=== PATIENT | male | born 1965 | race Caucasian/White ===

== ENCOUNTER 2020-03-02 14:16 | Outpatient (REF) | payer OTHER, SELFPAY ==
--- NOTE | 2020-03-02 14:19 | CT_ITS ---
EXAMINATION: CT CHEST WITHOUT CONTRAST CLINICAL INFORMATION: Necrotizing granulomatous inflammation of the lung. COMPARISON: None TECHNIQUE: Multidetector volumetric CT imaging of the chest was done. Axial MIP volume rendering provided. Sagittal and coronal reformatted images were obtained. This CT examination was performed using dose optimization techniques as appropriate, variously including the following: Automated exposure control Adjustment of mA and/or kV according to patient size (this includes techniques or standardized protocols for targeted exams where dose is matched to indication/reason for exam; i.e. extremities or head) Use of iterative reconstruction technique DLP: 167 mGy-cm FINDINGS: TABLE WORKER: Inflated lungs. LUNGS: There are post surgical changes in the left upper lobe with dense apical scar and/or postoperative changes similar to 06/21/2019. Small tubular/nodular opacities in the perihilar/medial left upper lobe extending to left apical pleural surface are stable. A dense apical lesion measuring 3.9 x 2.1 cm is stable. There is a left lower lobe basilar patchy opacity with surgical suture, stable since the previous study. Best visualized on axial image 341/7. No additional pulmonary nodule or mass is seen in either lungs. There is loss of left lung volume. There is bilateral emphysema. MEDIASTINUM: The thyroid lobes are symmetrical and normal. The central trachea and bronchi are widely patent. No abnormal sized mediastinal or hilar lymph nodes are seen. Heart size and the great vessels are of normal caliber. There is no pericardial effusion. PLEURA: There is no pleural effusion. No pleural mass or thickening. AXILLA: There are small shotty lymph nodes in bilateral axillae. UPPER ABDOMEN: Visualized liver, spleen, pancreas and bilateral adrenal glands are unremarkable. There are no radiopaque gallstones seen. OSSEOUS STRUCTURES: No lytic or sclerotic process seen. CT/CT chest wo con IMPRESSION: Post surgical changes left upper lung with a dense left apical mass-like opacity is unchanged. Small nodular opacities in the perihilar and medial left upper lobe extending to the left pleural space are similar to previous study. No change in mild emphysema.
== END 2020-03-02 14:17 | disposition home or self-care (01) ==
LOC: HO.CT 14:16
PROVIDERS: PCP Internal Medicine; Visit Provider Hospitalist
DX: M31.30 Wegener's granulomatosis without renal involvement (principal); R91.8 Other nonspecific abnormal finding of lung field; J84.89 Other specified interstitial pulmonary diseases
CPT/HCPCS: 71250

== ENCOUNTER → 2020-03-16 15:47 | Outpatient (BNVA) | payer OTHER, SELFPAY | PROVIDERS: PCP Internal Medicine; Visit Provider Hospitalist | DX: Z76.89 Persons encountering health services in other specified circumstances (principal) ==

== ENCOUNTER 2020-05-31 14:32 | Outpatient (REF) | payer OTHER, SELFPAY ==
[2020-05-31 17:41] LABS: TSH reflex Free T4 1.55 uIU/mL (0.32-4.0)
== END 2020-05-31 14:33 | disposition home or self-care (01) ==
LOC: HO.LAB 14:32
PROVIDERS: PCP Internal Medicine; Visit Provider Internal Medicine Cardiovascular Disease
DX: R06.00 Dyspnea, unspecified (principal); R06.02 Shortness of breath; R07.9 Chest pain, unspecified; I10 Essential (primary) hypertension; Z86.16 Personal history of COVID-19
CPT/HCPCS: 36415; 83880; 84443; 93005

== ENCOUNTER → 2020-06-08 14:12 | Outpatient (REF) | payer OTHER, SELFPAY ==
--- NOTE | 2020-06-08 14:15 | CA_ITS ---
Transthoracic Echocardiogram Patient (Last, First, Middle): Yazan Don A Gender: Male Date of : 1965 Age: 54 Procedure Date: 06/08/2020 Procedure Type: Transthoracic Echocardiogram Location: OP Height: 165.1 cm Weight: 97.52 kg BSA: 2.04 m2 Heart Rate: bpm BP: 148 / 90 mmHg Employee'S Representative: YANCY Ames MD: Jeremy Kinney MD Manager Regional Sales: Bassem Grey MD Symptoms: R06.00 - Dyspnea, unspecified Study Quality: Fair/Contrast ECG Rhythm: Sinus Conclusions: - Essentially normal study Findings Procedure Information Contrast agent, definity, is being given per protocol without apparent complications. Left Ventricle Normal left ventricular size, thickness, and systolic function. The visually estimated ejection fraction is between 60-65%. Diastolic function is normal for age. Right Ventricle Normal right ventricular cavity size and systolic function. Atria Both atria are normal in size. Aortic Valve The aortic valve structure and function is likely normal. There is no aortic valve stenosis. There is no aortic valve regurgitation. Mitral Valve Normal mitral valve structure and function. There is trace mitral valve regurgitation. There is no mitral valve stenosis. Pulmonic Valve The pulmonic valve is likely normal. Tricuspid Valve Likely normal tricuspid valve structure and function. Tricuspid regurgitation envelope is inadequate for calculation of right ventricular systolic pressure. Great Vessels All visible segments of the aorta are normal in size. The pulmonary artery was not well visualized. Venous The inferior vena cava is normal in size and collapses greater than 50% with inspiration. Pericardium/Pleural There is no evidence of pericardial effusion. Prior Study Comparison No prior study available for comparison. Measurements 2D Linear Measurements IVSd: 0.99 0.6-0.9/0.6-1.0 cm LVIDd: 4.27 3.9-5.3/4.2-5.9 cm LVIDd Index: 2.09 2.4-3.2/2.2-3.1 cm/m2 LVIDs: 3.09 2.0-3.6 cm LVPWd: 0.92 0.7-1.1 cm Ao Root: 3.30 2.1-3.5 cm LA Diam: 3.90 2.7-3.8/3.0-4.0 cm LAIDs Index: 1.91 1.5-2.3 cm/m2 LV Mass: 164.14 67-162/88-224 g LV Mass Index: 80.46 43-95/49-115 g/m2 LVOT Diam: 2.00 3.0+(-)1.3 cm 2D Systolic Function EF 4C: 59.10 >55% EF 2C: 66.00 >55% EF BiP: 63.00 >55% Mitral Valve MV Pk E: 0.77 MV PK A: 0.56 MV Decel Time: 292.00 E/A: 1.40 E'Lateral: 7.83 E'Medial: 6.64 E/E' Med: 11.60 E/E' Lat: 9.80 PHT: 86.00 MVA PHT: 2.56 Decel Mellette: 2.64 Aortic Valve AoV Pk Yfn: 1.39 AoV Mn Yfn: 0.95 AoV VTI: 0.29 AoV Pk Grad: 8.00 Aov Mn Grad: 4.00 TAZ Cont.VTI: 2.12 LVOT LVOT Pk Yfn: 0.91 LVOT Mn Yfn: 0.63 LVOT VTI: 0.20 LVOT Pk Grad: 3.00 LVOT Mn Grad: 2.00 LVOT Diam: 2.00 LVOT Area: 3.14 Diastolic Function MV Pk E: 0.77 MV Pk A: 0.56 E/A: 1.40 E'Medial: 6.64 E/E' Med: 11.60 E' Laterial: 7.83 E/E' Lat: 9.80 Great Vessels Aorta Ao Root-2D: 3.30 2.0-3.7 cm Ao Asc: 3.60 2.1-3.4 cm Ao Arch: 3.10 Updated in Other Vendor System with Status of Final Bassem Grey MD electronically signed on 06/08/2020 6:03:09 PM with status of Final
== END ==
LOC: HO.CARD 14:12
PROVIDERS: Visit Provider Internal Medicine Cardiovascular Disease
DX: R06.00 Dyspnea, unspecified (principal)
CPT/HCPCS: 93306; Q9957

== ENCOUNTER 2020-06-16 15:26 | Outpatient (REF) | payer OTHER, SELFPAY ==
--- NOTE | ~2020-06-16 | XR_ITS ---
EXAMINATION: XR CHEST CLINICAL INFORMATION: R07.89 - Other chest pain COMPARISON: CT chest noncontrast 03/02/2020, 06/21/2019 TECHNIQUE: 2 views of the chest were obtained. FINDINGS: There is patchy pleural parenchymal scarring left apex and density left base presumed to represent round atelectasis on CT exams. There is no new airspace consolidation or groundglass opacity or effusion. No pneumothorax or pneumomediastinum. The cardiac and hilar and mediastinal contours and bony structures are stable. XR/XR chest 2V IMPRESSION: Patchy densities left apex and left base similar to prior imaging. No acute abnormality.
[2020-06-16 17:12] LABS: MANUAL DIFF FLAG NO
[2020-06-16 17:23] LABS: Basophils Absolute Auto 0.1 X10*3/uL (0.0-0.2); Basophils Percent Auto 0.7 % (0-2); Eosinophils Absolute Auto 0.3 X10*3/uL (0.0-0.4); Eosinophils Percent Auto 2.3 % (0-4); Hematocrit 45.5 % (42-52); Hemoglobin 15.5 g/dl (14.0-18.0); Imm Gran Abs Auto 0.17 X10*3/uL (0.00-0.03); Imm Gran Pct Auto 1.3 % (0.0-0.4); Lymphocytes Absolute Auto 4.8 X10*3/uL (1.2-4.9); Lymphocytes Percent Auto 37.7 % (20-40); Mean Corpuscular HGB Conc 34.1 g/dl (31.0-36.0); Mean Corpuscular Hemoglobin 29.1 pg (27.0-33.0); Mean Corpuscular Volume 85.5 fL (80-98); Mean Platelet Volume 10.3 fL (9.4-12.4); Monocytes Absolute Auto 1.4 X10*3/uL (0.1-1.2); Monocytes Percent Auto 11.3 % (2-11); Neutrophils Absolute Auto 5.9 X10*3/uL (2.0-8.3); Neutrophils Percent Auto 46.7 % (45-73); Platelet Count 344 X10*3/uL (160-400); Red Blood Count 5.32 X10*6/uL (4.60-5.80); Red Cell Distribution Width 12.8 % (11.0-16.0); White Blood Count 12.7 X10*3/uL (4.8-10.8)
[2020-06-16 17:45] LABS: B Type Natriuretic Peptide 19 pg/mL (<100)
[2020-06-16 18:26] LABS: Erythrocyte Sedimentation Rate 5 MM/HR (0-15)
[2020-06-17 07:51] LABS: SARS COV2 IgG Positive (Negative)
== END 2020-06-16 15:27 | disposition home or self-care (01) ==
LOC: HO.LAB 15:26
PROVIDERS: PCP Internal Medicine; Visit Provider Hospitalist
DX: J64 Unspecified pneumoconiosis (principal); J45.40 Moderate persistent asthma, uncomplicated; R91.8 Other nonspecific abnormal finding of lung field; Z86.16 Personal history of COVID-19; Z01.84 Encounter for antibody response examination
CPT/HCPCS: 36415; 71046; 83880; 85025; 85652; 86769

== ENCOUNTER → 2020-06-29 14:35 | Outpatient (BNVA) | payer OTHER, SELFPAY | PROVIDERS: PCP Internal Medicine; Visit Provider Internal Medicine Cardiovascular Disease ==

== ENCOUNTER → 2020-07-27 07:51 | Outpatient (REF) | payer OTHER, SELFPAY ==
--- NOTE | 2020-07-27 07:58 | CA_ITS ---
Acquisition Time: 2020-07-27 08:02:00 Total Exercise Time: 00:06:33 Test Indications: Dyspnea Medications: FUROSEMIDE Protocol: YARIEL Max HR: 133 BPM 79% of Pred: 167 BPM Max BP: 210/090 mmHG Max Work Load: 7.7 METS Exercise stress test using Yariel protocol, total of 6 min 33 sec. METS 7.70 and TAPHR up to 79%. HR attenuated by betablocker. Hypertensive response to exercise. EKG without arrhythmia, no ischemic changes seen during exercise or in recovery. Test reviewed with Dr. Barrios Referred By: Jeremy Kinney Overread By: Blanca Correa NP
== END ==
LOC: HO.CARD 07:51
PROVIDERS: PCP Internal Medicine; Visit Provider Internal Medicine Cardiovascular Disease
DX: R06.00 Dyspnea, unspecified (principal)
CPT/HCPCS: 93016; 93017; 93018

== ENCOUNTER → 2020-08-03 14:23 | Outpatient (BNVA) | payer OTHER, SELFPAY | PROVIDERS: PCP Internal Medicine; Visit Provider Internal Medicine Cardiovascular Disease ==

== ENCOUNTER → 2020-08-04 14:55 | Outpatient (BNVA) | payer OTHER, SELFPAY | PROVIDERS: PCP Internal Medicine; Visit Provider Hospitalist ==

== ENCOUNTER → 2020-10-13 15:13 | Outpatient (BNVA) | payer OTHER, SELFPAY | PROVIDERS: PCP Internal Medicine; Visit Provider Hospitalist ==

== ENCOUNTER → 2021-01-03 15:07 | Outpatient (BNVA) | payer OTHER, SELFPAY | PROVIDERS: PCP Internal Medicine; Visit Provider Internal Medicine Cardiovascular Disease ==

== ENCOUNTER → 2021-02-22 14:26 | Outpatient (BNVA) | payer OTHER, SELFPAY | PROVIDERS: PCP Internal Medicine; Visit Provider Hospitalist ==

== ENCOUNTER → 2021-05-03 14:37 | Outpatient (BNVA) | payer OTHER, SELFPAY | PROVIDERS: PCP Internal Medicine; Visit Provider Hospitalist | DX: R91.8 Other nonspecific abnormal finding of lung field (principal); G89.12 Acute post-thoracotomy pain ==

== ENCOUNTER 2021-05-11 10:43 | Outpatient (REF) | payer OTHER, SELFPAY | END 2021-05-11 10:44 | disposition home or self-care (01) | LOC: HO.LNP 10:43 | PROVIDERS: Visit Provider Hospitalist | DX: Z13.89 Encounter for screening for other disorder (principal) ==

== ENCOUNTER → 2021-07-19 14:32 | Outpatient (BNVA) | payer OTHER, SELFPAY | PROVIDERS: PCP Internal Medicine; Referring Provider Internal Medicine; Visit Provider Internal Medicine Cardiovascular Disease | DX: R06.00 Dyspnea, unspecified (principal); I10 Essential (primary) hypertension | CPT/HCPCS: 93005 ==

== ENCOUNTER → 2021-07-27 12:55 | Outpatient (BNVA) | payer OTHER, SELFPAY | PROVIDERS: PCP Internal Medicine; Visit Provider Hospitalist | DX: R91.8 Other nonspecific abnormal finding of lung field (principal); G89.12 Acute post-thoracotomy pain ==

== ENCOUNTER 2021-09-17 15:32 | Outpatient (REF) | payer OTHER, SELFPAY ==
--- NOTE | ~2021-09-17 | CT_ITS ---
EXAMINATION: CT CHEST WITHOUT CONTRAST CLINICAL INFORMATION: Abnormal lung findings. COMPARISON: CT chest 03/03/2020 and 06/21/2019. TECHNIQUE: Multidetector volumetric CT imaging of the chest was done. Axial MIP volume rendering provided. Sagittal and coronal reformatted images were obtained. This CT examination was performed using dose optimization techniques as appropriate, variously including the following: *Automated exposure control *Adjustment of mA and/or kV according to patient size (this includes techniques or standardized protocols for targeted exams where dose is matched to indication/reason for exam; i.e. extremities or head) *Use of iterative reconstruction technique DLP: 187 mGy-cm FINDINGS: PATIENT DAY COORDINATOR: Well-expanded lungs. LUNGS: There are postsurgical changes seen in left upper lobe similar to previous study with dense apical scar and thickening similar to previous study. There is dense apical scar measuring 4 x 3 cm and almost similar to previous study. There is left apical posterior pleural thickening as well. Small tubular lucency surrounded by thin parenchyma along the medial left apex is stable. There is no worsening. Left basilar patchy opacity likely chronic scarring and atelectasis with surgical sutures are stable. No new pulmonary nodule, mass or consolidation seen. MEDIASTINUM: The thyroid lobes are symmetrical. The central trachea and the bronchi are widely patent. A few small shotty lymph nodes in the mediastinum none of which are significant. Heart size and the great vessels are normal caliber. No pericardial effusion seen. PLEURA: There is mild left apical and and posterior left upper lobe pleural thickening, stable. AXILLA: No lymphadenopathy. UPPER ABDOMEN: Visualized liver, spleen, pancreas and bilateral adrenal glands are unremarkable. The gallbladder has been surgically removed. OSSEOUS STRUCTURES: No aggressive lytic or sclerotic process seen. There is mild ventral spondylosis. CT/CT chest wo con IMPRESSION: Postsurgical changes left upper lobe and postsurgical changes left lower lobe are all stable. Dense left apical thickening and scar-like changes are stable. There are no new pulmonary nodules. No abnormal mediastinal or axillary lymph node seen. Fleischner guidelines were followed.
== END 2021-09-17 15:33 | disposition home or self-care (01) ==
LOC: HO.CT 15:32
PROVIDERS: Visit Provider Hospitalist
DX: R91.8 Other nonspecific abnormal finding of lung field (principal)
CPT/HCPCS: 71250

== ENCOUNTER 2021-12-14 14:40 | Outpatient (REF) | payer OTHER, SELFPAY ==
--- NOTE | 2021-12-14 17:29 | PFT_ITS ---
FLOWS: FEV1 75% of predicted at 2.36 L. FVC 72% of predicted at 2.94 L. FEV1 to FVC ratio of 0.80 No bronchodilator response. LUNG VOLUMES: Total lung capacity 71% of predicted at 4.28 L. Residual volume 64% of predicted at 1.20 L. Slow vital capacity 75% of predicted at 3.08 L. Expiratory reserve volume 62% of predicted at 0.71 L. Diffusion capacity is mildly decreased, diffusion capacity corrects to normal after adjustment for alveolar ventilation. IMPRESSION: Moderate restrictive ventilatory defect with no bronchodilator response. Decreased expiratory reserve volume suggests extrathoracic restriction likely secondary to abdominal obesity. Jim Issa MD AP/MODL / [id number]
== END 2021-12-14 14:41 | disposition home or self-care (01) ==
LOC: HO.RESP 14:40
PROVIDERS: PCP Internal Medicine; Visit Provider Hospitalist
DX: G47.33 Obstructive sleep apnea (adult) (pediatric) (principal)
CPT/HCPCS: 94060; 94727; 94729

== ENCOUNTER → 2022-01-04 19:30 | Outpatient (REF) | payer OTHER, SELFPAY | LOC: HO.SL 19:30 | PROVIDERS: PCP Internal Medicine; Visit Provider Hospitalist | DX: G47.33 Obstructive sleep apnea (adult) (pediatric) (principal) | CPT/HCPCS: 95811 ==

== ENCOUNTER → 2022-05-24 14:08 | Outpatient (BNVA) | payer OTHER, SELFPAY | PROVIDERS: PCP Internal Medicine; Visit Provider Hospitalist | DX: R91.8 Other nonspecific abnormal finding of lung field (principal); G89.12 Acute post-thoracotomy pain; J62.8 Pneumoconiosis due to other dust containing silica; J44.9 Chronic obstructive pulmonary disease, unspecified; G47.33 Obstructive sleep apnea (adult) (pediatric) ==

== ENCOUNTER 2022-08-15 14:22 | Outpatient (REF) | payer OTHER, SELFPAY ==
--- NOTE | ~2022-08-15 | CT_ITS ---
EXAMINATION: CT CHEST WITHOUT CONTRAST CLINICAL INFORMATION: Nonspecific abnormal finding of lung field COMPARISON: Previous chest CT most recent August 2021 TECHNIQUE: Multidetector volumetric CT imaging of the chest was done. Axial MIP volume rendering provided. Sagittal and coronal reformatted images were obtained. This CT examination was performed using dose optimization techniques as appropriate, variously including the following: *Automated exposure control *Adjustment of mA and/or kV according to patient size (this includes techniques or standardized protocols for targeted exams where dose is matched to indication/reason for exam; i.e. extremities or head) *Use of iterative reconstruction technique DLP: 167 mGy-cm FINDINGS: LUNGS: There is evidence of emphysema. There are stable postsurgical changes to the left lung. There is a abnormal parenchymal density at the left lung apex measuring approximately 2.7 x 3.7 cm axial image 75 series 7 that is stable. There is adjacent pleural thickening. There is mucus plugging and bronchiectasis seen in the left upper lobe. This is unchanged. There is a surgical staple line seen in the lingula. There are nodular opacities seen adjacent to the surgical staple line. There is a area of focal bronchiectasis seen in this region on prior exam and this may represent mucus plugging. This appears new or increased from prior exam and attention on follow-up recommended. Largest discrete nodule measures 6 mm axial image 266 series 7. There is a surgical staple line seen in the left lower lobe. There is adjacent pleural thickening and peripheral consolidation without whirled central appearance that is suggestive of round atelectasis, for example axial image 358 series 7. This is unchanged. The right lung is clear. No central endobronchial or endotracheal lesion. MEDIASTINUM: The mediastinum is normal. CORONARY ARTERY CALCIFICATION: None visualized on this study. PLEURA: There is no pleural effusion. Minimal pleural thickening adjacent to the left lower lobe that is stable. AXILLA: No lymphadenopathy. UPPER ABDOMEN: Absent spleen. Left renal cyst. Diverticulosis of the colon. Cholecystectomy. OSSEOUS STRUCTURES: Mild degenerative changes of the spine. CT/CT chest wo IV con IMPRESSION: New or increasing nodules in the lingula adjacent to a surgical staple line. This is seen in the area of focal bronchiectasis and may represent mucus plugging. Attention on follow-up recommended. Stable mucus plugging and bronchiectasis in the left upper lobe. Stable peripheral or subpleural parenchymal density at the left lung apex. Stable probable round atelectasis in the left lower lobe adjacent to surgical suture line. Fleischner guidelines were followed.
== END 2022-08-15 14:23 | disposition home or self-care (01) ==
LOC: HO.CT 14:22
PROVIDERS: PCP Internal Medicine; Visit Provider Hospitalist
DX: R91.8 Other nonspecific abnormal finding of lung field (principal)
CPT/HCPCS: 71250

== ENCOUNTER → 2022-10-04 14:43 | Outpatient (BNVA) | payer OTHER, SELFPAY | PROVIDERS: PCP Internal Medicine; Visit Provider Hospitalist | DX: J44.9 Chronic obstructive pulmonary disease, unspecified (principal); R91.8 Other nonspecific abnormal finding of lung field; J62.8 Pneumoconiosis due to other dust containing silica; J64 Unspecified pneumoconiosis; R06.00 Dyspnea, unspecified; R07.9 Chest pain, unspecified; G47.33 Obstructive sleep apnea (adult) (pediatric) | CPT/HCPCS: 99212 ==

== ENCOUNTER → 2022-11-07 11:07 | Outpatient (BNVA) | payer OTHER, SELFPAY | PROVIDERS: PCP Internal Medicine; Visit Provider Hospitalist | DX: R91.8 Other nonspecific abnormal finding of lung field (principal); G89.12 Acute post-thoracotomy pain; J62.8 Pneumoconiosis due to other dust containing silica; J44.9 Chronic obstructive pulmonary disease, unspecified; G47.33 Obstructive sleep apnea (adult) (pediatric) ==

== ENCOUNTER 2023-02-07 14:34 | Outpatient (AMB) | payer OTHER, SELFPAY ==
--- NOTE | 2023-02-07 14:43 | A.OFFVIS_ITS ---
Intake Vital Signs 02/07/23 14:45 Height 5 ft 5 in Weight 207 lb 3.752 oz BMI 34.5 Pulse 83 Pulse Source Pulse Oximeter Pulse Oximetry (%) 96 Oxygen Delivery Method Room Air Intake Visit Reasons: Asthma As400 Developer Required: No Allergies No Known Allergies Allergy (Verified 02/07/23 14:46) HPI HPI Comments History of Present Illness Details The patient is a 57-year-old gentleman with a known history of nodular densities. Apparently back in 2017 he had a shoulder injury and he went to get an x-ray. His x-ray was abnormal with the an abnormal finding on the lung field. Therefore he underwent a CT scan of the chest demonstrating a masslike density in the left upper lobe area. He also had other densities. He had a PET scan apparently was positive in had a biopsy at that time. CT guided biopsy demonstrated that he had some inflammation although nondiagnostic. Then everything was left alone until again 2018 when he was not feeling well. He was having some malaise symptoms along with not feeling well. Denied any respiratory symptoms the time. He underwent a repeat imaging study and subsequently repeat biopsy demonstrating now giant cell allergic reaction along with what appears to be a foreign body reaction. The patient all the really was referred to a thoracic surgery where he had a wedge resection. 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 Also to note that hypersensitivity panel was significantly elevated for a lot of mold. His microbiology from the wedge resections are still pending no growth today. No evidence of any acid-fast disease. He is tolerating the Breo inhaler and this appears to be helping. Denies any productive coughing or significant wheezing. He does have a dry cough at times and times he can not be barking nature. He does still get some discomfort to the left side does with the area that he had a surgery in addition to the fact that he does some heavy lifting at work. We did review his CT scan from November 2018 in addition to his CT scan from May 2019. The left upper lobe masslike densities pre similar in anything possibly little larger in size. The other nodular densities phone in the lingula and also in the left lower lobe have appear to be improved. Still acosta s a emphysematous changes the unilateral side. Plan to repeat the CT scan sometime in February and at that time depending on the findings with decide to potentially do a bronchoscopy. We did review all the cultures from [facility] in all were negative for any mycobacterial infections or fungal infections. 02/22/2021 the patient is here for a pulmonary follow-up visit. He still continues to have significant pleuritic discomfort around the left hemithorax. His where he has the left upper lobe mass in addition to undergoing surgery. This discomfort has kept him from being able function. He has been working on lifestyle changes. He has lost weight. He is tolerating the Daliresp but only every other day. I did ask him to see if he can try taking it daily. I am hoping that the anti-inflammatory effects will help him with his underlying respiratory symptoms. In addition to that he is tolerating the gabapentin. However he is not using it every night. I did request that he try to use it every night as this is going to stabilize some of the neuropathic discomfort that he has. In view of the persistent chest discomfort I will request a repeat CT scan to further address any progression of this masslike density that he has in his lung. at this point will focus on his pain management. The patient has legitimate chest discomfort. It is keeping him from being able to work regularly in play with his grandkids. He did have a full cardiac evaluation. Does not appear to have significant risk for CAD. 07/27/2021 the patient is here for a pulmonary follow-up visit. He continues to have the same significant pleuritic discomfort on the left hemithorax. 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 His last CT scan of the chest demonstrating no significant changes on the larger masslike densities. However, he did have a new 6 mm pulmonary nodule that will need follow-up. Some clear of this nodules related although is less likely to be so. We did request a 2nd opinion on the biopsy that was done. 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 The patient had been exposed to significant blast beating for many years while working for [employer]. The patient is no longer in that department. The patient has been on Trelegy with good response to his respiratory status. The tramadol has been helping his pain and the Lidoderm patch as well. He was also started on Daliresp call to try to help decrease the inflammatory changes and minimize the use of prednisone. Patient also using gabapentin at nighttime with good effect. At this point the patient will need a repeat CT scan to follow up with the new 6 mm pulmonary nodule. 11/22/2021 the patient is here for a pulmonary follow-up visit. She still complains of his ongoing chest discomfort which is pleuritic in nature. Moderate severity. And also now complaining of increasing dyspnea on exertion. Likely primarily due to the weather. there are times when he is at work that he has a hard time with breathing. He does state that although he is not working directly with last eating he does walk to that area that is significantly [place]. 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 The patient needs to minimize any exposure to inorganic dust specially with his ongoing airway and parenchymal lung disease. During the visit we did go for 6 minutes walk test. The patient does not require oxygen supplementation. He actually did well. It is ox of the shortness of breath is mainly when he goes outside and he is exposed to the elements. We did talk ab out humidity and also around all zone playing a role in her difficulty breathing. He does have his Trelegy inhaler. Will make sure that he always takes his rescue inhalers use as needed. In the meantime he does complaint of daytime drowsiness. He does snore significantly. He does wake up tired. His [place] score is elevated 14/24. He did have a home sleep study done which was nondiagnostic. This was more than a year ago. He could not sleep well with it. At this point I am recommending that he have an in-lab study since he already failed an outpatient home study. 02/22/2022 the patient is here for a pulmonary follow-up visit. Overall continues with similar complaints with significant chest discomfort episodes of shortness of breath. He also continues to have significant daytime drowsiness with an [place] score of 11/24. Did have a in-lab sleep study which did reviewed together. It appears that he does have severe sleep apnea. He was then titrated on CPAP after meeting the criteria and his symptoms were improved with CPAP of 10 cm. Will go ahead and place him on APAP at this time and request a urgent machine to treat his severe sleep apnea. I am hopeful that by treating the sleep apnea the some of the other constitutional symptoms improved. He continues to rely on some tramadol. he continues with respiratory therapy. While he was in [place] visiting family his asthma symptoms worsened significantly and had a hard time with his breathing. Now his symptoms are improved. 05/24/2022 the patient is here for a pulmonary follow-up visit. He did start us ing the CPAP. The CPAP therapy has been affecting beneficial. He has been tolerating the BiPAP. However, he was not tolerating the mask that he did get from the [facility]. He did better with the mask that he had from the sleep study. Therefore I did request that which was stated N20 large mask. he does need to get a chinstrap to minimize under dryness of the mouth. The pain continues to be initial. 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 He knows to minimize the medication if possible. He also uses Lidoderm patch that to help him really get some relief as well. He has been using his respiratory medications in addition to the Daliresp. he will continue to struggle with his chronic respiratory complaints including the chest discomfort in the shortness of breath that he is slowly working to try to improved although it it is a significant limitation in a quality of life issue for him and his family. 10/07/2022 the patient is here for pulmon gonsalo follow-up visit. He has been having hard time lately with increasing shortness of breath. Complains of chest tightness and fatigue. Sometimes hard for him to get to work. At work he does wear a mask when needed. Although he still feels like he is getting exposed to significant amount of in organic dust in his work environment and also in other areas. I do believe the patient has likely more inflammatory changes.. The CT scan of the chest demonstrating interval increase in his airspace disease which is concerning. Will go ahead and treated with some prednisone to see if this helps decrease inflammation and hopefully his symptoms as well. In the meantime, the a he has an appointment in [place] [facility] to further address his pneumoconiosis further. In view of the slight increase in size of his left upper lobe parenchymal process taking view important for additional evaluation. Will even consider re-biopsy of this area. Although, the initial biopsy was and still is painful. The patient also continues uses CPAP every night. CPAP therapy continues to be affecting beneficial. He does use it for more than 4 hours a night. He has been getting supplies readily. Pain control he has been using as needed tramadol and also will try the prednisone to decrease inflammation at this time. 11/07/2022 The patient is here for a pulm onary follow up. The patient feels like it is getting worse. Complains of worsening dyspnea worsening fatigue. Also having worsening left-sided chest discomfort. Based on his last CT scan there was some interval increase in the area of airspace disease. He did take the trial of prednisone but did not see any significant improvement. He does continue with his respiratory therapy and also he has been using the CPAP at nighttime. The CPAP therapy continues to be affecting beneficial. He is scheduled to go to [place] for 2nd opinion the end of November. At this point would be prudent in view of his worsening symptoms to have him stay out of work until that evaluation. 02/07/2023 the patient is here for pulmonary follow-up visit. Overall he is doing about the same. He is back to work. The patient needs to wear respirato r. He is concerned about the worsening density in his lung. He was referred to [place] will be reviewing the pathology in the radiology and getting back to us. Depending on the findings will likely place him on immunomodulator for period time and then reimage closer to a year from his last CT scan which be in July 2023. we did talk about potentially methotrexate or mycophenolate as p otential medications. Will have blood work today to assess his blood work prior to starting the medication. The patient continues uses CPAP every night CPAP therapy continues to be affecting beneficial when he does use it for more than 4 hours a night. Also continues with respiratory therapy. 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 Pulmonary nodules Surgical History History of knee surgery History of splenectomy History of vasectomy Hx of cholecystectomy Family History Mother Embolism Father HTN (hypertension) Partial sight in both eyes Hypercholesteremia Sister Sleep apnea Kidney disease HTN (hypertension) Asthma Arthritis Paternal Grandmother Cancer Social History Alcohol intake: never Patient Tobacco Use Status: Former Tobacco user Review of Systems Const Denies chills, Denies daytime sleepiness, Reports difficulty sleeping, Reports fatigue, Denies fever(s), Denies frequent falls, Reports headache(s), Denies night sweats, Denies poor appetite, Denies snoring, Denies stops breathing during sleep, Denies weakness and Reports weight loss Eyes Denies loss of vision ENT Denies dizziness, Reports headache(s) and Denies hearing loss Card Reports chest pain, Denies claudication, Denies leg edema, Denies lightheadedness, Reports palpitations, Reports dyspnea, Reports dyspnea on exertion and Denies orthopnea Resp Denies cough, Denies excessive phlegm production, Reports pain on inspiration, Reports pain with cough, Reports dyspnea, Reports dyspnea on exertion, Denies snoring and Denies wheezing GI Denies abdominal pain, Denies hematochezia, Denies change in bowel habits, Denies change in stool character, Denies heartburn, Denies nausea and Denies vomiting Denies dysuria and Denies urinary frequency Musc Denies arthralgias, Denies muscle weakness, Denies numbness and Denies other (Frequent falls) Skin/Breast Denies nail changes and Denies rash Neuro Denies dizziness, Denies frequent falls, Reports headache(s), Denies loss of vision, Denies memory loss, Denies numbness and Denies weakness Psych Denies depression and Denies memory loss Endo Reports fatigue and Reports palpitations Aller/Immun Denies wheezing Physical Exam Vital Signs: Last Vital Signs Pulse 83 02/07/23 14:45 Pulse Ox 96 02/07/23 14:45 Oxygen Delivery Method Room Air 02/07/23 14:45 BMI result Body Mass Index 34.5 Const General: alert Neck Neck: Yes normal visual inspection, Yes full ROM and Yes no lymphadenopathy Chest Chest palpation & inspection: tenderness rib Resp Auscultation: diminished lung sounds Cardio Rate: regular rate Rhythm: regular rhythm Heart sounds: S1 normal heart sound present and S2 normal heart sound present GI Palpation (GI): Soft to palpation and nontender Auscultation: normal bowel sounds Skin General skin exam: rashes and/or lesions noted Assessment & Plan Assessment & Plan (1) Asthma-COPD overlap syndrome: Code(s): J44.9 - Chronic obstructive pulmonary disease, unspecified (2) Pulmonary nodules: Code(s): R91.8 - Other nonspecific abnormal finding of lung field (3) Pneumoconiosis: Code(s): J64 - Unspecified pneumoconiosis (4) Lung mass: Code(s): R91.8 - Other nonspecific abnormal finding of lung field (5) Dyspnea: Code(s): R06.00 - Dyspnea, unspecified Qualifiers: Dyspnea type: dyspnea on exertion Qualified Code(s): R06.00 - Dyspnea, unspecified (6) Chest pain: Code(s): R07.9 - Chest pain, unspecified Qualifiers: Chest pain type: chest pain on breathing Qualified Code(s): R07.1 - Chest pain on breathing (7) CINTHIA (obstructive sleep apnea): Code(s): G47.33 - Obstructive sleep apnea (adult) (pediatric) Plan Needs to avoid all inorganic dust based on the fact that he already has evidence of interstitial lung disease. He continues to express concern about his work related exposure. Has worsening symptoms. Would benefit from removal of that exposure for until the evaluation from [place]. Awaiting review of pathology and radiology at the [facility] in [place]. continue APAP to treat his severe CINTHIA, new mask N20 large with Chin strap continue Daliresp, consider stopping Continue Trelegy Continue Gabapentin at night Pain management: toradol as needed, lidoderm patch, gabapentin CT chest serially 07/2022, with slight worsening. Will await input from [place] ?immunomodulator F/U 2-3 months Orders: Orders Complete Blood Count Auto Diff 02/07/23 R91.8 - Other nonspecific abnormal finding of lung field Basic Metabolic Panel 02/07/23 R91.8 - Other nonspecific abnormal finding of lung field Erythrocyte Sedimentation Rate 02/07/23 R91.8 - Other nonspecific abnormal finding of lung field Liver Panel 02/07/23 R91.8 - Other nonspecific abnormal finding of lung field Medications: Refilled [id number] 100-62.5-25 mcg (Trelegy Ellipta) 1 inh inhalation DAILY 30 days 60 ea 11RF J44.9 - Chronic obstructive pulmonary disease, unspecified roflumilast (Daliresp) 500 mcg PO DAILY 30 tabs 11RF tramadol 50 mg PO DAILY 30 days PRN 30 tabs 0RF pain R91.8 - Other nonspecific abnormal finding of lung field gabapentin 600 mg (2 x 300 mg) PO BEDTIME 60 caps 0RF Coding Level of Care Code Est Pt Level 5 (95405) Diagnoses Asthma-COPD overlap syndrome J44.9 Pulmonary nodules R91.8 Pneumoconiosis J64 Lung mass R91.8 Dyspnea on exertion R06.00 Dyspnea type: dyspnea on exertion Chest pain on breathing R07.1 Chest pain type: chest pain on breathing CINTHIA (obstructive sleep apnea) G47.33 Time Spent (min) 30
[2023-02-07 14:45] VITALS: PULSE 83; O2SAT 96; BMI 34.5
== END 2023-02-07 15:17 | disposition home or self-care (01) ==
PROVIDERS: PCP Internal Medicine; Visit Provider Hospitalist
DX: J44.9 Chronic obstructive pulmonary disease, unspecified (principal); R91.8 Other nonspecific abnormal finding of lung field; J64 Unspecified pneumoconiosis; R07.1 Chest pain on breathing; G47.33 Obstructive sleep apnea (adult) (pediatric)
CPT/HCPCS: 99214

== ENCOUNTER 2023-02-07 14:34 | Outpatient (REF) | payer OTHER, SELFPAY ==
[2023-02-07 15:25] LABS: MANUAL DIFF FLAG NO
[2023-02-07 15:42] LABS: Basophils Absolute Auto 0.1 X10*3/uL (0.0-0.2); Basophils Percent Auto 0.8 % (0-2); Eosinophils Absolute Auto 0.1 X10*3/uL (0.0-0.4); Eosinophils Percent Auto 0.9 % (0-4); Hematocrit 46.7 % (42.0-52.0); Hemoglobin 16.1 g/dl (14.0-18.0); Imm Gran Abs Auto 0.14 X10*3/uL (0.00-0.03); Imm Gran Pct Auto 1.3 % (0.0-0.4); Lymphocytes Absolute Auto 3.1 X10*3/uL (1.2-4.9); Lymphocytes Percent Auto 27.3 % (20-40); Mean Corpuscular HGB Conc 34.5 g/dl (31.0-36.0); Mean Corpuscular Hemoglobin 28.8 pg (27.0-33.0); Mean Corpuscular Volume 83.5 fL (80.0-98.0); Mean Platelet Volume 9.7 fL (9.4-12.4); Monocytes Percent Auto 9.3 % (2-11); Neutrophils Absolute Auto 6.8 x10*3/uL (2.0-8.3); Neutrophils Percent Auto 60.4 % (45-73); Platelet Count 377 X10*3/uL (160-400); Red Blood Count 5.59 X10*6/uL (4.60-5.80); Red Cell Distribution Width 12.8 % (11.0-16.0); White Blood Count 11.2 X10*3/uL (4.8-10.8)
[2023-02-07 16:27] LABS: Alanine Aminotransferase 29 U/L (0-40); Albumin Level 4.4 g/dL (3.5-5.0); Alkaline Phosphatase 91 U/L (39-117); Anion Gap 14 (12-20); Aspartate Amino Transferase 21 U/L (5-37); Bilirubin Direct 0.4 mg/dL (0.0-0.5); Bilirubin Total 1.3 mg/dL (0.0-1.0); Blood Urea Nitrogen 13 mg/dL (9-16); Calcium 9.6 mg/dL (8.4-10.2); Carbon Dioxide 25 mmol/L (22-29); Chloride 106 mmol/L (96-108); Estimated Glomerular Filt Rate > 60; Glucose Random 154 mg/dL (60-115); Sodium 141 mmol/L (135-145); Total Protein 7.9 g/dL (6.5-8.0)
[2023-02-07 16:33] LABS: Erythrocyte Sedimentation Rate 2 MM/HR (0-15)
== END 2023-02-07 14:35 | disposition home or self-care (01) ==
LOC: HO.LAB 14:34
PROVIDERS: PCP Internal Medicine; Visit Provider Hospitalist
DX: R91.8 Other nonspecific abnormal finding of lung field (principal); R07.1 Chest pain on breathing; G89.12 Acute post-thoracotomy pain; J62.8 Pneumoconiosis due to other dust containing silica; J44.9 Chronic obstructive pulmonary disease, unspecified; G47.33 Obstructive sleep apnea (adult) (pediatric)
CPT/HCPCS: 36415; 80048; 80076; 85025; 85652

== ENCOUNTER 2023-05-09 14:14 | Outpatient (AMB) | payer OTHER, SELFPAY ==
--- NOTE | 2023-05-09 14:34 | A.OFFVIS_ITS ---
Intake Vital Signs 05/09/23 14:35 Height 5 ft 5 in Weight 207 lb 3.752 oz BMI 34.5 Pulse 89 Pulse Source Pulse Oximeter Pulse Oximetry (%) 96 Oxygen Delivery Method Room Air Intake Visit Reasons: Asthma Allergies No Known Allergies Allergy (Verified 05/09/23 14:36) HPI HPI Comments History of Present Illness Details The patient is a 57-year-old gentleman with a known history of nodular densities. Apparently back in 2017 he had a shoulder injury and he went to get an x-ray. His x-ray was abnormal with the an abnormal finding on the lung field. Therefore he underwent a CT scan of the chest demonstrating a masslike density in the left upper lobe area. He also had other densities. He had a PET scan brian arently was positive in had a biopsy at that time. CT guided biopsy demonstrated that he had some inflammation although nondiagnostic. Then everything was left alone until again 2018 when he was not feeling well. He was having some malaise symptoms along with not feeling well. Denied any respiratory symptoms the time. He underwent a repeat imaging study and subsequently repeat biopsy demonstrating now giant cell allergic reaction along with what appears to be a foreign body reaction. The patient all the really was referred to a thoracic surgery where he had a wedge resection. 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 Also to note that hypersensitivity panel was significantly elevated for a lot of mold. His microbiology from the wedge resections are still pending no growth today. No evidence of any acid-fast disease. He is tolerating the Breo inhaler and this appears to be helping. Denies any productive coughing or significant wheezing. He does have a dry cough at times and times he can not be barking nature. He does still get some discomfort to the left side does with the area that he had a surgery in addition to the fact that he does some heavy lifting at work. We did review his CT scan from November 2018 in addition to his CT scan from May 2019. The left upper lobe masslike densities pre similar in anything possibly little larger in size. The other nodular densities phone in the lingula and also in the left lower lobe have appear to be improved. Still has a emphysematous changes the unilateral side. Plan to repeat the CT scan sometime in February and at that time depending on the findings with decide to potentially do a bronchoscopy. We did review all the cultures from [facility] in all were negative for any mycobacterial infections or fungal infections. 05/24/2022 the patient is here for a pulmonary follow-up visit. He did start using the CPAP. The CPAP therapy has been affecting beneficial. He has been tolerating the BiPAP. However, he was not tolerating the mask that he did get from the [employer]. He did better with the mask that he had from the sleep study. Therefore I did request that which was stated N20 large mask. he does need to get a chinstrap to minimize under dryness of the mouth. The pain continues to be initial. 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 He knows to minimize the medication if possible. He also uses Lidoderm patch that to help him really get some relief as well. He has been using his respiratory medications in addition to the Daliresp. he will continue to struggle with his chronic respiratory complaints including the chest discomfort in the shortness of breath that he is slowly working to try to improved although it it is a significant limitation in a quality of life issue for him and his family. 10/07/2022 the patient is here for pulmon gonsalo follow-up visit. He has been having hard time lately with increasing shortness of breath. Complains of chest tightness and fatigue. Sometimes hard for him to get to work. At work he does wear a mask when needed. Although he still feels like he is getting exposed to significant amount of in organic dust in his work environment and also in other areas. I do believe the patient has likely more inflammatory changes.. The CT scan of the chest demonstrating interval increase in his airspace disease which is concerning. Will go ahead and treated with some prednisone to see if this helps decrease inflammation and hopefully his symptoms as well. In the meantime, the a he has an appointment in [facility] to further address his pneumoconiosis further. In view of the slight increase in size of his left upper lobe parenchymal process taking view important for additional evaluation. Will even consider re-biopsy of this area. Although, the initial biopsy was and still is painful. The patient also continues uses CPAP every night. CPAP therapy continues to be affecting beneficial. He does use it for more than 4 hours a night. He has been getting supplies readily. Pain control he has been using as needed tramadol and also will try the prednisone to decrease inflammation at this time. 11/07/2022 The patient is here for a pulm onary follow up. The patient feels like it is getting worse. Complains of worsening dyspnea worsening fatigue. Also having worsening left-sided chest discomfort. Based on his last CT scan there was some interval increase in the area of airspace disease. He did take the trial of prednisone but did not see any significant improvement. He does continue with his respiratory therapy and also he has been using the CPAP at nighttime. The CPAP therapy continues to be affecting beneficial. He is scheduled to go to [facility] for 2nd opinion the end of November. At this point would be prudent in view of his worsening symptoms to have him stay out of work until that evaluation. 02/07/2023 the patient is here for pulmonary follow-up visit. Overall he is doing about the same. He is back to work. The patient needs to wear respirator. He is concerned about the worsening density in his lung. He was referred to [facility] [place] will be reviewing the pathology in the radiology and getting back to us. Depending on the findings will likely place him on immunomodulator for period time and then reimage closer to a year from his last CT scan which be in July 2023. we did talk about potentially methotrexate or mycophenolate as potential medications. Will have blood work today to assess hi s blood work prior to starting the medication. The patient continues uses CPAP every night CPAP therapy continues to be affecting beneficial when he does use it for more than 4 hours a night. Also continues with respiratory therapy. 05/09/2023 the patient is here for pulmonary follow-up visit. The patient has been working with respirator and seems to be working well. He is monitoring closely his weight he has had some weight gain that unfortunately is going to affect his respiratory capacity as well. He is looking in to getting involved in a weight loss program. In the meantime we have not heard back from the 2nd opinion on his pathology. Were hoping to get the pathology reading from [facility] in order to start him on immunomodulator therapy. At this point will go ahead and start him on CellCept and we will request those results from [facility] to be provided as soon as possible. The patient's 's also going to be calling [facility] to get those results. The patient is scheduled to undergo a repeat CT scan in July and therefore can see the response to the mycophenolate therapy. The patient will start the therapy on a lower dose and then will request blood work and a month's time. We did already have preliminary laboratory data which is reassuring for him to start the therapy at this time. He also continues uses CPAP. The CPAP therapy continues to be affecting beneficial. Does try to use it 4 hours a night, but has been short. 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 Pulmonary nodules Surgical History History of knee surgery History of splenectomy History of vasectomy Hx of cholecystectomy Family History Mother Embolism Father HTN (hypertension) Partial sight in both eyes Hypercholesteremia Sister Sleep apnea Kidney disease HTN (hypertension) Asthma Arthritis Paternal Grandmother Cancer Social History Alcohol intake: never Patient Tobacco Use Status: Former Tobacco user Review of Systems Const Reports difficulty sleeping, Reports fatigue and Reports weight gain Eyes Denies loss of vision ENT Denies dizziness and Denies hearing loss Card Reports chest pain, Denies claudication, Denies leg edema, Denies lightheadedness, Reports palpitations, Reports dyspnea, Reports dyspnea on exertion and Denies orthopnea Resp Denies cough, Denies excessive phlegm production, Reports pain on inspiration, Reports pain with cough, Reports dyspnea, Reports dyspnea on exertion and Denies wheezing GI Denies abdominal pain, Denies hematochezia, Denies change in bowel habits, Denies change in stool character, Denies heartburn, Denies nausea and Denies vomiting Denies dysuria and Denies urinary frequency Musc Denies arthralgias, Denies muscle weakness, Denies numbness and Denies other (Frequent falls) Skin/Breast Denies nail changes and Denies rash Neuro Denies dizziness, Denies loss of vision, Denies memory loss and Denies numbness Psych Denies depression and Denies memory loss Endo Reports fatigue and Reports palpitations Aller/Immun Denies wheezing Physical Exam Vital Signs: Last Vital Signs Pulse 89 05/09/23 14:35 Pulse Ox 96 05/09/23 14:35 Oxygen Delivery Method Room Air 05/09/23 14:35 BMI result Body Mass Index 34.5 Const General: alert Neck Neck: Yes normal visual inspection, Yes full ROM and Yes no lymphadenopathy Chest Chest palpation & inspection: tenderness rib Resp Auscultation: diminished lung sounds Cardio Rate: regular rate Rhythm: regular rhythm Heart sounds: S1 normal heart sound present and S2 normal heart sound present GI Palpation (GI): Soft to palpation and nontender Auscultation: normal bowel sounds Skin General skin exam: rashes and/or lesions noted Assessment & Plan Assessment & Plan (1) Asthma-COPD overlap syndrome: Code(s): J44.9 - Chronic obstructive pulmonary disease, unspecified (2) Pulmonary nodules: Code(s): R91.8 - Other nonspecific abnormal finding of lung field (3) Pneumoconiosis: Comment: biopsy, reevaluated-second opinion consistent with silicosis Code(s): J64 - Unspecified pneumoconiosis (4) Lung mass: Code(s): R91.8 - Other nonspecific abnormal finding of lung field (5) Dyspnea: Code(s): R06.00 - Dyspnea, unspecified Qualifiers: Dyspnea type: dyspnea on exertion Qualified Code(s): R06.00 - Dyspnea, unspecified (6) Chest pain: Code(s): R07.9 - Chest pain, unspecified Qualifiers: Chest pain type: chest pain on breathing Qualified Code(s): R07.1 - Chest pain on breathing (7) CINTHIA (obstructive sleep apnea): Code(s): G47.33 - Obstructive sleep apnea (adult) (pediatric) Plan Needs to avoid all inorganic dust based on the fact that he already has evidence of interstitial lung disease. He continues to express concern about his work related exposure. Has worsening symptoms. Would benefit from removal of that exposure for until the evaluation from [facility]. Awaiting review of pathology and radiology at the [facility] in [place]. continue APAP to treat his severe CINTHIA, new mask N20 large with Chin strap continue Daliresp, consider stopping Continue Trelegy Continue Gabapentin at night Pain management: toradol as needed, lidoderm patch, gabapentin start Cellcept bloodwork in 3-[address] chest 07/2023 F/U July 2023 Orders: Orders Complete Blood Count Auto Diff 05/09/23 R91.8 - Other nonspecific abnormal finding of lung field Liver Panel 05/09/23 R91.8 - Other nonspecific abnormal finding of lung field Erythrocyte Sedimentation Rate 05/09/23 R91.8 - Other nonspecific abnormal finding of lung field Basic Metabolic Panel 05/09/23 R91.8 - Other nonspecific abnormal finding of lung field Medications: New mycophenolate mofetil 500 mg PO BID 30 days 60 tabs 4RF Refilled tramadol 50 mg PO DAILY PRN 30 tabs 0RF pain 30 days R91.8 - Other nonspecific abnormal finding of lung field Coding Level of Care Code Est Pt Level 4 (03309) Diagnoses Asthma-COPD overlap syndrome J44.9 Pulmonary nodules R91.8 Pneumoconiosis J64 Lung mass R91.8 Dyspnea on exertion R06.00 Dyspnea type: dyspnea on exertion Chest pain on breathing R07.1 Chest pain type: chest pain on breathing CINTHIA (obstructive sleep apnea) G47.33 Time Spent (min) 18
[2023-05-09 14:35] VITALS: PULSE 89; O2SAT 96; BMI 34.5
== END 2023-05-09 15:04 | disposition home or self-care (01) ==
PROVIDERS: PCP Physician Assistant; Visit Provider Hospitalist
DX: J44.9 Chronic obstructive pulmonary disease, unspecified (principal); R91.8 Other nonspecific abnormal finding of lung field; J64 Unspecified pneumoconiosis; R06.00 Dyspnea, unspecified; R07.1 Chest pain on breathing; G47.33 Obstructive sleep apnea (adult) (pediatric)
CPT/HCPCS: 99214

== ENCOUNTER → 2023-05-09 14:14 | Outpatient (BNVA) | payer OTHER, SELFPAY | PROVIDERS: PCP Physician Assistant; Visit Provider Hospitalist | DX: J44.9 Chronic obstructive pulmonary disease, unspecified (principal); R91.8 Other nonspecific abnormal finding of lung field; J64 Unspecified pneumoconiosis; R06.00 Dyspnea, unspecified; R07.1 Chest pain on breathing; G47.33 Obstructive sleep apnea (adult) (pediatric); Z79.899 Other long term (current) drug therapy | CPT/HCPCS: 99212 ==

== ENCOUNTER 2023-06-26 15:38 | Outpatient (REF) | payer OTHER, SELFPAY ==
[2023-06-26 15:47] LABS: MANUAL DIFF FLAG NO
[2023-06-26 16:49] LABS: Basophils Absolute Auto 0.1 X10*3/uL (0.0-0.2); Basophils Percent Auto 0.9 % (0-2); Eosinophils Absolute Auto 0.3 X10*3/uL (0.0-0.4); Eosinophils Percent Auto 2.7 % (0-4); Hematocrit 43.1 % (42.0-52.0); Hemoglobin 15.2 g/dl (14.0-18.0); Imm Gran Abs Auto 0.09 X10*3/uL (0.00-0.03); Imm Gran Pct Auto 0.9 % (0.0-0.4); Lymphocytes Absolute Auto 4.2 X10*3/uL (1.2-4.9); Lymphocytes Percent Auto 39.3 % (20-40); Mean Corpuscular HGB Conc 35.3 g/dl (31.0-36.0); Mean Corpuscular Hemoglobin 28.7 pg (27.0-33.0); Mean Corpuscular Volume 81.5 fL (80.0-98.0); Mean Platelet Volume 10.6 fL (9.4-12.4); Monocytes Absolute Auto 1.5 X10*3/uL (0.1-1.2); Neutrophils Absolute Auto 4.5 x10*3/uL (2.0-8.3); Neutrophils Percent Auto 42.2 % (45-73); Platelet Count 357 X10*3/uL (160-400); Red Blood Count 5.29 X10*6/uL (4.60-5.80); Red Cell Distribution Width 13.2 % (11.0-16.0); White Blood Count 10.6 X10*3/uL (4.8-10.8)
[2023-06-26 16:50] LABS: Alanine Aminotransferase 40 U/L (0-40); Albumin Level 4.3 g/dL (3.5-5.0); Alkaline Phosphatase 104 U/L (39-117); Anion Gap 13 (12-20); Aspartate Amino Transferase 27 U/L (5-37); Bilirubin Direct 0.2 mg/dL (0.0-0.5); Bilirubin Total 0.8 mg/dL (0.0-1.0); Blood Urea Nitrogen 18 mg/dL (9-16); Calcium 9.3 mg/dL (8.4-10.2); Carbon Dioxide 25 mmol/L (22-29); Chloride 109 mmol/L (96-108); Estimated Glomerular Filt Rate > 60; Glucose Random 92 mg/dL (60-115); Potassium 3.8 mmol/L (3.3-5.1); Sodium 143 mmol/L (135-145); Total Protein 7.9 g/dL (6.5-8.0)
[2023-06-26 17:32] LABS: Erythrocyte Sedimentation Rate 7 MM/HR (0-15)
== END 2023-06-26 15:39 | disposition home or self-care (01) ==
LOC: HO.LAB 15:38
PROVIDERS: Visit Provider Hospitalist
DX: R91.8 Other nonspecific abnormal finding of lung field (principal)
CPT/HCPCS: 36415; 80048; 80076; 85025; 85652

== ENCOUNTER 2023-06-30 14:44 | Outpatient (AMB) | payer OTHER, SELFPAY ==
[2023-06-30 14:46] VITALS: BP 158/90; BMI 34.3
--- NOTE | 2023-06-30 14:46 | A.OFFPC_ITS ---
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 Required: No Accompanied by: Spouse Allergies No Known Allergies Allergy (Verified 06/30/23 15:25) Medication List - Last Reconciled 06/30/23 by Regina England MD albuterol sulfate 90 mcg/actuation (ProAir HFA) 2 inhalations inhalation Q6H PRN 30 days amlodipine 2.5 mg PO DAILY 90 days doxycycline hyclate 100 mg PO BID 10 days fluticasone propionate 50 mcg/actuation 0 mcg intranasal uhsnilqdylr-dqjhhcash-ewysjypa 100-62.5-25 mcg (Trelegy Ellipta) 1 inh inhalation DAILY 30 days gabapentin 600 mg (2 x 300 mg) PO BEDTIME lidocaine 5% (Lidoderm) 1 patch topical DAILY 30 days loratadine 10 mg PO DAILY metoprolol tartrate 25 mg PO BID mycophenolate mofetil 500 mg PO BID 30 days prednisone PO daily; Take 2 tabs daily x 5 days, then 1 tablet daily x 5 days 10 days roflumilast (Daliresp) 500 mcg PO DAILY tamsulosin 0.4 mg PO DAILY tramadol 50 mg PO DAILY PRN 30 days Tobacco use date assessed: 06/30/23 Dental Screening Dental Screen Date: 06/30/23 Did you have a dental visit in the last 12 months?: Yes Did you have a dental problem in the last 6 months where you did not have access to dental care?: No Was dental information given to patient?: Patient has dentist HPI HPI Comments History of Present Illness Details This is a 57-year-old male with hypertension, obstructive sleep apnea on CPAP, asthma-COPD overlap syndrome and silicosis that comes today to establish care. Blood pressure elevated and I will increase amlodipine from 2.5 mg to 5 mg. Blood pressure will be recheck in 3 weeks by nurse navigator. He is compliant with CPAP machine and feels markedly improved. On Trelegy for asthma-COPD overlap syndrome and has been well control. Has silicosis from biopsy and follows with pulmonology here and in [place]. Accompanied by . 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 Pulmonary nodules Surgical History History of vasectomy Hx of cholecystectomy History of splenectomy History of knee surgery Family History Mother Embolism Father HTN (hypertension) Partial sight in both eyes Hypercholesteremia Sister Sleep apnea Kidney disease HTN (hypertension) Asthma Arthritis Paternal Grandmother Cancer Social History Housing: House Alcohol intake: never Patient Tobacco Use Status: Former Tobacco user Tobacco use type: Cigarette e-Cigarette/Vaping Use: Never Used Second Hand Smoke Exposure: No service: No Current occupational status: employed Current occupational exposures/hazards: No Cognitive needs: No Hearing needs: No Vision needs: Yes Questionnaire PHQ-9 Over the last 2 weeks, how often have you been bothered by any of the following problems? 1. Little interest or pleasure in doing things: not at all 2. Feeling down, depressed, or hopeless: not at all 3. Trouble falling or staying asleep, or sleeping too much: not at all 4. Feeling tired or having little energy: several days 5. Poor appetite or overeating: not at all 6. Feeling bad about yourself - or that you are a failure or have let yourself or your family down: not at all 7. Trouble concentrating on things, such as reading the newspaper or watching television: not at all 8. Moving or speaking so slowly that other people could have noticed. Or the opposite - being so fidgety or restless that you have been moving around a lot more than usual: not at all 9. Thoughts that you would be better off or of hurting yourself in some way: not at all Total score: 1 Depression Screening Interpretation: Negative Depression Screening Done: Yes 11585 - PHQ-9 Billing: Yes Source: Developed by Drs. Cuco Grullon, Angie Gonzalez, Mark Davis and colleagues, with an educational agata from [employer] Thrive Questionnaire Date Thrive assessed: 06/30/23 I am a: Patient What is your living situation today?: I have a steady place to live Within the past 12 months, did the food you bought not last and you didn't have the money to get more?: Never true Within the past 12 months, did you worry whether your food would run out before you got money to buy more?: Never true Do you have trouble paying for medicines?: No Do you have trouble getting transportation to medical appointments?: No Do you have trouble paying your heating and electricity bill?: No Do you have trouble taking care of your child, family member or friend?: No Do you have trouble with day-to-day activities such as bathing, preparing meals, shopping, managing finances, etc.?: No Are you currently unemployed and looking for a job?: No Are you interested in more education?: No Please select the resources that you would like help with: None Currently or been in a relationship where the following occur: no concerns reported THRIVE Score: 0 AUDIT C Alcohol Use Questionnaire (AUDIT-C) 1. How often do you have a drink containing alcohol?: Never Total Score: 0 GUILHERME-7 AMB Questionnaire GUILHERME-7 Date GUILHERME - 7 assessed: 06/30/23 Feeling nervous, anxious, or on edge: 2 = More than half the days Not being able to stop or control worryin = Several days Worrying too much about different things: 3 = Nearly every day Trouble relaxin = Several days Being so restless that it is hard to sit still: 3 = Nearly every day Becoming easily annoyed or irritable: 1 = Several days Feeling afraid as if something awful might happen: 1 = Several days Total GUILHERME-7 score (0-4 normal; 5-9 mild; 10-14 moderate; 15-21 severe): 12 Source: Developed by Drs. Cuco Grullon, Angie Gonzalez, Mark Davis and colleagues, with an educational agata from [employer] GUILHERME-7 Assessment Billing GUILHERME-7 Assessment Tool: GUILHERME-7 Assessment 98436 Review of Systems Const All systems reviewed & are unremarkable except as noted in HPI and below Eyes Reports no additional complaints, Denies change in vision and Denies other vis ual disturbances Card Denies chest pain at rest, Denies chest pain with activity, Denies edema, Denies irregular heart rhythm, Denies claudication, Denies dyspnea, Denies dyspnea on exertion, Denies orthopnea, Denies paroxysmal nocturnal dyspnea and Denies slow heart rate Resp Denies cough, Denies dyspnea and Denies dyspnea on exertion GI Denies abdominal pain, Denies change in bowel habits, Denies excessive flatus, Denies nausea and Denies vomiting Denies urinary hesitancy, Denies urinary incontinence and Denies urinary urgency Musc Denies abnormal gait, Denies atrophy, Denies deformity and Denies limited range of motion Skin/Breast Denies bleeding lesions, Denies changing lesions and Denies rash Neuro Denies abnormal gait, Denies behavioral changes and Denies lack of coordination Psych Denies behavioral changes Physical exam (Primary Care) Vital Signs: Last Vital Signs BP 158/90 H 06/30/23 14:46 BMI result Body Mass Index 34.3 Tobacco/Smoking Status: Tobacco use Status Tobacco use date assessed 06/30/23 06/30/23 14:58 Patient Tobacco Use Status Former Tobacco user 06/30/23 14:58 Tobacco use type Cigarette 06/30/23 14:58 e-Cigarette/Vaping Use Never Used 06/30/23 14:58 PHQ-9: PHQ-9 Score PHQ-9: Total score 1 06/30/23 14:58 Depression Screening Interpretation: Negative Thrive Assessment: Date of Thrive Assessment Date Thrive assessed 06/30/23 06/30/23 14:58 Currently or been in a relationship where the following occur: no concerns reported Eyes General: appearance normal, both eyes and all related structures Eyelids: Yes eyelids normal Conjunctivae: conjunctivae normal Neck Neck: Yes normal visual inspection and Yes supple Resp Effort & Inspection: normal respiratory effort Auscultation: clear to auscultation bilaterally Cardio Jugular venous distension: no JVD Rate: regular rate Rhythm: regular rhythm Heart sounds: S1 normal heart sound present and S2 normal heart sound present Extrem General: Yes full ROM Assessment and Plan Assessment & Plan (1) Essential hypertension: Code(s): I10 - Essential (primary) hypertension Plan: Increase amlodipine to 5 mg. Recheck blood pressure in 3 weeks by nurse navigator. Blood pressure goal is equal or less than 130/80. (2) CINTHIA (obstructive sleep apnea): Code(s): G47.33 - Obstructive sleep apnea (adult) (pediatric) Plan: Continue CPAP machine. 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 Avoid inorganic dust. (4) Asthma-COPD overlap syndrome: Code(s): J44.9 - Chronic obstructive pulmonary disease, unspecified Plan: Continue Trelegy. Use rescue inhaler as needed. Orders: Orders Comprehensive [place]. Panel Fast 4 Months I10 - Essential (primary) hypertension Lipid Panel 4 Months I10 - Essential (primary) hypertension Medications: New amlodipine 5 mg PO DAILY 90 days 90 tabs 1RF Discontinued amlodipine Discontinued Reason: Patient Completed Course 2.5 mg PO DAILY 90 days 90 tabs 3RF I10 - Essential (primary) hypertension Coding Level of Care Code New Pt Level 4 (45800) Diagnoses Essential hypertension I10 CINTHIA (obstructive sleep apnea) G47.33 Silicosis J62.8 Asthma-COPD overlap syndrome J44.9 Additional Codes GUILHERME-7 Assessment Billing - GUILHERME-7 Assessment Tool: GULIHERME-7 Assessment 24583 ([id number]) Time Spent (min) 23
== END 2023-06-30 15:44 | disposition home or self-care (01) ==
PROVIDERS: PCP Physician Assistant; Visit Provider Internal Medicine
DX: I10 Essential (primary) hypertension (principal); G47.33 Obstructive sleep apnea (adult) (pediatric); J62.8 Pneumoconiosis due to other dust containing silica; J44.9 Chronic obstructive pulmonary disease, unspecified
CPT/HCPCS: 99204

== ENCOUNTER 2023-07-28 13:56 | Outpatient (AMB) | payer OTHER, SELFPAY ==
--- NOTE | 2023-07-28 14:01 | MHC.OFFVIS ---
Intake Vital Signs 07/28/23 14:02 Height 5 ft 5 in Weight 206 lb 2.115 oz BMI 34.3 Pulse 89 Pulse Source Pulse Oximeter Pulse Oximetry (%) 98 Oxygen Delivery Method Room Air Intake Visit Reasons: asthma High Pressure Firer Required: No Allergies No Known Allergies Allergy (Verified 07/28/23 14:02) HPI HPI Comments History of Present Illness Details The patient is a 57-year-old gentleman with a known history of nodular densities. Apparently back in 2017 he had a shoulder injury and he went to get an x-ray. His x-ray was abnormal with the an abnormal finding on the lung field. Therefore he underwent a CT scan of the chest demonstrating a masslike density in the left upper lobe area. He also had other densities. He had a PET scan apparently was positive in had a biopsy at that time. CT guided biopsy demonstrated that he had some inflammation although nondiagnostic. Then everything was left alone until again 2018 when he was not feeling well. He was having some malaise symptoms along with not feeling well. Denied any respiratory symptoms the time. He underwent a repeat imaging study and subsequently repeat biopsy demonstrating now giant cell allergic reaction along with what appears to be a foreign body reaction. The patient all the really was referred to a thoracic surgery where he had a wedge resection. 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 Also to note that hypersensitivity panel was significantly elevated for a lot of mold. His microbiology from the wedge resections are still pending no growth today. No evidence of any acid-fast disease. He is tolerating the Breo inhaler and this appears to be helping. Denies any productive coughing or significant wheezing. He does have a dry cough at times and times he can not be barking nature. He does still get some discomfort to the left side does with the area that he had a surgery in addition to the fact that he does some heavy lifting at work. We did review his CT scan from November 2018 in addition to his CT scan from May 2019. The left upper lobe masslike densities pre similar in anything possibly little larger in size. The other nodular densities phone in the lingula and also in the left lower lobe have appear to be improved. Still has a emphysematous changes the unilateral side. Plan to repeat the CT scan sometime in February and at that time depending on the findings with decide to potentially do a bronchoscopy. We did review all the cultures from [facility] in all were negative for any mycobacterial infections or fungal infections. 05/24/2022 the patient is here for a pulmonary follow-up visit. He did start using the CPAP. The CPAP therapy has been affecting beneficial. He has been tolerating the BiPAP. However, he was not tolerating the mask that he did get from the [facility]. He did better with the mask that he had from the sleep study. Therefore I did request that which was stated N20 large mask. he does need to get a chinstrap to minimize under dryness of the mouth. The pain continues to be initial. 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 He knows to minimize the medication if possible. He also uses Lidoderm patch that to help him really get some relief as well. He has been using his respiratory medications in addition to the Daliresp. he will continue to struggle with his chronic respiratory complaints including the chest discomfort in the shortness of breath that he is slowly working to try to improved although it it is a significant limitation in a quality of life issue for him and his family. 10/07/2022 the patient is here for pulmonary follow-up visit. He has been having hard time lately with increasing shortness of breath. Complains of chest tightness and fatigue. Sometimes hard for him to get to work. At work he does wear a mask when needed. Although he still feels like he is getting exposed to significant amount of in organic dust in his work environment and also in other areas. I do believe the patient has likely more inflammatory changes.. The CT scan of the chest demonstrating interval increase in his airspace disease which is concerning. Will go ahead and treated with some prednisone to see if this helps decrease inflammation and hopefully his symptoms as well. 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 In view of the slight increase in size of his left upper lobe parenchymal process taking view important for additional evaluation. Will even consider re-biopsy of this area. Although, the initial biopsy was and still is painful. The patient also continues uses CPAP every night. CPAP therapy continues to be affecting beneficial. He does use it for more than 4 hours a night. He has been getting supplies readily. Pain control he has been using as needed tramadol and also will try the prednisone to decrease inflammation at this time. 11/07/2022 The patient is here for a pulmonary follow up. The patient feels like it is getting worse. Complains of worsening dyspnea worsening fatigue. Also having worsening left-sided chest discomfort. Based on his last CT scan there was some interval increase in the area of airspace disease. He did take the trial of prednisone but did not see any significant improvement. He does continue with his respiratory therapy and also he has been using the CPAP at nighttime. The CPAP therapy continues to be affecting beneficial. He is scheduled to go to [facility] for 2nd opinion the end of November. At this point would be prudent in view of his worsening symptoms to have him stay out of work until that evaluation. 02/07/2023 the patient is here for pulmonary follow-up visit. Overall he is doing about the same. He is back to work. The patient needs to wear respirator. He is concerned about the worsening density in his lung. He was referred to [facility] [place] will be reviewing the pathology in the radiology and getting back to us. Depending on the findings will likely place him on immunomodulator for period time and then reimage closer to a year from his last CT scan which be in July 2023. we did talk about potentially methotrexate or mycophenolate as potential medications. Will have blood work today to assess his blood work prior to starting the medication. The patient continues uses CPAP every night CPAP therapy continues to be affecting beneficial when he does use it for more than 4 hours a night. Also continues with respiratory therapy. 05/09/2023 the patient is here for pulmonary follow-up visit. The patient has been working with respirator and seems to be working well. He is monitoring closely his weight he has had some weight gain that unfortunately is going to affect his respiratory capacity as well. He is looking in to getting involved in a weight loss program. In the meantime we have not heard back from the 2nd opinion on his pathology. Were hoping to get the pathology reading from [facility] in order to start him on immunomodulator therapy. At this point will go ahead and start him on CellCept and we will request those results from [facility] to be provided as soon as possible. The patient's 's also going to be calling [facility] to get those results. The patient is scheduled to undergo a repeat CT scan in July and therefore can see the response to the mycophenolate therapy. The patient will start the therapy on a lower dose and then will request blood work and a month's time. We did already have preliminary laboratory data which is reassuring for him to start the therapy at this time. He also continues uses CPAP. The CPAP therapy continues to be affecting beneficial. Does try to use it 4 hours a night, but has been short. 07/28/2023 the patient is here for a pulmonary follow-up visit. He continues to work. He has a hard time wearing the mask this is hard for him to breathe. But he understands that he can not be exposed to further inorganic does not through his lungs. Had been on the mycophenolate. But then started developing adverse symptoms. Hard to know if those from the medication. The plan was for him to stop the medication and then to start on a daily basis with 1 tablet. Then will kind of monitoring closely. However, the patient was not able to start the mycophenolate as of yet. Therefore he really has not taken it for too long. Will plan to do a CT scan after treatment with the mycophenolate. For that reason will go ahead and spoke the CT scan for couple months in order for him tolerate the medicine then be able to check the CT scan. If the patient develops any worsening symptoms though he is calm we can try to get the CT scan sooner. In addition to that it appears that [facility] finally received the pathology slides from [facility]. The [place] [facility] will be looking at the slides and try to further address if there is any inorganic dust that is contributing to the underlying interstitial lung disease. He continues pleuritic pain the site of the surgery. Patient has been responding partially to tramadol as needed. Patient has also been using his CPAP. CPAP therapy continues to be affecting beneficial. He does try to use it 4 hours a night. His AHI is down to 0.3. therefore, will continue with the current CPAP therapy. 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 Pulmonary nodules Surgical History History of vasectomy Hx of cholecystectomy History of splenectomy History of knee surgery Family History Mother Embolism Father HTN (hypertension) Partial sight in both eyes Hypercholesteremia Sister Sleep apnea Kidney disease HTN (hypertension) Asthma Arthritis Paternal Grandmother Cancer Social History Housing: House Alcohol intake: never Patient Tobacco Use Status: Former Tobacco user Tobacco use type: Cigarette e-Cigarette/Vaping Use: Never Used Second Hand Smoke Exposure: No service: No Current occupational status: employed Current occupational exposures/hazards: No Cognitive needs: No Hearing needs: No Vision needs: Yes Review of Systems Const Reports difficulty sleeping, Reports fatigue and Reports weight gain Eyes Denies loss of vision ENT Denies dizziness and Denies hearing loss Card Reports chest pain, Denies claudication, Denies leg edema, Denies lightheadedness, Reports palpitations, Reports dyspnea, Reports dyspnea on exertion and Denies orthopnea Resp Denies cough, Denies excessive phlegm production, Reports pain on inspiration, Reports pain with cough, Reports dyspnea, Reports dyspnea on exertion and Denies wheezing GI Denies abdominal pain, Denies hematochezia, Denies change in bowel habits, Denies change in stool character, Denies heartburn, Denies nausea and Denies vomiting Denies dysuria and Denies urinary frequency Musc Denies arthralgias, Denies muscle weakness, Denies numbness and Denies other (Frequent falls) Skin/Breast Denies nail changes and Denies rash Neuro Denies dizziness, Denies loss of vision, Denies memory loss and Denies numbness Psych Denies depression and Denies memory loss Endo Reports fatigue and Reports palpitations Aller/Immun Denies wheezing Physical Exam Vital Signs: Last Vital Signs Pulse 89 07/28/23 14:02 Pulse Ox 98 07/28/23 14:02 Oxygen Delivery Method Room Air 07/28/23 14:02 BMI result Body Mass Index 34.3 Const General: alert Neck Neck: Yes normal visual inspection, Yes full ROM and Yes no lymphadenopathy Chest Chest palpation & inspection: tenderness rib Resp Auscultation: diminished lung sounds Cardio Rate: regular rate Rhythm: regular rhythm Heart sounds: S1 normal heart sound present and S2 normal heart sound present GI Palpation (GI): Soft to palpation and nontender Auscultation: normal bowel sounds Skin General skin exam: rashes and/or lesions noted Assessment & Plan Assessment & Plan (1) Asthma-COPD overlap syndrome: Code(s): J44.9 - Chronic obstructive pulmonary disease, unspecified (2) Pulmonary nodules: Code(s): R91.8 - Other nonspecific abnormal finding of lung field (3) Pneumoconiosis: Code(s): J64 - Unspecified pneumoconiosis (4) Lung mass: Code(s): R91.8 - Other nonspecific abnormal finding of lung field (5) Dyspnea: Code(s): R06.00 - Dyspnea, unspecified Qualifiers: Dyspnea type: dyspnea on exertion Qualified Code(s): R06.00 - Dyspnea, unspecified (6) Chest pain: Code(s): R07.9 - Chest pain, unspecified Qualifiers: Chest pain type: chest pain on breathing Qualified Code(s): R07.1 - Chest pain on breathing (7) CINTHIA (obstructive sleep apnea): Code(s): G47.33 - Obstructive sleep apnea (adult) (pediatric) Plan Needs to avoid all inorganic dust based on the fact that he already has evidence of interstitial lung disease. He continues to express concern about his work related exposure. Has worsening symptoms. Would benefit from removal of that exposure for until the evaluation from [facility]. Awaiting review of pathology and radiology at the [facility] in [place]. continue APAP to treat his severe CINTHIA, new mask N20 large with Chin strap continue Daliresp, consider stopping Continue Trelegy Continue Gabapentin at night Pain management: toradol as needed, lidoderm patch, gabapentin restart Cellcept repeat CT chest 09/2023 F/U September 2023 Orders: Orders CT chest wo IV con 09/27/23 R91.8 - Other nonspecific abnormal finding of lung field Medications: Refilled tramadol 50 mg PO DAILY 30 days PRN 30 tabs 0RF pain R91.8 - Other nonspecific abnormal finding of lung field Coding Level of Care Code Est Pt Level 5 (36468) Diagnoses Asthma-COPD overlap syndrome J44.9 Pulmonary nodules R91.8 Pneumoconiosis J64 Lung mass R91.8 Dyspnea on exertion R06.00 Dyspnea type: dyspnea on exertion Chest pain on breathing R07.1 Chest pain type: chest pain on breathing CINTHIA (obstructive sleep apnea) G47.33 Time Spent (min) 35
[2023-07-28 14:02] VITALS: PULSE 89; O2SAT 98; BMI 34.3
== END 2023-07-28 14:38 | disposition home or self-care (01) ==
PROVIDERS: PCP Physician Assistant; Visit Provider Hospitalist
DX: J44.9 Chronic obstructive pulmonary disease, unspecified (principal); R91.8 Other nonspecific abnormal finding of lung field; J64 Unspecified pneumoconiosis; R07.1 Chest pain on breathing; G47.33 Obstructive sleep apnea (adult) (pediatric)
CPT/HCPCS: 99214

== ENCOUNTER → 2023-07-28 13:56 | Outpatient (BNVA) | payer OTHER, SELFPAY | PROVIDERS: PCP Physician Assistant; Visit Provider Hospitalist ==

== ENCOUNTER 2023-09-15 15:21 | Outpatient (REF) | payer OTHER, SELFPAY ==
--- NOTE | ~2023-09-15 | CT_ITS ---
EXAMINATION: CT CHEST WITHOUT CONTRAST CLINICAL INFORMATION: Follow-up nodules COMPARISON: 08/15/2022, 09/17/2021, 03/02/2020, 06/01/2019 TECHNIQUE: Multidetector volumetric CT imaging of the chest was done. Axial MIP volume rendering provided. Sagittal and coronal reformatted images were obtained. This CT examination was performed using dose optimization techniques as appropriate, variously including the following: *Automated exposure control *Adjustment of mA and/or kV according to patient size (this includes techniques or standardized protocols for targeted exams where dose is matched to indication/reason for exam; i.e. extremities or head) *Use of iterative reconstruction technique DLP: 176 mGy-cm FINDINGS: LUNGS: Left upper lobe apical consolidation versus scarring, masslike in appearance measures 4.2 x 2.8 cm, unchanged. Moderate background emphysema. Postsurgical changes in the left lower lobe with left lung base rounded atelectasis, unchanged. Left upper lobe lingular irregular opacity is unchanged since 2019. There is increased solid component in mixed cystic and solid region in the anterior medial left upper lobe (7:161) measuring 1.6 cm, which may reflect mild bronchial wall thickening in this region, however an evolving lesion cannot be excluded and recommend attention on follow-up. Central airways are patent. Mosaic attenuation, similar to prior studies. PLEURA: No pleural effusion. MEDIASTINUM: Mild cardiomegaly, unchanged. Aorta and pulmonary artery are normal in caliber. No mediastinal adenopathy. Lack of IV contrast limits evaluation for hilar adenopathy. CORONARY ARTERY CALCIFICATION: No coronary artery calcification appreciated. CHEST WALL/AXILLA: No axillary or internal mammary lymphadenopathy. UPPER ABDOMEN: Status post cholecystectomy. OSSEOUS STRUCTURES: Unremarkable. CT/CT chest wo IV con IMPRESSION: * Left upper lobe apical consolidation versus scarring, masslike in appearance measures 4.2 x 2.8 cm, unchanged since 2019. * Left upper lobe lingular irregular opacity is unchanged since 2020. There is increased solid component in mixed cystic and solid region in the anterior medial left upper lobe which may reflect mild bronchial wall thickening in this region, however an evolving lesion cannot be excluded and recommend attention on follow-up. According to the UPDATED 2017 Fleischner Society recommendations, the advised followup imaging for a single part solid nodule measuring 6 mm or greater is: CT at 3-6 months to confirm persistence. If unchanged and solid component remains <6 mm, annual CT should be performed for 5 years. This exam was submitted to the interpreting radiologist for interpretation on 10/28/2023 9:56 AM.
== END 2023-09-15 15:22 | disposition home or self-care (01) ==
LOC: HO.CT 15:21
PROVIDERS: PCP Internal Medicine; Visit Provider Hospitalist
DX: R91.8 Other nonspecific abnormal finding of lung field (principal)
CPT/HCPCS: 71250

== ENCOUNTER 2023-10-13 15:19 | Outpatient (AMB) | payer OTHER, SELFPAY ==
[2023-10-13 15:27] VITALS: PULSE 84; O2SAT 97; BMI 34.9
--- NOTE | 2023-10-13 15:27 | MHC.OFFVIS ---
Vital Signs 10/13/23 15:27 Height 5 ft 5 in Weight 210 lb BMI 34.9 Pulse 84 Pulse Source Pulse Oximeter Pulse Oximetry (%) 97 Oxygen Delivery Method Room Air Intake Visit Reasons: Asthma Medicare Nurse Required: No Allergies No Known Allergies Allergy (Verified 10/13/23 15:29) HPI Comments Details: The patient is a 58-year-old gentleman with a known history of nodular densities. Apparently back in 2017 he had a shoulder injury and he went to get an x-ray. His x-ray was abnormal with the an abnormal finding on the lung field. Therefore he underwent a CT scan of the chest demonstrating a masslike density in the left upper lobe area. He also had other densities. He had a PET scan apparently was positive in had a biopsy at that time. CT guided biopsy demonstrated that he had some inflammation although nondiagnostic. Then everything was left alone until again 2018 when he was not feeling well. He was having some malaise symptoms along with not feeling well. Denied any respiratory symptoms the time. He underwent a repeat imaging study and subsequently repeat biopsy demonstrating now giant cell allergic reaction along with what appears to be a foreign body reaction. The patient all the really was referred to a thoracic surgery where he had a wedge resection. 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 Also to note that hypersensitivity panel was significantly elevated for a lot of mold. His microbiology from the wedge resections are still pending no growth today. No evidence of any acid-fast disease. He is tolerating the Breo inhaler and this appears to be helping. Denies any productive coughing or significant wheezing. He does have a dry cough at times and times he can not be barking nature. He does still get some discomfort to the left side does with the area that he had a surgery in addition to the fact that he does some heavy lifting at work. We did review his CT scan from November 2018 in addition to his CT scan from May 2019. The left upper lobe masslike densities pre similar in anything possibly little larger in size. The other nodular densities phone in the lingula and also in the left lower lobe have appear to be improved. Still has a emphysematous changes the unilateral side. Plan to repeat the CT scan sometime in February and at that time depending on the findings with decide to potentially do a bronchoscopy. We did review all the cultures from [facility] in all were negative for any mycobacterial infections or fungal infections. 05/24/2022 the patient is here for a pulmonary follow-up visit. He did start using the CPAP. The CPAP therapy has been affecting beneficial. He has been tolerating the BiPAP. However, he was not tolerating the mask that he did get from the [employer]. He did better with the mask that he had from the sleep study. Therefore I did request that which was stated N20 large mask. he does need to get a chinstrap to minimize under dryness of the mouth. The pain continues to be initial. 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 He knows to minimize the medication if possible. He also uses Lidoderm patch that to help him really get some relief as well. He has been using his respiratory medications in addition to the Daliresp. he will continue to struggle with his chronic respiratory complaints including the chest discomfort in the shortness of breath that he is slowly working to try to improved although it it is a significant limitation in a quality of life issue for him and his family. 10/07/2022 the patient is here for pulmonary follow-up visit. He has been having hard time lately with increasing shortness of breath. Complains of chest tightness and fatigue. Sometimes hard for him to get to work. At work he does wear a mask when needed. Although he still feels like he is getting exposed to significant amount of in organic dust in his work environment and also in other areas. I do believe the patient has likely more inflammatory changes.. The CT scan of the chest demonstrating interval increase in his airspace disease which is concerning. Will go ahead and treated with some prednisone to see if this helps decrease inflammation and hopefully his symptoms as well. 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 In view of the slight increase in size of his left upper lobe parenchymal process taking view important for additional evaluation. Will even consider re-biopsy of this area. Although, the initial biopsy was and still is painful. The patient also continues uses CPAP every night. CPAP therapy continues to be affecting beneficial. He does use it for more than 4 hours a night. He has been getting supplies readily. Pain control he has been using as needed tramadol and also will try the prednisone to decrease inflammation at this time. 11/07/2022 The patient is here for a pulmonary follow up. The patient feels like it is getting worse. Complains of worsening dyspnea worsening fatigue. Also having worsening left-sided chest discomfort. Based on his last CT scan there was some interval increase in the area of airspace disease. He did take the trial of prednisone but did not see any significant improvement. He does continue with his respiratory therapy and also he has been using the CPAP at nighttime. The CPAP therapy continues to be affecting beneficial. He is scheduled to go to [place] for 2nd opinion the end of November. At this point would be prudent in view of his worsening symptoms to have him stay out of work until that evaluation. 02/07/2023 the patient is here for pulmonary follow-up visit. Overall he is doing about the same. He is back to work. The patient needs to wear respirator. He is concerned about the worsening density in his lung. He was referred to [place] will be reviewing the pathology in the radiology and getting back to us. Depending on the findings will likely place him on immunomodulator for period time and then reimage closer to a year from his last CT scan which be in July 2023. we did talk about potentially methotrexate or mycophenolate as potential medications. Will have blood work today to assess his blood work prior to starting the medication. The patient continues uses CPAP every night CPAP therapy continues to be affecting beneficial when he does use it for more than 4 hours a night. Also continues with respiratory therapy. 05/09/2023 the patient is here for pulmonary follow-up visit. The patient has been working with respirator and seems to be working well. He is monitoring closely his weight he has had some weight gain that unfortunately is going to affect his respiratory capacity as well. He is looking in to getting involved in a weight loss program. In the meantime we have not heard back from the 2nd opinion on his pathology. Were hoping to get the pathology reading from [facility] in order to start him on immunomodulator therapy. At this point will go ahead and start him on CellCept and we will request those results from [place] to be provided as soon as possible. The patient's 's also going to be calling [place] to get those results. The patient is scheduled to undergo a repeat CT scan in July and therefore can see the response to the mycophenolate therapy. The patient will start the therapy on a lower dose and then will request blood work and a month's time. We did already have preliminary laboratory data which is reassuring for him to start the therapy at this time. He also continues uses CPAP. The CPAP therapy continues to be affecting beneficial. Does try to use it 4 hours a night, but has been short. 07/28/2023 the patient is here for a pulmonary follow-up visit. He continues to work. He has a hard time wearing the mask this is hard for him to breathe. But he understands that he can not be exposed to further inorganic does not through his lungs. Had been on the mycophenolate. But then started developing adverse symptoms. Hard to know if those from the medication. The plan was for him to stop the medication and then to start on a daily basis with 1 tablet. Then will kind of monitoring closely. However, the patient was not able to start the mycophenolate as of yet. Therefore he really has not taken it for too long. Will plan to do a CT scan after treatment with the mycophenolate. For that reason will go ahead and spoke the CT scan for couple months in order for him tolerate the medicine then be able to check the CT scan. If the patient develops any worsening symptoms though he is calm we can try to get the CT scan sooner. In addition to that it appears that [facility] finally received the pathology slides from [facility]. The [facility] will be looking at the slides and try to further address if there is any inorganic dust that is contributing to the underlying interstitial lung disease. He continues pleuritic pain the site of the surgery. Patient has been responding partially to tramadol as needed. Patient has also been using his CPAP. CPAP therapy continues to be affecting beneficial. He does try to use it 4 hours a night. His AHI is down to 0.3. therefore, will continue with the current CPAP therapy. 10/13/2023 the patient is here for a pulmonary follow-up visit. He continues to be pretty symptomatic. He has been on the mycophenolate. Initially he was started on 5 mg twice a day. However, he was having significant adverse effects from the medication and stopped it. During the last visit back in July we were able to restarted but keep him on a 500 mg dose daily. He did have a repeat CT scan of the chest which I personally reviewed with him and his . It appears that the masslike density in the left upper lobe is the same in the other nodular densities are also the same. Possibly some slight improvement in the left base. Although is not been officially read as of yet. At least is reassuring that does not appear to be getting worse unlike the previous CT scan. I do believe that the dose is too low we have to increase it. Will go ahead increase to 500 mg twice a day for 1 month and then subsequently increase it by 5 mg every month to a maximal g a day. Of which point we can request a repeat CT scan to see if there is any further degree of decreasing this mask. However, the patient continues to have significant adverse effects from the medication is going to be hard for him to function. We did talk about alternatives including other immunomodulator therapy to replace the mycophenolate in view of the adverse effects. However, it would require us to start beginning and also has his own pulmonary toxicities and other adverse effects that around them not encounter. I do hope that as he continues the medication he can develop tolerance. Will go and request blood work to make sure that there was no abnormalities to contraindicate increasing medication. Therefore we continue with the FMLA papers he can take a few days also specially if the drowsiness significant. If it becomes persistent then he may need to looking to potential disability in view of his ongoing chronic progressive disease. The patient appears to have significant limitations due to his ongoing comorbidities. He continues uses CPAP every night CPAP therapy continues to be affecting beneficial. He continues with respiratory therapy as prescribed. He has been very adherent. He still struggling with the postthoracotomy syndrome pain and the pain from the mask and does require pain medications as needed. I did speak to the occupational clinic in [place]. pathology did review the surgical slides. His pathology is really unclear although they definitely did not see any evidence of any severe kyphosis. Although my suspicion is that he does have some underlying worsening of his ongoing disease due to further inorganic dust exposure while at work. I do believe that the exposure is going to continue worsening his respiratory condition. Therefore, this point will go ahead and increase the mycophenolate knowing that he may develop worsening fatigue and it may decrease his functional capacity throughout the day with the hope that we can stop the progression of this masslike density from further irreversible damage in his lung. 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 Pulmonary nodules Surgical History History of vasectomy Hx of cholecystectomy History of splenectomy History of knee surgery Family History Mother Embolism Father HTN (hypertension) Partial sight in both eyes Hypercholesteremia Sister Sleep apnea Kidney disease HTN (hypertension) Asthma Arthritis Paternal Grandmother Cancer Social History Housing: House Alcohol intake: never Patient Tobacco Use Status: Former Tobacco user Tobacco use type: Cigarette e-Cigarette/Vaping Use: Never Used Second Hand Smoke Exposure: No service: No Current occupational status: employed Current occupational exposures/hazards: No Cognitive needs: No Hearing needs: No Vision needs: Yes Physical Exam Vital Signs: Last Vital Signs Pulse 84 10/13/23 15:27 Pulse Ox 97 10/13/23 15:27 Oxygen Delivery Method Room Air 10/13/23 15:27 BMI result Body Mass Index 34.9 Assessment & Plan Assessment & Plan (1) Lung mass: Code(s): R91.8 - Other nonspecific abnormal finding of lung field Category: Medical (2) Dyspnea: Code(s): R06.00 - Dyspnea, unspecified Category: Medical Qualifiers: Dyspnea type: dyspnea on exertion Qualified Code(s): R06.00 - Dyspnea, unspecified (3) Chest pain: Code(s): R07.9 - Chest pain, unspecified Category: Medical Qualifiers: Chest pain type: chest pain on breathing Qualified Code(s): R07.1 - Chest pain on breathing (4) CINTHIA (obstructive sleep apnea): Code(s): G47.33 - Obstructive sleep apnea (adult) (pediatric) Category: Medical (5) Chronic fatigue: Code(s): R53.82 - Chronic fatigue, unspecified Category: Medical Plan Needs to avoid all inorganic dust based on the fact that he already has evidence of interstitial lung disease. Awaiting formal review of pathology and radiology at the [facility] in [place]. We requested a report continue APAP to treat his severe CINTHIA, new mask N20 large with Chin strap continue Daliresp, consider stopping Continue Trelegy Continue Gabapentin at night Pain management: toradol as needed, lidoderm patch, gabapentin increase Cellcept 500mg BID, then 1000mg/500mg, then 1000mg/1000mg Bloodwork repeat CT chest around 6 months start Provigil 100mg daily F/U 3-4 months Orders: Orders Complete Blood Count Auto Diff Today R91.8 - Other nonspecific abnormal finding of lung field Basic Metabolic Panel Today R91.8 - Other nonspecific abnormal finding of lung field REGINA Reflex Titer and Pattern Today R91.8 - Other nonspecific abnormal finding of lung field Cyclic Citrullinated Peptide Today R91.8 - Other nonspecific abnormal finding of lung field HEMANTH 1 Antibody Today R91.8 - Other nonspecific abnormal finding of lung field Liver Panel Today R91.8 - Other nonspecific abnormal finding of lung field Erythrocyte Sedimentation Rate Today R91.8 - Other nonspecific abnormal finding of lung field Sjogren's Antibodies Today R91.8 - Other nonspecific abnormal finding of lung field Medications: New modafinil (Provigil) 100 mg PO DAILY 30 days 30 tabs 3RF Coding Level of Care Code Est Pt Level 5 (73149) Diagnoses Lung mass R91.8 Dyspnea on exertion R06.00 Dyspnea type: dyspnea on exertion Chest pain on breathing R07.1 Chest pain type: chest pain on breathing CINTHIA (obstructive sleep apnea) G47.33 Chronic fatigue R53.82 Time Spent (min) 45
== END 2023-10-13 16:04 | disposition home or self-care (01) ==
PROVIDERS: PCP Physician Assistant; Visit Provider Hospitalist
DX: R91.8 Other nonspecific abnormal finding of lung field (principal); R06.00 Dyspnea, unspecified; G47.33 Obstructive sleep apnea (adult) (pediatric); R07.1 Chest pain on breathing; R53.82 Chronic fatigue, unspecified
CPT/HCPCS: 99215

== ENCOUNTER 2023-10-13 15:19 | Outpatient (REF) | payer OTHER, SELFPAY ==
[2023-10-13 16:44] LABS: MANUAL DIFF FLAG NO
[2023-10-13 17:48] LABS: Basophils Absolute Auto 0.1 X10*3/uL (0.0-0.2); Basophils Percent Auto 0.8 % (0-2); Eosinophils Absolute Auto 0.2 X10*3/uL (0.0-0.4); Eosinophils Percent Auto 1.7 % (0-4); Hematocrit 43.1 % (42.0-52.0); Hemoglobin 15.1 g/dl (14.0-18.0); Imm Gran Abs Auto 0.15 X10*3/uL (0.00-0.03); Imm Gran Pct Auto 1.3 % (0.0-0.4); Lymphocytes Absolute Auto 3.7 X10*3/uL (1.2-4.9); Lymphocytes Percent Auto 31.2 % (20-40); Mean Corpuscular Hemoglobin 29.2 pg (27.0-33.0); Mean Corpuscular Volume 83.4 fL (80.0-98.0); Mean Platelet Volume 9.7 fL (9.4-12.4); Monocytes Absolute Auto 1.5 X10*3/uL (0.1-1.2); Monocytes Percent Auto 12.4 % (2-11); Neutrophils Absolute Auto 6.3 x10*3/uL (2.0-8.3); Neutrophils Percent Auto 52.6 % (45-73); Platelet Count 383 X10*3/uL (160-400); Red Blood Count 5.17 X10*6/uL (4.60-5.80); White Blood Count 11.9 X10*3/uL (4.8-10.8)
[2023-10-13 18:09] LABS: Alanine Aminotransferase 28 U/L (0-40); Albumin Level 4.4 g/dL (3.5-5.0); Alkaline Phosphatase 112 U/L (39-117); Anion Gap 12 (12-20); Aspartate Amino Transferase 26 U/L (5-37); Bilirubin Direct 0.2 mg/dL (0.0-0.5); Bilirubin Total 0.8 mg/dL (0.0-1.0); Blood Urea Nitrogen 17 mg/dL (9-16); Calcium 9.2 mg/dL (8.4-10.2); Carbon Dioxide 25 mmol/L (22-29); Chloride 110 mmol/L (96-108); Estimated Glomerular Filt Rate > 60; Glucose Random 89 mg/dL (60-115); Potassium 3.8 mmol/L (3.3-5.1); Sodium 143 mmol/L (135-145); Total Protein 7.9 g/dL (6.5-8.0)
[2023-10-13 18:13] LABS: Erythrocyte Sedimentation Rate 5 MM/HR (0-15)
[2023-10-14 20:23] LABS: Antibody to SS-A Antigen <1.0 NEG AI (<1.0 NEG); Antibody to SS-B Antigen <1.0 NEG AI (<1.0 NEG); JO 1 Antibody <1.0 NEG AI (<1.0 NEG)
[2023-10-15 13:08] LABS: Anti Nuclear Antibody Screen NEGATIVE (NEGATIVE)
[2023-10-15 14:33] LABS: Cyclic Citrullinated Peptide <16 UNITS
== END 2023-10-13 15:20 | disposition home or self-care (01) ==
LOC: HO.LAB 15:19
PROVIDERS: PCP Internal Medicine; Visit Provider Hospitalist
DX: R91.8 Other nonspecific abnormal finding of lung field (principal); R06.00 Dyspnea, unspecified; R07.1 Chest pain on breathing; R53.82 Chronic fatigue, unspecified; G47.33 Obstructive sleep apnea (adult) (pediatric)
CPT/HCPCS: 36415; 80048; 80076; 85025; 85652; 86038; 86200; 86235

== ENCOUNTER 2023-11-05 16:31 | Outpatient (AMB) | payer OTHER, SELFPAY ==
[2023-11-05 16:41] VITALS: BP 144/82; PULSE 72; O2SAT 96; BMI 33.5
--- NOTE | 2023-11-05 16:41 | A.OFFPC_ITS ---
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: No Accompanied by: Spouse Allergies No Known Allergies Allergy (Verified 11/05/23 16:55) Medication List - Last Reconciled 11/05/23 by Regina England MD albuterol sulfate 90 mcg/actuation (ProAir HFA) 2 inhalations inhalation Q6H PRN 30 days amlodipine 5 mg PO DAILY 90 days cholecalciferol (vitamin D3) 50 mcg PO DAILY fluticasone propionate 50 mcg/actuation 0 mcg intranasal [id number] 100-62.5-25 mcg (Trelegy Ellipta) 1 inh inhalation DAILY 30 days gabapentin 600 mg (2 x 300 mg) PO BEDTIME lidocaine 5% (Lidoderm) 1 patch topical DAILY 30 days loratadine 10 mg PO DAILY meloxicam 15 mg PO DAILY metoprolol tartrate 25 mg PO BID modafinil (Provigil) 100 mg PO DAILY 30 days mycophenolate mofetil 500 mg PO BID 30 days roflumilast (Daliresp) 500 mcg PO DAILY tamsulosin 0.4 mg PO DAILY tramadol 50 mg PO DAILY PRN 30 days Tobacco use date assessed: 06/30/23 Dental Screening Dental Screen Date: 06/30/23 HPI HPI Comments History of Present Illness Details This is a 58-year-old male with asthma-COPD overlap syndrome that comes today accompanied by for his physical exam. Asthma-COPD overlap syndrome has been stable with long-acting inhaler and this is follow by pulmonology. Blood pressure elevated because he has run out of amlodipine and needs a refill. Last colonoscopy was 2022 at [place] and next colonoscopy should be 2025 as per patient due to polyps removed but I do not have the results. We will ask for them. He complains of a skin lesion in the right side of the upper chest that is increasing in size and will be referred to Dermatology. Also has tinea pedis that bothers him. Also has been having erectile dysfunction. Even though he does not have depression or anxiety mentioned that they both 1 couples counseling. I told her that I was going to send a message to Behavioral [facility] to see how they can help me with that. 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 Pulmonary nodules Surgical History (Updated 11/05/23 @ 17:00 by Regina England MD) History of lung surgery History of vasectomy Hx of cholecystectomy History of splenectomy History of knee surgery Family History Mother Embolism Father HTN (hypertension) Partial sight in both eyes Hypercholesteremia Sister Sleep apnea Kidney disease HTN (hypertension) Asthma Arthritis Paternal Grandmother Cancer Social History Housing: House Alcohol intake: never Patient Tobacco Use Status: Former Tobacco user Tobacco use type: Cigarette e-Cigarette/Vaping Use: Never Used Second Hand Smoke Exposure: No service: No Current occupational status: employed Current occupational exposures/hazards: No Cognitive needs: No Hearing needs: No Vision needs: Yes Questionnaire Thrive Questionnaire Date Thrive assessed: 06/30/23 GUILHERME-7 AMB Questionnaire GUILHERME-7 Date GUILHERME - 7 assessed: 06/30/23 Source: Developed by Drs. Cuco Grullon, nAgie Gonzalez, Mark Davis and colleagues, with an educational agata from [employer]. Review of Systems Const All systems reviewed & are unremarkable except as noted in HPI and below Card Denies chest pain at rest, Denies chest pain with activity, Denies edema, Denies irregular heart rhythm, Denies claudication, Denies dyspnea, Denies dyspnea on exertion, Denies orthopnea, Denies paroxysmal nocturnal dyspnea and Denies slow heart rate Resp Denies cough, Denies dyspnea and Denies dyspnea on exertion Physical exam (Primary Care) Vital Signs: Last Vital Signs Pulse 72 11/05/23 16:41 BP 144/82 H 11/05/23 16:41 Pulse Ox 96 11/05/23 16:41 Oxygen Delivery Method Room Air 11/05/23 16:41 BMI result Body Mass Index 33.5 BMI Assessment/Plan discussion: High BMI High, discussed plan: lifestyle, weight reduction, dietary and physical activity Tobacco/Smoking Status: Tobacco use Status Tobacco use date assessed 06/30/23 11/05/23 16:42 Patient Tobacco Use Status Former Tobacco user 11/05/23 16:42 Tobacco use type Cigarette 11/05/23 16:42 e-Cigarette/Vaping Use Never Used 11/05/23 16:42 Thrive Assessment: Date of Thrive Assessment Date Thrive assessed 06/30/23 11/05/23 16:42 Const General: cooperative HENMT Head: Yes normal to inspection, Yes normocephalic and Yes atraumatic Ears: external ears normal Eyes General: appearance normal, both eyes and all related structures Eyelids: Yes eyelids normal Conjunctivae: conjunctivae normal EOM: EOMs intact bilaterally Neck Neck: Yes normal visual inspection and Yes supple Resp Effort & Inspection: normal respiratory effort Auscultation: clear to auscultation bilaterally Cardio Jugular venous distension: no JVD Rate: regular rate Rhythm: regular rhythm Heart sounds: S1 normal heart sound present and S2 normal heart sound present GI Inspection: Yes normal to inspection Palpation (GI): Soft to palpation and nontender Auscultation: normal bowel sounds Skin Other: Dry scaly pruritic skin in plantar area General skin exam: dry skin Lesions: lesion noted Neuro General: no focal motor deficits Extrem General: Yes full ROM Psych Appearance: grossly normal Assessment and Plan Assessment & Plan (1) Physical exam: Code(s): Z00.00 - Encounter for general adult medical examination without abnormal findings Plan: Repeat in a year. (2) Erectile dysfunction: Code(s): N52.9 - Male erectile dysfunction, unspecified Qualifiers: Erectile dysfunction type: unspecified Qualified Code(s): N52.9 - Male erectile dysfunction, unspecified Plan: Testosterone levels ordered. (3) Asthma-COPD overlap syndrome: Code(s): J44.9 - Chronic obstructive pulmonary disease, unspecified Plan: Continue Trelegy. Use rescue inhaler as needed. Follow-up with pulmonology. (4) Skin lesion: Code(s): L98.9 - Disorder of the skin and subcutaneous tissue, unspecified Plan: Referred to dermatology. (5) Tinea pedis: Code(s): B35.3 - Tinea pedis Qualifiers: Laterality: bilateral Qualified Code(s): B35.3 - Tinea pedis Plan: Start clotrimazole cream. Referred to Dermatology. Orders: Orders Lipid Panel Today Z00.00 - Encounter for general adult medical examination without abnormal findings Testosterone, Free/Total Today N52.9 - Male erectile dysfunction, unspecified Referrals Dermatology Referral B35.3 - Tinea pedis, L98.9 - Disorder of the skin and subcutaneous tissue, unspecified Medications: Refilled amlodipine 5 mg PO DAILY 90 tabs 1RF 90 days Coding Level of Care Code Est Pt Level 3 (16268) Est Pt Prev Care 40-64y(91555) Diagnoses Physical exam Z00.00 Erectile dysfunction, unspecified erectile dysfunction type N52.9 Erectile dysfunction type: unspecified Asthma-COPD overlap syndrome J44.9 Skin lesion L98.9 Tinea pedis of both feet B35.3 Laterality: bilateral Time Spent (min) 40
== END 2023-11-05 17:09 | disposition home or self-care (01) ==
PROVIDERS: PCP Physician Assistant; Visit Provider Internal Medicine
DX: Z00.00 Encounter for general adult medical examination without abnormal findings (principal); N52.9 Male erectile dysfunction, unspecified; J44.9 Chronic obstructive pulmonary disease, unspecified; L98.9 Disorder of the skin and subcutaneous tissue, unspecified; B35.3 Tinea pedis
CPT/HCPCS: 99213; 99396

== ENCOUNTER 2023-11-06 15:15 | Outpatient (REF) | payer OTHER, SELFPAY ==
[2023-11-06 17:31] LABS: Alanine Aminotransferase 26 U/L (0-40); Albumin Level 4.3 g/dL (3.5-5.0); Alkaline Phosphatase 101 U/L (39-117); Anion Gap 12 (12-20); Aspartate Amino Transferase 18 U/L (5-37); Bilirubin Total 0.9 mg/dL (0.0-1.0); Blood Urea Nitrogen 19 mg/dL (9-16); Calcium 9.8 mg/dL (8.4-10.2); Carbon Dioxide 26 mmol/L (22-29); Chloride 108 mmol/L (96-108); Cholesterol 146 mg/dL (<200); Estimated Glomerular Filt Rate > 60; Glucose Fasting 89 mg/dL (60-99); HDL Cholesterol 41 mg/dL (>40); LDL Cholesterol Calculated 85 mg/dL (<100); Potassium 3.8 mmol/L (3.3-5.1); Sodium 142 mmol/L (135-145); Total Protein 7.6 g/dL (6.5-8.0); Triglycerides 101 mg/dL (<150)
[2023-11-12 08:42] LABS: Testosterone, Free 49.1 pg/mL (35.0-155.0); Testosterone, Total 481 ng/dL (250-1100)
== END 2023-11-06 15:16 | disposition home or self-care (01) ==
LOC: HO.LAB 15:15
PROVIDERS: PCP Internal Medicine; Visit Provider Internal Medicine
DX: Z00.00 Encounter for general adult medical examination without abnormal findings (principal); I10 Essential (primary) hypertension; N52.9 Male erectile dysfunction, unspecified
CPT/HCPCS: 36415; 80053; 80061; 84402; 84403

== ENCOUNTER 2023-12-15 15:18 | Outpatient (AMB) | payer OTHER, SELFPAY ==
--- NOTE | 2023-12-15 15:25 | MHC.OFFVIS ---
Vital Signs 12/15/23 15:26 Height 5 ft 5 in Weight 201 lb 4.513 oz BMI 33.5 Pulse 73 Pulse Source Pulse Oximeter Pulse Oximetry (%) 98 Oxygen Delivery Method Room Air Intake Visit Reasons: Asthma Senior Director Of Strategy Required: No Allergies No Known Allergies Allergy (Verified 12/15/23 15:29) HPI Comments Details: The patient is a 58-year-old gentleman with a known history of nodular densities. Apparently back in 2017 he had a shoulder injury and he went to get an x-ray. His x-ray was abnormal with the an abnormal finding on the lung field. Therefore he underwent a CT scan of the chest demonstrating a masslike density in the left upper lobe area. He also had other densities. He had a PET scan apparently was positive in had a biopsy at that time. CT guided biopsy demonstrated that he had some inflammation although nondiagnostic. Then everything was left alone until again 2017 when he was not feeling well. He was having some malaise symptoms along with not feeling well. Denied any respiratory symptoms the time. He underwent a repeat imaging study and subsequently repeat biopsy demonstrating now giant cell allergic reaction along with what appears to be a foreign body reaction. The patient all the really was referred to a thoracic surgery where he had a wedge resection. 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 Also to note that hypersensitivity panel was significantly elevated for a lot of mold. His microbiology from the wedge resections are still pending no growth today. No evidence of any acid-fast disease. He is tolerating the Breo inhaler and this appears to be helping. Denies any productive coughing or significant wheezing. He does have a dry cough at times and times he can not be barking nature. He does still get some discomfort to the left side does with the area that he had a surgery in addition to the fact that he does some heavy lifting at work. We did review his CT scan from November 2018 in addition to his CT scan from May 2019. The left upper lobe masslike densities pre similar in anything possibly little larger in size. The other nodular densities phone in the lingula and also in the left lower lobe have appear to be improved. Still has a emphysematous changes the unilateral side. Plan to repeat the CT scan sometime in February and at that time depending on the findings with decide to potentially do a bronchoscopy. We did review all the cultures from [facility] in all were negative for any mycobacterial infections or fungal infections. 05/24/2022 the patient is here for a pulmonary follow-up visit. He did start using the CPAP. The CPAP therapy has been affecting beneficial. He has been tolerating the BiPAP. However, he was not tolerating the mask that he did get from the [employer]. He did better with the mask that he had from the sleep study. Therefore I did request that which was stated N20 large mask. he does need to get a chinstrap to minimize under dryness of the mouth. The pain continues to be initial. 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 He knows to minimize the medication if possible. He also uses Lidoderm patch that to help him really get some relief as well. He has been using his respiratory medications in addition to the Daliresp. he will continue to struggle with his chronic respiratory complaints including the chest discomfort in the shortness of breath that he is slowly working to try to improved although it it is a significant limitation in a quality of life issue for him and his family. 10/07/2022 the patient is here for pulmonary follow-up visit. He has been having hard time lately with increasing shortness of breath. Complains of chest tightness and fatigue. Sometimes hard for him to get to work. At work he does wear a mask when needed. Although he still feels like he is getting exposed to significant amount of in organic dust in his work environment and also in other areas. I do believe the patient has likely more inflammatory changes.. The CT scan of the chest demonstrating interval increase in his airspace disease which is concerning. Will go ahead and treated with some prednisone to see if this helps decrease inflammation and hopefully his symptoms as well. 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 In view of the slight increase in size of his left upper lobe parenchymal process taking view important for additional evaluation. Will even consider re-biopsy of this area. Although, the initial biopsy was and still is painful. The patient also continues uses CPAP every night. CPAP therapy continues to be affecting beneficial. He does use it for more than 4 hours a night. He has been getting supplies readily. Pain control he has been using as needed tramadol and also will try the prednisone to decrease inflammation at this time. 11/07/2022 The patient is here for a pulmonary follow up. The patient feels like it is getting worse. Complains of worsening dyspnea worsening fatigue. Also having worsening left-sided chest discomfort. Based on his last CT scan there was some interval increase in the area of airspace disease. He did take the trial of prednisone but did not see any significant improvement. He does continue with his respiratory therapy and also he has been using the CPAP at nighttime. The CPAP therapy continues to be affecting beneficial. He is scheduled to go to [place] for 2nd opinion the end of November. At this point would be prudent in view of his worsening symptoms to have him stay out of work until that evaluation. 02/07/2023 the patient is here for pulmonary follow-up visit. Overall he is doing about the same. He is back to work. The patient needs to wear respirator. He is concerned about the worsening density in his lung. He was referred to [place] will be reviewing the pathology in the radiology and getting back to us. Depending on the findings will likely place him on immunomodulator for period time and then reimage closer to a year from his last CT scan which be in July 2023. we did talk about potentially methotrexate or mycophenolate as potential medications. Will have blood work today to assess his blood work prior to starting the medication. The patient continues uses CPAP every night CPAP therapy continues to be affecting beneficial when he does use it for more than 4 hours a night. Also continues with respiratory therapy. 05/09/2023 the patient is here for pulmonary follow-up visit. The patient has been working with respirator and seems to be working well. He is monitoring closely his weight he has had some weight gain that unfortunately is going to affect his respiratory capacity as well. He is looking in to getting involved in a weight loss program. In the meantime we have not heard back from the 2nd opinion on his pathology. Were hoping to get the [place] [facility] [place] order to start him on immunomodulator therapy. At this point will go ahead and start him on CellCept and we will request those results from [place] to be provided as soon as possible. The patient's 's also going to be calling [place] to get those results. The patient is scheduled to undergo a repeat CT scan in July and therefore can see the response to the mycophenolate therapy. The patient will start the therapy on a lower dose and then will request blood work and a month's time. We did already have preliminary laboratory data which is reassuring for him to start the therapy at this time. He also continues uses CPAP. The CPAP therapy continues to be affecting beneficial. Does try to use it 4 hours a night, but has been short. 07/28/2023 the patient is here for a pulmonary follow-up visit. He continues to work. He has a hard time wearing the mask this is hard for him to breathe. But he understands that he can not be exposed to further inorganic does not through his lungs. Had been on the mycophenolate. But then started developing adverse symptoms. Hard to know if those from the medication. The plan was for him to stop the medication and then to start on a daily basis with 1 tablet. Then will kind of monitoring closely. However, the patient was not able to start the mycophenolate as of yet. Therefore he really has not taken it for too long. Will plan to do a CT scan after treatment with the mycophenolate. For that reason will go ahead and spoke the CT scan for couple months in order for him tolerate the medicine then be able to check the CT scan. If the patient develops any worsening symptoms though he is calm we can try to get the CT scan sooner. In addition to that it appears that [facility] finally received the pathology slides from [facility]. The [facility] will be looking at the slides and try to further address if there is any inorganic dust that is contributing to the underlying interstitial lung disease. He continues pleuritic pain the site of the surgery. Patient has been responding partially to tramadol as needed. Patient has also been using his CPAP. CPAP therapy continues to be affecting beneficial. He does try to use it 4 hours a night. His AHI is down to 0.3. therefore, will continue with the current CPAP therapy. 10/13/2023 the patient is here for a pulmonary follow-up visit. He continues to be pretty symptomatic. He has been on the mycophenolate. Initially he was started on 5 mg twice a day. However, he was having significant adverse effects from the medication and stopped it. During the last visit back in July we were able to restarted but keep him on a 500 mg dose daily. He did have a repeat CT scan of the chest which I personally reviewed with him and his . It appears that the masslike density in the left upper lobe is the same in the other nodular densities are also the same. Possibly some slight improvement in the left base. Although is not been officially read as of yet. At least is reassuring that does not appear to be getting worse unlike the previous CT scan. I do believe that the dose is too low we have to increase it. Will go ahead increase to 500 mg twice a day for 1 month and then subsequently increase it by 5 mg every month to a maximal g a day. Of which point we can request a repeat CT scan to see if there is any further degree of decreasing this mask. However, the patient continues to have significant adverse effects from the medication is going to be hard for him to function. We did talk about alternatives including other immunomodulator therapy to replace the mycophenolate in view of the adverse effects. However, it would require us to start beginning and also has his own pulmonary toxicities and other adverse effects that around them not encounter. I do hope that as he continues the medication he can develop tolerance. Will go and request blood work to make sure that there was no abnormalities to contraindicate increasing medication. Therefore we continue with the FMLA papers he can take a few days also specially if the drowsiness significant. If it becomes persistent then he may need to looking to potential disability in view of his ongoing chronic progressive disease. The patient appears to have significant limitations due to his ongoing comorbidities. He continues uses CPAP every night CPAP therapy continues to be affecting beneficial. He continues with respiratory therapy as prescribed. He has been very adherent. He still struggling with the postthoracotomy syndrome pain and the pain from the mask and does require pain medications as needed. I did speak to the occupational clinic in [place]. pathology did review the surgical slides. His pathology is really unclear although they definitely did not see any evidence of any severe kyphosis. Although my suspicion is that he does have some underlying worsening of his ongoing disease due to further inorganic dust exposure while at work. I do believe that the exposure is going to continue worsening his respiratory condition. Therefore, this point will go ahead and increase the mycophenolate knowing that he may develop worsening fatigue and it may decrease his functional capacity throughout the day with the hope that we can stop the progression of this masslike density from further irreversible damage in his lung. 12/15/2023 the patient is here for a pulmonary follow-up visit. He has been taking the CellCept 500 mg twice a day. Hopefully we can increase it further to a go 2 g a day. Increase slowly. He is still having daytime drowsiness and chronic fatigue. Has not started the Provigil just yet. He was started now. In addition to that he will undergo blood work prior to the next visit. His last CT scan was back in 09/15/2023. He has a masslike density. Will go ahead and repeat the CT scan of the chest sometime in the end of February after he is on his optimal dose of mycophenolate. In the meantime he is having difficulty walking. He is having difficulty with his shortness of breath and also arthritic 80s. He is requesting a placard. I did provide him paperwork in order for him to get him up stick her in view of her significant chest pain shortness of breath and ongoing comorbidities. Although he needs to continue to exercise. Because was polypharmacy will try to titrate down the Daliresp. Will decrease it down to every other day. If he does not tolerate that he can always increase it to the full dose of it felt like it was working well. 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 Pulmonary nodules Surgical History (Updated 11/05/23 @ 17:00 by Regina England MD) History of lung surgery History of vasectomy Hx of cholecystectomy History of splenectomy History of knee surgery Family History Mother Embolism Father HTN (hypertension) Partial sight in both eyes Hypercholesteremia Sister Sleep apnea Kidney disease HTN (hypertension) Asthma Arthritis Paternal Grandmother Cancer Social History Housing: House Alcohol intake: never Patient Tobacco Use Status: Former Tobacco user Tobacco use type: Cigarette e-Cigarette/Vaping Use: Never Used Second Hand Smoke Exposure: No service: No Current occupational status: employed Current occupational exposures/hazards: No Cognitive needs: No Hearing needs: No Vision needs: Yes Review of Systems Const Reports difficulty sleeping, Reports fatigue and Reports weight gain Eyes Denies loss of vision ENT Denies dizziness and Denies hearing loss Card Reports chest pain, Denies claudication, Denies leg edema, Denies lightheadedness, Reports palpitations, Reports dyspnea, Reports dyspnea on exertion and Denies orthopnea Resp Denies cough, Denies excessive phlegm production, Reports pain on inspiration, Reports pain with cough, Reports dyspnea, Reports dyspnea on exertion and Denies wheezing GI Denies abdominal pain, Denies hematochezia, Denies change in bowel habits, Denies change in stool character, Denies heartburn, Denies nausea and Denies vomiting Denies dysuria and Denies urinary frequency Musc Denies arthralgias, Denies muscle weakness, Denies numbness and Denies other (Frequent falls) Skin/Breast Denies nail changes and Denies rash Neuro Denies dizziness, Denies loss of vision, Denies memory loss and Denies numbness Psych Denies depression and Denies memory loss Endo Reports fatigue and Reports palpitations Aller/Immun Denies wheezing Physical Exam Vital Signs: Last Vital Signs Pulse 73 12/15/23 15:26 Pulse Ox 98 12/15/23 15:26 Oxygen Delivery Method Room Air 12/15/23 15:26 BMI result Body Mass Index 33.5 Const General: alert Neck Neck: Yes normal visual inspection, Yes full ROM and Yes no lymphadenopathy Chest Chest palpation & inspection: tenderness rib Resp Auscultation: diminished lung sounds Cardio Rate: regular rate Rhythm: regular rhythm Heart sounds: S1 normal heart sound present and S2 normal heart sound present GI Palpation (GI): Soft to palpation and nontender Auscultation: normal bowel sounds Skin General skin exam: rashes and/or lesions noted Assessment & Plan Assessment & Plan (1) Lung mass: Code(s): R91.8 - Other nonspecific abnormal finding of lung field Category: Medical (2) Dyspnea: Code(s): R06.00 - Dyspnea, unspecified Category: Medical Qualifiers: Dyspnea type: dyspnea on exertion Qualified Code(s): R06.00 - Dyspnea, unspecified (3) Chest pain: Code(s): R07.9 - Chest pain, unspecified Category: Medical Qualifiers: Chest pain type: chest pain on breathing Qualified Code(s): R07.1 - Chest pain on breathing (4) CINTHIA (obstructive sleep apnea): Code(s): G47.33 - Obstructive sleep apnea (adult) (pediatric) Category: Medical (5) Chronic fatigue: Code(s): R53.82 - Chronic fatigue, unspecified Category: Medical Plan Needs to avoid all inorganic dust based on the fact that he already has evidence of interstitial lung disease. Awaiting formal review of pathology and radiology at the [facility] [place]. We requested a report continue APAP to treat his severe CINTHIA, new mask N20 large with Chin strap continue Daliresp, decrease to every other day Continue Trelegy Continue Gabapentin at night Pain management: toradol as needed, lidoderm patch, gabapentin continue Cellcept 500mg BID, then 1000mg/500mg, then 1000mg BID Bloodwork repeat CT chest around start Provigil 100mg daily F/U 3-4 months Orders: Orders Complete Blood Count Auto Diff Today R91.8 - Other nonspecific abnormal finding of lung field Basic Metabolic Panel Today R91.8 - Other nonspecific abnormal finding of lung field CT chest wo IV con 03/27/24 R91.8 - Other nonspecific abnormal finding of lung field Liver Panel Today R91.8 - Other nonspecific abnormal finding of lung field Erythrocyte Sedimentation Rate Today R91.8 - Other nonspecific abnormal finding of lung field Medications: Refilled lidocaine 5% (Lidoderm) leave on most painful area for up to 12 hrs 1 patch topical DAILY 30 days 30 ea 6RF G89.12 - Acute post-thoracotomy pain Coding Level of Care Code Est Pt Level 5 (43655) Diagnoses Lung mass R91.8 Dyspnea on exertion R06.00 Dyspnea type: dyspnea on exertion Chest pain on breathing R07.1 Chest pain type: chest pain on breathing CINTHIA (obstructive sleep apnea) G47.33 Chronic fatigue R53.82 Time Spent (min) 40
[2023-12-15 15:26] VITALS: PULSE 73; O2SAT 98; BMI 33.5
== END 2023-12-15 16:03 | disposition home or self-care (01) ==
PROVIDERS: PCP Physician Assistant; Visit Provider Hospitalist
DX: R91.8 Other nonspecific abnormal finding of lung field (principal); R06.00 Dyspnea, unspecified; R07.1 Chest pain on breathing; G47.33 Obstructive sleep apnea (adult) (pediatric); R53.82 Chronic fatigue, unspecified
CPT/HCPCS: 99215

== ENCOUNTER → 2023-12-15 15:18 | Outpatient (BNVA) | payer OTHER, SELFPAY | PROVIDERS: PCP Physician Assistant; Visit Provider Hospitalist | DX: R91.8 Other nonspecific abnormal finding of lung field (principal) ==

== ENCOUNTER 2024-03-10 09:11 | Outpatient (AMB) | payer OTHER, SELFPAY ==
[2024-03-10 09:20] VITALS: BP 144/78; PULSE 72; O2SAT 96; BMI 34.3
--- NOTE | 2024-03-10 09:20 | A.OFFVIS_ITS ---
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 Entry Writer: Entry Writer offered & declined Accompanied by: Family/Other Allergies No Known Allergies Allergy (Verified 03/10/24 09:26) Medication List - Last Reconciled 03/10/24 by Cristina Burkett LPN albuterol sulfate 90 mcg/actuation (ProAir HFA) 2 inhalations inhalation Q6H PRN 30 days amlodipine 5 mg PO DAILY 90 days cholecalciferol (vitamin D3) 50 mcg PO DAILY clotrimazole 1% 1 appl topical BID 4 weeks fluticasone propionate 50 mcg/actuation 0 mcg intranasal lxlducwlxsp-xfufrukmh-expalqli 100-62.5-25 mcg (Trelegy Ellipta) 1 inh inhalation DAILY 30 days gabapentin 600 mg (2 x 300 mg) PO BEDTIME lidocaine 5% (Lidoderm) 1 patch topical DAILY 30 days loratadine 10 mg PO DAILY meloxicam 15 mg PO DAILY modafinil (Provigil) 100 mg PO DAILY 30 days mycophenolate mofetil 1,000 mg (2 x 500 mg) PO BID 30 days roflumilast (Daliresp) 500 mcg PO DAILY tamsulosin 0.4 mg PO DAILY tramadol 50 mg PO DAILY PRN 30 days HPI Comments Details: The patient is a 58-year-old gentleman with a known history of nodular densities. Apparently back in 2017 he had a shoulder injury and he went to get an x-ray. His x-ray was abnormal with the an abnormal finding on the lung field. Therefore he underwent a CT scan of the chest demonstrating a masslike density in the left upper lobe area. He also had other densities. He had a PET scan apparently was positive in had a biopsy at that time. CT guided biopsy demonstrated that he had some inflammation although nondiagnostic. Then everything was left alone until again 2018 when he was not feeling well. He was having some malaise symptoms along with not feeling well. Denied any respiratory symptoms the time. He underwent a repeat imaging study and subsequently repeat biopsy demonstrating now giant cell allergic reaction along with what appears to be a foreign body reaction. The patient all the really was referred to a thoracic surgery where he had a wedge resection. 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 Also to note that hypersensitivity panel was significantly elevated for a lot of mold. His microbiology from the wedge resections are still pending no growth today. No evidence of any acid-fast disease. He is tolerating the Breo inhaler and this appears to be helping. Denies any productive coughing or significant wheezing. He does have a dry cough at times and times he can not be barking nature. He does still get some discomfort to the left side does with the area that he had a surgery in addition to the fact that he does some heavy lifting at work. We did review his CT scan from November 2018 in addition to his CT scan from May 2019. The left upper lobe masslike densities pre similar in anything possibly little larger in size. The other nodular densities phone in the lingula and also in the left lower lobe have appear to be improved. Still has a emphysematous changes the unilateral side. Plan to repeat the CT scan sometime in February and at that time depending on the findings with decide to potentially do a bronchoscopy. We did review all the cultures from [facility] in all were negative for any mycobacterial infections or fungal infections. 05/24/2022 the patient is here for a pulmonary follow-up visit. He did start using the CPAP. The CPAP therapy has been affecting beneficial. He has been tolerating the BiPAP. However, he was not tolerating the mask that he did get from the [employer]. He did better with the mask that he had from the sleep study. Therefore I did request that which was stated N20 large mask. he does need to get a chinstrap to minimize under dryness of the mouth. The pain continues to be initial. 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 He knows to minimize the medication if possible. He also uses Lidoderm patch that to help him really get some relief as well. He has been using his respiratory medications in addition to the Daliresp. he will continue to struggle with his chronic respiratory complaints including the chest discomfort in the shortness of breath that he is slowly working to try to improved although it it is a significant limitation in a quality of life issue for him and his family. 10/07/2022 the patient is here for pulmonary follow-up visit. He has been having hard time lately with increasing shortness of breath. Complains of chest tightness and fatigue. Sometimes hard for him to get to work. At work he does wear a mask when needed. Although he still feels like he is getting exposed to significant amount of in organic dust in his work environment and also in other areas. I do believe the patient has likely more inflammatory changes.. The CT scan of the chest demonstrating interval increase in his airspace disease which is concerning. Will go ahead and treated with some prednisone to see if this helps decrease inflammation and hopefully his symptoms as well. 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 In view of the slight increase in size of his left upper lobe parenchymal process taking view important for additional evaluation. Will even consider re-biopsy of this area. Although, the initial biopsy was and still is painful. The patient also continues uses CPAP every night. CPAP therapy continues to be affecting beneficial. He does use it for more than 4 hours a night. He has been getting supplies readily. Pain control he has been using as needed tramadol and also will try the prednisone to decrease inflammation at this time. 11/07/2022 The patient is here for a pulmonary follow up. The patient feels like it is getting worse. Complains of worsening dyspnea worsening fatigue. Also having worsening left-sided chest discomfort. Based on his last CT scan there was some interval increase in the area of airspace disease. He did take the trial of prednisone but did not see any significant improvement. He does continue with his respiratory therapy and also he has been using the CPAP at nighttime. The CPAP therapy continues to be affecting beneficial. He is scheduled to go to [place] for 2nd opinion the end of November. At this point would be prudent in view of his worsening symptoms to have him stay out of work until that evaluation. 02/07/2023 the patient is here for pulmonary follow-up visit. Overall he is doing about the same. He is back to work. The patient needs to wear respirator. He is concerned about the worsening density in his lung. He was referred to [place] will be reviewing the pathology in the radiology and getting back to us. Depending on the findings will likely place him on immunomodulator for period time and then reimage closer to a year from his last CT scan which be in July 2023. we did talk about potentially methotrexate or mycophenolate as potential medications. Will have blood work today to assess his blood work prior to starting the medication. The patient continues uses CPAP every night CPAP therapy continues to be affecting beneficial when he does use it for more than 4 hours a night. Also continues with respiratory therapy. 05/09/2023 the patient is here for pulmonary follow-up visit. The patient has been working with respirator and seems to be working well. He is monitoring closely his weight he has had some weight gain that unfortunately is going to affect his respiratory capacity as well. He is looking in to getting involved in a weight loss program. In the meantime we have not heard back from the 2nd opinion on his pathology. Were hoping to get the pathology reading from [facility] in order to start him on immunomodulator therapy. At this point will go ahead and start him on CellCept and we will request those results from [place] to be provided as soon as possible. The patient's 's also going to be calling [place] to get those results. The patient is scheduled to undergo a repeat CT s can in July and therefore can see the response to the mycophenolate therapy. The patient will start the therapy on a lower dose and then will request blood work and a month's time. We did already have preliminary laboratory data which is reassuring for him to start the therapy at this time. He also continues uses CPAP. The CPAP therapy continues to be affecting beneficial. Does try to use it 4 hours a night, but has been short. 07/28/2023 the patient is here for a pulmonary follow-up visit. He continues to work. He has a hard time wearing the mask this is hard for him to breathe. But he understands that he can not be exposed to further inorganic does not through his lungs. Had been on the mycophenolate. But then started developing adverse symptoms. Hard to know if those from the medication. The plan was for him to stop the medication and then to start on a daily basis with 1 tablet. Then will kind of monitoring closely. However, the patient was not able to start the myc ophenolate as of yet. Therefore he really has not taken it for too long. Will plan to do a CT scan after treatment with the mycophenolate. For that reason will go ahead and spoke the CT scan for couple months in order for him tolerate the medicine then be able to check the CT scan. If the patient develops any worsening symptoms though he is calm we can try to get the CT scan sooner. In addition to that it appears that [facility] finally received the pathology slides from [facility]. The [facility] patient health department will be looking at the slides and try to further address if there is any inorganic dust that is contributing to the underlying interstitial lung disease. He continues pleuritic pain the site of the surgery. Patient has been responding partially to tramadol as needed. Patient has also been using his CPAP. CPAP therapy continues to be affecting beneficial. He does try to use it 4 hours a night. His AHI is down to 0.3. therefore, will continue with the current CPAP therapy. 10/13/2023 the patient is here for a pulmonary follow-up visit. He continues to be pretty symptomatic. He has been on the mycophenolate. Initially he was started on 5 mg twice a day. However, he was having significant adverse effects from the medication and stopped it. During the last visit back in July we were able to restarted but keep him on a 500 mg dose daily. He did have a repeat CT scan of the chest which I personally reviewed with him and his . It appears that the masslike density in the left upper lobe is the same in the other nodular densities are also the same. Possibly some slight improvement in the left base. Although is not been officially read as of yet. At least is reassuring that does not appear to be getting worse unlike the previous CT scan. I do believe that the dose is too low we have to increase it. Will go ahead increase to 500 mg twice a day for 1 month and then subsequently increase it by 5 mg every month to a maximal g a day. Of which point we can request a repeat CT scan to see if there is any further degree of decreasing this mask. However, the patient continues to have significant adverse effects from the medication is going to be hard for him to function. We did talk about alternatives including other immunomodulator therapy to replace the mycophenolate in view of the adverse effects. However, it would require us to start beginning and also has his own pulmonary toxicities and other adverse effects that around them not encounter. I do hope that as he continues the medication he can develop tolerance. Will go and request blood work to make sure that there was no abnormalities to contraindicate increasing medication. Therefore we continue with the FMLA papers he can take a few days also specially if the drowsiness significant. If it becomes persistent then he may need to looking to potential disability in view of his ongoing chronic progressive disease. The patient appears to have significant limitations due to his ongoing comorbidities. He continues uses CPAP every night CPAP therapy continues to be affecting beneficial. He continues with respiratory therapy as prescribed. He has been very adherent. He still struggling with the postthoracotomy syndrome pain and the pain from the mask and does require pain medications as needed. I did speak to the occupational clinic in [place]. pathology did review the surgical slides. His pathology is really unclear although they definitely did not see any evidence of any severe kyphosis. Although my suspicion is that he does have some underlying worsening of his ongoing disease due to further inorganic dust exposure while at work. I do believe that the exposure is going to continue worsening his respiratory condition. Therefore, this point will go ahead and increase the mycophenolate knowing that he may develop worsening fatigue and it may decrease his functional capacity throughout the day with the hope that we can stop the progression of this masslike density from further irreversible damage in his lung. 12/15/2023 the patient is here for a pulmonary follow-up visit. He has been taking the CellCept 500 mg twice a day. Hopefully we can increase it further to a go 2 g a day. Increase slowly. He is still having daytime drowsiness and chronic fatigue. Has not started the Provigil just yet. He was started now. In addition to that he will undergo blood work prior to the next visit. His last CT scan was back in 09/15/2023. He has a masslike density. Will go ahead and repeat the CT scan of the chest sometime in the end of February after he is on his optimal dose of mycophenolate. In the meantime he is having difficulty walking. He is having difficulty with his shortness of breath and also arthritic 80s. He is requesting a placard. I did provide him paperwork in order for him to get him up stick her in view of her significant chest pain shortness of breath and ongoing comorbidities. Although he needs to continue to exercise. Because was polypharmacy will try to titrate down the Daliresp. Will decrease it down to every other day. If he does not tolerate that he can always increase it to the full dose of it felt like it was working well. 03/10/2024 the patient is here for pulmonary follow-up visit. He continues to take the CellCept. He has been able to increase it to 500 mg 3 times a day. He has a hard time with it because it caused significant fatigue difficult for him to function. He continues with the FMLA papers. We did filament. He did not try the Provigil just yet. The patient will have blood work today to make sure that he is doing well. He is going to have a CT scan next month and will follow-up. But hoping that he can be on 4 tablets of the mycophenolate prior to the CT scan to see the full effect of the medication. If the masslike density has gotten worse then he will need additional testing for it. 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 Pulmonary nodules Surgical History (Updated 11/05/23 @ 17:00 by Regina England MD) History of lung surgery History of vasectomy Hx of cholecystectomy History of splenectomy History of knee surgery Family History Mother Embolism Father HTN (hypertension) Partial sight in both eyes Hypercholesteremia Sister Sleep apnea Kidney disease HTN (hypertension) Asthma Arthritis Paternal Grandmother Cancer Social History Housing: House Alcohol intake: never Patient Tobacco Use Status: Former Tobacco user Tobacco use type: Cigarette e-Cigarette/Vaping Use: Never Used Second Hand Smoke Exposure: No service: No Current occupational status: employed Current occupational exposures/hazards: No Cognitive needs: No Hearing needs: No Vision needs: Yes Review of Systems Const Reports difficulty sleeping, Reports fatigue and Reports weight gain Eyes Denies loss of vision ENT Denies dizziness and Denies hearing loss Card Reports chest pain, Denies claudication, Denies leg edema, Denies lightheadedness, Reports palpitations, Reports dyspnea, Reports dyspnea on exertion and Denies orthopnea Resp Denies cough, Denies excessive phlegm production, Reports pain on inspiration, Reports pain with cough, Reports dyspnea, Reports dyspnea on exertion and Denies wheezing GI Denies abdominal pain, Denies hematochezia, Denies change in bowel habits, Denies change in stool character, Denies heartburn, Denies nausea and Denies vomiting Denies dysuria and Denies urinary frequency Musc Denies arthralgias, Denies muscle weakness, Denies numbness and Denies other (Frequent falls) Skin/Breast Denies nail changes and Denies rash Neuro Denies dizziness, Denies loss of vision, Denies memory loss and Denies numbness Psych Denies depression and Denies memory loss Endo Reports fatigue and Reports palpitations Aller/Immun Denies wheezing Physical Exam Vital Signs: Last Vital Signs Pulse 72 03/10/24 09:20 BP 144/78 H 03/10/24 09:20 Pulse Ox 96 03/10/24 09:20 Oxygen Delivery Method Room Air 03/10/24 09:20 BMI result Body Mass Index 34.3 Const General: alert Neck Neck: Yes normal visual inspection, Yes full ROM and Yes no lymphadenopathy Chest Chest palpation & inspection: tenderness rib Resp Auscultation: diminished lung sounds Cardio Rate: regular rate Rhythm: regular rhythm Heart sounds: S1 normal heart sound present and S2 normal heart sound present GI Palpation (GI): Soft to palpation and nontender Auscultation: normal bowel sounds Skin General skin exam: rashes and/or lesions noted Assessment & Plan Assessment & Plan (1) Lung mass: Code(s): R91.8 - Other nonspecific abnormal finding of lung field Category: Medical (2) Dyspnea: Code(s): R06.00 - Dyspnea, unspecified Category: Medical Qualifiers: Dyspnea type: dyspnea on exertion Qualified Code(s): R06.00 - Dyspnea, unspecified (3) Chest pain: Code(s): R07.9 - Chest pain, unspecified Category: Medical Qualifiers: Chest pain type: chest pain on breathing Qualified Code(s): R07.1 - Chest pain on breathing (4) CINTHIA (obstructive sleep apnea): Code(s): G47.33 - Obstructive sleep apnea (adult) (pediatric) Category: Medical (5) Chronic fatigue: Code(s): R53.82 - Chronic fatigue, unspecified Category: Medical Plan Needs to avoid all inorganic dust based on the fact that he already has evidence of interstitial lung disease. continue APAP to treat his severe CINTHIA, new mask N20 large with Chin strap continue Daliresp, decrease to every other day Continue Trelegy Continue Gabapentin at night Pain management: toradol as needed, lidoderm patch, gabapentin continue Cellcept 500mg BID, then 1000mg/500mg, then 1000mg BID Bloodwork repeat CT chest around Feb/Mar start Provigil 100mg daily F/U 1-2 months Orders: Orders Complete Blood Count Auto Diff Today R91.8 - Other nonspecific abnormal finding of lung field Liver Panel Today R91.8 - Other nonspecific abnormal finding of lung field Basic Metabolic Panel Today R91.8 - Other nonspecific abnormal finding of lung field Erythrocyte Sedimentation Rate Today R91.8 - Other nonspecific abnormal finding of lung field Coding Level of Care Code Est Pt Level 4 (40189) Complex EM visit Add On G2211 Diagnoses Lung mass R91.8 Dyspnea on exertion R06.00 Dyspnea type: dyspnea on exertion Chest pain on breathing R07.1 Chest pain type: chest pain on breathing CINTHIA (obstructive sleep apnea) G47.33 Chronic fatigue R53.82 Time Spent (min) 17
== END 2024-03-10 10:45 | disposition home or self-care (01) ==
PROVIDERS: PCP Physician Assistant; Visit Provider Hospitalist
DX: R91.8 Other nonspecific abnormal finding of lung field (principal); R06.00 Dyspnea, unspecified; R07.1 Chest pain on breathing; G47.33 Obstructive sleep apnea (adult) (pediatric); R53.82 Chronic fatigue, unspecified
CPT/HCPCS: 99214

== ENCOUNTER 2024-03-10 09:11 | Outpatient (REF) | payer OTHER, SELFPAY ==
[2024-03-10 10:38] LABS: Basophils Absolute Auto 0.1 X10*3/uL (0.0-0.2); Basophils Percent Auto 0.6 % (0-2); Eosinophils Absolute Auto 0.1 X10*3/uL (0.0-0.4); Eosinophils Percent Auto 0.9 % (0-4); Hematocrit 44.7 % (42.0-52.0); Hemoglobin 15.6 g/dl (14.0-18.0); Imm Gran Abs Auto 0.16 X10*3/uL (0.00-0.03); Imm Gran Pct Auto 1.4 % (0.0-0.4); Lymphocytes Absolute Auto 3.5 X10*3/uL (1.2-4.9); Lymphocytes Percent Auto 30.4 % (20-40); MANUAL DIFF FLAG SCAN; Mean Corpuscular HGB Conc 34.9 g/dl (31.0-36.0); Mean Corpuscular Volume 83.1 fL (80.0-98.0); Mean Platelet Volume 9.6 fL (9.4-12.4); Monocytes Absolute Auto 1.6 X10*3/uL (0.1-1.2); Neutrophils Absolute Auto 6.1 x10*3/uL (2.0-8.3); Neutrophils Percent Auto 52.7 % (45-73); Platelet Count 368 X10*3/uL (160-400); Red Blood Count 5.38 X10*6/uL (4.60-5.80); Red Cell Distribution Width 13.4 % (11.0-16.0); SCAN SMEAR FLAG 1; White Blood Count 11.6 X10*3/uL (4.8-10.8)
[2024-03-10 10:59] LABS: SLIDE REVIEW VERIFIED
[2024-03-10 11:45] LABS: Alanine Aminotransferase 30 U/L (0-40); Albumin Level 4.3 g/dL (3.5-5.0); Alkaline Phosphatase 121 U/L (39-117); Anion Gap 12 (12-20); Aspartate Amino Transferase 24 U/L (5-37); Bilirubin Direct 0.3 mg/dL (0.0-0.5); Bilirubin Total 1.3 mg/dL (0.0-1.0); Blood Urea Nitrogen 14 mg/dL (9-16); Calcium 9.3 mg/dL (8.4-10.2); Carbon Dioxide 26 mmol/L (22-29); Chloride 107 mmol/L (96-108); Estimated Glomerular Filt Rate > 60; Glucose Random 133 mg/dL (60-115); Potassium 4.1 mmol/L (3.3-5.1); Sodium 141 mmol/L (135-145); Total Protein 7.5 g/dL (6.5-8.0)
[2024-03-10 11:49] LABS: Erythrocyte Sedimentation Rate 5 MM/HR (0-15)
== END 2024-03-10 09:12 | disposition home or self-care (01) ==
LOC: HO.LAB 09:11
PROVIDERS: PCP Internal Medicine; Visit Provider Hospitalist
DX: R91.8 Other nonspecific abnormal finding of lung field (principal)
CPT/HCPCS: 36415; 80048; 80076; 85025; 85652

== ENCOUNTER 2024-03-17 15:16 | Outpatient (REF) | payer OTHER, SELFPAY ==
--- NOTE | ~2024-03-17 | CT_ITS ---
EXAMINATION: CT CHEST WITHOUT CONTRAST CLINICAL INFORMATION: Abnormal findings of the lung. COMPARISON: CT chest dated September 15, 2023 TECHNIQUE: Multidetector volumetric CT imaging of the chest was done. Axial MIP volume rendering provided. Sagittal and coronal reformatted images were obtained. This CT examination was performed using dose optimization techniques as appropriate, variously including the following: *Automated exposure control *Adjustment of mA and/or kV according to patient size (this includes techniques or standardized protocols for targeted exams where dose is matched to indication/reason for exam; i.e. extremities or head) *Use of iterative reconstruction technique DLP: 185 mGy-cm FINDINGS: Submitted for interpretation on April 02, 2024. There is a 4 cm in marginated attenuation, left apical posterior segment, left upper lobe with volume loss. Post surgical/treatment changes in the posterior aspect of the left lung. Scarring/post treatment changes in the lingula region. No bronchiectasis. No honeycombing. No pleural effusion. No pneumothorax. Nonspecific prominent 1 cm lymph node, right pretracheal. No pericardial effusion. No pulmonary nodules or airspace disease, right lung. Respiratory airways patent. No aneurysm, thoracic aorta. Thyroid gland is not enlarged. No lymphadenopathy, axillary. 5 cm exophytic cyst, upper pole/midportion left kidney. 1 cm low density nodule left adrenal gland which measures -6 Hounsfield units. Status post cholecystectomy likely laparoscopic. No lytic or blastic lesions. Multilevel spondylosis. CT/CT chest wo IV con IMPRESSION: Overall stable since the most recent examination. Continued surveillance. 5 cm exophytic cyst, left kidney. Lipid rich adenoma, left adrenal gland. Fleischner guidelines were followed. Electronically signed by: Nathan Godinez MD 04/02/2024 09:16 AM EST
== END 2024-03-17 15:17 | disposition home or self-care (01) ==
LOC: HO.CT 15:16
PROVIDERS: PCP Physician Assistant; Visit Provider Hospitalist
DX: R91.8 Other nonspecific abnormal finding of lung field (principal)
CPT/HCPCS: 71250

== ENCOUNTER → 2024-03-17 15:20 | Outpatient (BNV) | payer OTHER, SELFPAY | PROVIDERS: PCP Physician Assistant; Visit Provider Radiology Diagnostic Radiology | DX: R91.8 Other nonspecific abnormal finding of lung field (principal) | CPT/HCPCS: 71250 ==

== ENCOUNTER 2024-03-18 15:33 | Outpatient (AMB) | payer OTHER, SELFPAY ==
--- NOTE | 2024-03-18 15:37 | MHC.PC.OV ---
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 Accompanied by: Spouse Allergies No Known Allergies Allergy (Verified 03/18/24 16:08) Medication List - Last Reconciled 03/18/24 by Regina England MD albuterol sulfate 90 mcg/actuation (ProAir HFA) 2 inhalations inhalation Q6H PRN 30 days amlodipine 5 mg PO DAILY 90 days cholecalciferol (vitamin D3) 50 mcg PO DAILY clotrimazole 1% 1 appl topical BID 4 weeks fluticasone propionate 50 mcg/actuation 0 mcg intranasal hvpqlywnovp-bmejcpeqa-jbdxwqix 100-62.5-25 mcg (Trelegy Ellipta) 1 inh inhalation DAILY 30 days gabapentin 600 mg (2 x 300 mg) PO BEDTIME lidocaine 5% (Lidoderm) 1 patch topical DAILY 30 days loratadine 10 mg PO DAILY meloxicam 15 mg PO DAILY modafinil (Provigil) 100 mg PO DAILY 30 days mycophenolate mofetil 1,000 mg (2 x 500 mg) PO BID 30 days tamsulosin 0.4 mg PO DAILY tramadol 50 mg PO DAILY PRN 30 days Tobacco use date assessed: 06/30/23 Dental Screening Dental Screen Date: 03/18/24 Did you have a dental visit in the last 12 months?: Yes Did you have a dental problem in the last 6 months where you did not have access to dental care?: No Was dental information given to patient?: Patient has dentist HPI HPI Comments History of Present Illness Details The patient is a 58-year-old male presenting with pulmonary nodules and hypertension. The nodules were initially identified by Dr. Don and Dr. Sullivan, with treatments including Mycophenolate Mofetil to manage or reduce the nodules. Previous assessments suggested a possible diagnosis of silicosis, but recent tests have not confirmed this. The patient has felt shortness of breath daily, exacerbated by wearing a mask at work. A CT scan was conducted recently to assess nodule progress. He experienced a medication interruption leading to elevated blood pressure, now being managed with amlodipine 5 mg. Gabapentin is used for discomfort, prescribed dosing is 2 tablets of 300 mg at night. Other medication regimens include ProAir as a rescue inhaler, vitamin D for supplementation, Tramadol as needed, loratadine for allergies, and occasional meloxicam. The patient denies any issues with urination despite considering Tamsulosin. Renal function has returned excellent results, and cholesterol was deemed excellent in October 2022. Random glucose was noted at 132, and recent labs indicated normal liver function. [facility] Medical History (Updated 03/18/24 @ 16:20 by Regina England MD) Chronic fatigue Silicosis Chest pain Lung mass Asthma-COPD overlap syndrome Dyspnea Pulmonary nodules Pneumoconiosis Asthma Necrotizing granulomatous inflammation of lung Organizing pneumonia Pulmonary nodules Surgical History History of lung surgery History of vasectomy Hx of cholecystectomy History of splenectomy History of knee surgery Family History Mother Embolism Father HTN (hypertension) Partial sight in both eyes Hypercholesteremia Sister Sleep apnea Kidney disease HTN (hypertension) Asthma Arthritis Paternal Grandmother Cancer Social History Housing: House Alcohol intake: never Patient Tobacco Use Status: Former Tobacco user Tobacco use type: Cigarette e-Cigarette/Vaping Use: Never Used Second Hand Smoke Exposure: No service: No Current occupational status: employed Current occupational exposures/hazards: No Cognitive needs: No Hearing needs: No Vision needs: Yes Questionnaire Thrive Questionnaire Date Thrive assessed: 06/30/23 GUILHERME-7 AMB Questionnaire GUILHERME-7 Date GUILHERME - 7 assessed: 06/30/23 Source: Developed by Drs. Cuco Grullon, Angie Gonzalez, Mark Davis and colleagues, with an educational agata from [employer]. Review of Systems Const All systems reviewed & are unremarkable except as noted in HPI and below Card Denies chest pain at rest, Denies chest pain with activity, Denies edema, Denies irregular heart rhythm, Denies claudication, Denies dyspnea, Denies dyspnea on exertion, Denies orthopnea, Denies paroxysmal nocturnal dyspnea and Denies slow heart rate Resp Denies cough, Denies dyspnea and Denies dyspnea on exertion GI Denies abdominal pain, Denies change in bowel habits, Denies excessive flatus, Denies nausea and Denies vomiting Neuro Denies behavioral changes and Denies lack of coordination Psych Denies behavioral changes Physical exam (Primary Care) Vital Signs: Last Vital Signs BP 150/90 H 03/18/24 15:39 BMI result Body Mass Index 34.1 BMI Assessment/Plan discussion: High BMI High, discussed plan: lifestyle, weight reduction, dietary and physical activity Tobacco/Smoking Status: Tobacco use Status Tobacco use date assessed 06/30/23 03/18/24 15:45 Patient Tobacco Use Status Former Tobacco user 03/18/24 15:45 Tobacco use type Cigarette 03/18/24 15:45 e-Cigarette/Vaping Use Never Used 03/18/24 15:45 Thrive Assessment: Date of Thrive Assessment Date Thrive assessed 06/30/23 03/18/24 15:45 Resp Effort & Inspection: normal respiratory effort Auscultation: clear to auscultation bilaterally Cardio Jugular venous distension: no JVD Rate: regular rate Rhythm: regular rhythm Heart sounds: S1 normal heart sound present and S2 normal heart sound present Extrem General: Yes full ROM Office Procedures Flu Questionnaire Does the patient have a severe egg allergy?: No Does the patient have severe life threatening allergies?: No Does the patient have a fever or illness today?: No Has the patient ever had Guillain-[place] Syndrome?: No Has the patient ever had any past reaction to a flu shot?: No Immunizations Fluarix Triv [id number] (PF) 45 mcg (15 mcg x 3)/0.5 mL IM syringe Performing Provider: Regina England MD [facility] [place] Administered by: THOR Foy on 03/18/24 16:33 Dose Route Admin Location Dispensed Lot Number Expiration Date [facility] 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 0.5 mL IM Left Deltoid 0.5 mL [id number] 10/25/24 [id number] [employer] VIS Given Date VIS Provided VIS Publication Date 03/18/24 Single Vaccine 20 Eligibility Eligibility Date Funding Source Not [facility] Eligible 03/18/24 Private Coding Level of Care Code Est Pt Level 4 (94380) Complex EM visit Add On G2211 Diagnoses Essential hypertension I10 Class 1 obesity with body mass index (BMI) of 34.0 to 34.9 in adult E66.811; Z68.34 Pulmonary nodules R91.8 Asthma-COPD overlap syndrome J44.9 Time Spent (min) 22 Assessment & Plan Assessment & Plan (1) Essential hypertension: Code(s): I10 - Essential (primary) hypertension Category: Medical (2) Class 1 obesity with body mass index (BMI) of 34.0 to 34.9 in adult: Code(s): E66.811 - Obesity, class 1; Z68.34 - Body mass index [BMI] 34.0-34.9, adult Category: Medical (3) Pulmonary nodules: Code(s): R91.8 - Other nonspecific abnormal finding of lung field Category: Medical (4) Asthma-COPD overlap syndrome: Code(s): J44.9 - Chronic obstructive pulmonary disease, unspecified Category: Medical Plan 1. Follow-up with pulmonology. Patient was informed and verbally consented to the use of an ambient scribe for clinic note documentation during this visit. During the visit, I discussed the ongoing management and treatment options for pulmonary nodules, including the use of Mycophenolate Mofetil as advised by Dr. Don and Dr. Sullivan. I clarified that recent tests ruled out silicosis, which was previously suspected. For hypertension, I addressed the temporary rise in blood pressure due to medication interruption and reinforced the need to stabilize medication routines. Options for managing obesity were outlined, with Wegovy as a potential treatment pending insurance approval. I explained the anticipated effects and possible side effects of this medication. The patient received a flu vaccine. Follow-up on pulmonary health and blood pressure was advised, and I encouraged communication with specialists involved. Orders: Orders Influenza [id number] Immunization Today Z23 - Encounter for immunization Medications: New semaglutide (weight loss) (Wegovy) administer weeks 1 through 4 of therapy 0.25 mg (0.5 mL) subcut QWEEK 4 weeks 2 mL 0RF E66.811 - Obesity, class 1, Z68.34 - Body mass index [BMI] 34.0-34.9, adult Patient Instructions: - Continue current medication regimen as directed. - Prepare for a follow-up appointment to reassess blood pressure in three weeks. - Adhere to dietary adjustments and attempt regular physical activity within respiratory limits. - Monitor and report any changes in breathing difficulties. 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 - Maintain regular communication with specialty providers involved in pulmonary care.
[2024-03-18 15:39] VITALS: BP 150/90; BMI 34.1
== END 2024-03-18 16:31 | disposition home or self-care (01) ==
PROVIDERS: PCP Physician Assistant; Visit Provider Internal Medicine
DX: I10 Essential (primary) hypertension (principal); E66.811 Obesity, class 1; J44.9 Chronic obstructive pulmonary disease, unspecified; Z68.34 Body mass index [BMI] 34.0-34.9, adult; R91.8 Other nonspecific abnormal finding of lung field

== ENCOUNTER → 2024-03-18 15:33 | Outpatient (BNVA) | payer OTHER, SELFPAY | PROVIDERS: PCP Physician Assistant; Visit Provider Internal Medicine | DX: I10 Essential (primary) hypertension (principal); E66.811 Obesity, class 1; Z68.34 Body mass index [BMI] 34.0-34.9, adult; R91.8 Other nonspecific abnormal finding of lung field; J44.9 Chronic obstructive pulmonary disease, unspecified; Z23 Encounter for immunization | CPT/HCPCS: 90471; 90656 ==

== ENCOUNTER → 2024-04-08 15:27 | Outpatient (BNVA) | payer OTHER, SELFPAY | PROVIDERS: PCP Physician Assistant ==

== ENCOUNTER 2024-04-09 15:29 | Outpatient (AMB) | payer OTHER, SELFPAY ==
[2024-04-09 15:51] VITALS: BP 132/70; PULSE 63; O2SAT 98; BMI 34.7
--- NOTE | 2024-04-09 15:51 | MHC.OFFVIS ---
Vital Signs 04/09/24 15:51 Height 5 ft 5 in Weight 208 lb 5.389 oz BMI 34.7 BP 132/70 Blood Pressure Location Lt brachial Position Sitting Pulse 63 Pulse Source Pulse Oximeter Pulse Oximetry (%) 98 Oxygen Delivery Method Room Air Intake Visit Reasons: Asthma Intake Note: please refill tramadol and lidocaine patch. 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 Apparently back in 2017 he had a shoulder injury and he went to get an x-ray. His x-ray was abnormal with the an abnormal finding on the lung field. Therefore he underwent a CT scan of the chest demonstrating a masslike density in the left upper lobe area. He also had other densities. He had a PET scan apparently was positive in had a biopsy at that time. CT guided biopsy demonstrated that he had some inflammation although nondiagnostic. Then everything was left alone until again 2018 when he was not feeling well. He was having some malaise symptoms along with not feeling well. Denied any respiratory symptoms the time. He underwent a repeat imaging study and subsequently repeat biopsy demonstrating now giant cell allergic reaction along with what appears to be a foreign body reaction. The patient all the really was referred to a thoracic surgery where he had a wedge resection. 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 Also to note that hypersensitivity panel was significantly elevated for a lot of mold. His microbiology from the wedge resections are still pending no growth today. No evidence of any acid-fast disease. He is tolerating the Breo inhaler and this appears to be helping. Denies any productive coughing or significant wheezing. He does have a dry cough at times and times he can not be barking nature. He does still get some discomfort to the left side does with the area that he had a surgery in addition to the fact that he does some heavy lifting at work. We did review his CT scan from November 2018 in addition to his CT scan from May 2019. The left upper lobe masslike densities pre similar in anything possibly little larger in size. The other nodular densities phone in the lingula and also in the left lower lobe have appear to be improved. Still has a emphysematous changes the unilateral side. Plan to repeat the CT scan sometime in February and at that time depending on the findings with decide to potentially do a bronchoscopy. We did review all the cultures from [facility] in all were negative for any mycobacterial infections or fungal infections. 05/24/2022 the patient is here for a pulmonary follow-up visit. He did start using the CPAP. The CPAP therapy has been affecting beneficial. He has been tolerating the BiPAP. However, he was not tolerating the mask that he did get from the [employer]. He did better with the mask that he had from the sleep study. Therefore I did request that which was stated N20 large mask. he does need to get a chinstrap to minimize under dryness of the mouth. The pain continues to be initial. 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 He knows to minimize the medication if possible. He also uses Lidoderm patch that to help him really get some relief as well. He has been using his respiratory medications in addition to the Daliresp. he will continue to struggle with his chronic respiratory complaints including the chest discomfort in the shortness of breath that he is slowly working to try to improved although it it is a significant limitation in a quality of life issue for him and his family. 10/07/2022 the patient is here for pulmonary follow-up visit. He has been having hard time lately with increasing shortness of breath. Complains of chest tightness and fatigue. Sometimes hard for him to get to work. At work he does wear a mask when needed. Although he still feels like he is getting exposed to significant amount of in organic dust in his work environment and also in other areas. I do believe the patient has likely more inflammatory changes.. The CT scan of the chest demonstrating interval increase in his airspace disease which is concerning. Will go ahead and treated with some prednisone to see if this helps decrease inflammation and hopefully his symptoms as well. 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 In view of the slight increase in size of his left upper lobe parenchymal process taking view important for additional evaluation. Will even consider re-biopsy of this area. Although, the initial biopsy was and still is painful. The patient also continues uses CPAP every night. CPAP therapy continues to be affecting beneficial. He does use it for more than 4 hours a night. He has been getting supplies readily. Pain control he has been using as needed tramadol and also will try the prednisone to decrease inflammation at this time. 11/07/2022 The patient is here for a pulmonary follow up. The patient feels like it is getting worse. Complains of worsening dyspnea worsening fatigue. Also having worsening left-sided chest discomfort. Based on his last CT scan there was some interval increase in the area of airspace disease. He did take the trial of prednisone but did not see any significant improvement. He does continue with his respiratory therapy and also he has been using the CPAP at nighttime. The CPAP therapy continues to be affecting beneficial. He is scheduled to go to [place] for 2nd opinion the end of November. At this point would be prudent in view of his worsening symptoms to have him stay out of work until that evaluation. 02/07/2023 the patient is here for pulmonary follow-up visit. Overall he is doing about the same. He is back to work. The patient needs to wear respirator. He is concerned about the worsening density in his lung. He was referred to [place] will be reviewing the pathology in the radiology and getting back to us. Depending on the findings will likely place him on immunomodulator for period time and then reimage closer to a year from his last CT scan which be in July 2023. we did talk about potentially methotrexate or mycophenolate as potential medications. Will have blood work today to assess his blood work prior to starting the medication. The patient continues uses CPAP every night CPAP therapy continues to be affecting beneficial when he does use it for more than 4 hours a night. Also continues with respiratory therapy. 05/09/2023 the patient is here for pulmonary follow-up visit. The patient has been working with respirator and seems to be working well. He is monitoring closely his weight he has had some weight gain that unfortunately is going to affect his respiratory capacity as well. He is looking in to getting involved in a weight loss program. In the meantime we have not heard back from the 2nd opinion on his pathology. Were hoping to get the pathology reading from [facility] in order to start him on immunomodulator therapy. At this point will go ahead and start him on CellCept and we will request those results from [place] to be provided as soon as possible. The patient's 's also going to be calling [place] to get those results. The patient is scheduled to undergo a repeat CT scan in July and therefore can see the response to the mycophenolate therapy. The patient will start the therapy on a lower dose and then will request blood work and a month's time. We did already have preliminary laboratory data which is reassuring for him to start the therapy at this time. He also continues uses CPAP. The CPAP therapy continues to be affecting beneficial. Does try to use it 4 hours a night, but has been short. 07/28/2023 the patient is here for a pulmonary follow-up visit. He continues to work. He has a hard time wearing the mask this is hard for him to breathe. But he understands that he can not be exposed to further inorganic does not through his lungs. Had been on the mycophenolate. But then started developing adverse symptoms. Hard to know if those from the medication. The plan was for him to stop the medication and then to start on a daily basis with 1 tablet. Then will kind of monitoring closely. However, the patient was not able to start the mycophenolate as of yet. Therefore he really has not taken it for too long. Will plan to do a CT scan after treatment with the mycophenolate. For that reason will go ahead and spoke the CT scan for couple months in order for him tolerate the medicine then be able to check the CT scan. If the patient develops any worsening symptoms though he is calm we can try to get the CT scan sooner. In addition to that it appears that [facility] finally received the pathology slides from [facility]. The [facility] patient health department will be looking at the slides and try to further address if there is any inorganic dust that is contributing to the underlying interstitial lung disease. He continues pleuritic pain the site of the surgery. Patient has been responding partially to tramadol as needed. Patient has also been using his CPAP. CPAP therapy continues to be affecting beneficial. He does try to use it 4 hours a night. His AHI is down to 0.3. therefore, will continue with the current CPAP therapy. 10/13/2023 the patient is here for a pulmonary follow-up visit. He continues to be pretty symptomatic. He has been on the mycophenolate. Initially he was started on 5 mg twice a day. However, he was having significant adverse effects from the medication and stopped it. During the last visit back in July we were able to restarted but keep him on a 500 mg dose daily. He did have a repeat CT scan of the chest which I personally reviewed with him and his . It appears that the masslike density in the left upper lobe is the same in the other nodular densities are also the same. Possibly some slight improvement in the left base. Although is not been officially read as of yet. At least is reassuring that does not appear to be getting worse unlike the previous CT scan. I do believe that the dose is too low we have to increase it. Will go ahead increase to 500 mg twice a day for 1 month and then subsequently increase it by 5 mg every month to a maximal g a day. Of which point we can request a repeat CT scan to see if there is any further degree of decreasing this mask. However, the patient continues to have significant adverse effects from the medication is going to be hard for him to function. We did talk about alternatives including other immunomodulator therapy to replace the mycophenolate in view of the adverse effects. However, it would require us to start beginning and also has his own pulmonary toxicities and other adverse effects that around them not encounter. I do hope that as he continues the medication he can develop tolerance. Will go and request blood work to make sure that there was no abnormalities to contraindicate increasing medication. Therefore we continue with the FMLA papers he can take a few days also specially if the drowsiness significant. If it becomes persistent then he may need to looking to potential disability in view of his ongoing chronic progressive disease. The patient appears to have significant limitations due to his ongoing comorbidities. He continues uses CPAP every night CPAP therapy continues to be affecting beneficial. He continues with respiratory therapy as prescribed. He has been very adherent. He still struggling with the postthoracotomy syndrome pain and the pain from the mask and does require pain medications as needed. I did speak to the occupational clinic in [place]. pathology did review the surgical slides. His pathology is really unclear although they definitely did not see any evidence of any severe kyphosis. Although my suspicion is that he does have some underlying worsening of his ongoing disease due to further inorganic dust exposure while at work. I do believe that the exposure is going to continue worsening his respiratory condition. Therefore, this point will go ahead and increase the mycophenolate knowing that he may develop worsening fatigue and it may decrease his functional capacity throughout the day with the hope that we can stop the progression of this masslike density from further irreversible damage in his lung. 12/15/2023 the patient is here for a pulmonary follow-up visit. He has been taking the CellCept 500 mg twice a day. Hopefully we can increase it further to a go 2 g a day. Increase slowly. He is still having daytime drowsiness and chronic fatigue. Has not started the Provigil just yet. He was started now. In addition to that he will undergo blood work prior to the next visit. His last CT scan was back in 09/15/2023. He has a masslike density. Will go ahead and repeat the CT scan of the chest sometime in the end of February after he is on his optimal dose of mycophenolate. In the meantime he is having difficulty walking. He is having difficulty with his shortness of breath and also arthritic 80s. He is requesting a placard. I did provide him paperwork in order for him to get him up stick her in view of her significant chest pain shortness of breath and ongoing comorbidities. Although he needs to continue to exercise. Because was polypharmacy will try to titrate down the Daliresp. Will decrease it down to every other day. If he does not tolerate that he can always increase it to the full dose of it felt like it was working well. 03/10/2024 the patient is here for pulmonary follow-up visit. He continues to take the CellCept. He has been able to increase it to 500 mg 3 times a day. He has a hard time with it because it caused significant fatigue difficult for him to function. He continues with the [place] papers. We did filament. He did not try the Provigil just yet. The patient will have blood work today to make sure that he is doing well. He is going to have a CT scan next month and will follow-up. But hoping that he can be on 4 tablets of the mycophenolate prior to the CT scan to see the full effect of the medication. If the masslike density has gotten worse then he will need additional testing for it. 04/09/2024 the patient is here for a pulmonary follow-up visit. Overall he is doing okay. Could not tolerate increasing the CellCept too much only 2 500 mg twice a day. Going up to the 2 tablets a day resulted in significant fatigue and GI discomfort. Therefore he stopped it. Will try again going up at this time by half a tablet to see if he can tolerate a little better. In the meantime he did have a CT scan of the chest which we personally reviewed and compared to his last 1. Looks pretty much about the same although maybe some areas show some slight improvement. Therefore explained to him that going up on the dose may be effective in decreasing this area little bit more. He continues to tolerate the Provigil for his daytime drowsiness and continues uses CPAP every night. CPAP therapy has been affecting beneficial in does use it for more than 4 hours a night. The patient also been using respiratory inhalers as prescribed and does require pain medication for the postoperative changes in the masslike density in the lung. 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 Pulmonary nodules Surgical History History of lung surgery History of vasectomy Hx of cholecystectomy History of splenectomy History of knee surgery Family History Mother Embolism Father HTN (hypertension) Partial sight in both eyes Hypercholesteremia Sister Sleep apnea Kidney disease HTN (hypertension) Asthma Arthritis Paternal Grandmother Cancer Social History Housing: House Alcohol intake: never Patient Tobacco Use Status: Former Tobacco user Tobacco use type: Cigarette e-Cigarette/Vaping Use: Never Used Second Hand Smoke Exposure: No service: No Current occupational status: employed Current occupational exposures/hazards: No Cognitive needs: No Hearing needs: No Vision needs: Yes Review of Systems Const Reports difficulty sleeping, Reports fatigue and Reports weight gain Eyes Denies loss of vision ENT Denies dizziness and Denies hearing loss Card Reports chest pain, Denies claudication, Denies leg edema, Denies lightheadedness, Reports palpitations, Reports dyspnea, Reports dyspnea on exertion and Denies orthopnea Resp Denies cough, Denies excessive phlegm production, Reports pain on inspiration, Reports pain with cough, Reports dyspnea, Reports dyspnea on exertion and Denies wheezing GI Denies abdominal pain, Denies hematochezia, Denies change in bowel habits, Denies change in stool character, Denies heartburn, Denies nausea and Denies vomiting Denies dysuria and Denies urinary frequency Musc Denies arthralgias, Denies muscle weakness, Denies numbness and Denies other (Frequent falls) Skin/Breast Denies nail changes and Denies rash Neuro Denies dizziness, Denies loss of vision, Denies memory loss and Denies numbness Psych Denies depression and Denies memory loss Endo Reports fatigue and Reports palpitations Aller/Immun Denies wheezing Physical Exam Vital Signs: Last Vital Signs Pulse 63 04/09/24 15:51 BP 132/70 04/09/24 15:51 Pulse Ox 98 04/09/24 15:51 Oxygen Delivery Method Room Air 04/09/24 15:51 BMI result Body Mass Index 34.7 Const General: alert Neck Neck: Yes normal visual inspection, Yes full ROM and Yes no lymphadenopathy Chest Chest palpation & inspection: tenderness rib Resp Auscultation: diminished lung sounds Cardio Rate: regular rate Rhythm: regular rhythm Heart sounds: S1 normal heart sound present and S2 normal heart sound present GI Palpation (GI): Soft to palpation and nontender Auscultation: normal bowel sounds Skin General skin exam: rashes and/or lesions noted Assessment & Plan Assessment & Plan (1) Lung mass: Code(s): R91.8 - Other nonspecific abnormal finding of lung field Category: Medical (2) Dyspnea: Code(s): R06.00 - Dyspnea, unspecified Category: Medical Qualifiers: Dyspnea type: dyspnea on exertion Qualified Code(s): R06.00 - Dyspnea, unspecified (3) Chest pain: Code(s): R07.9 - Chest pain, unspecified Category: Medical Qualifiers: Chest pain type: chest pain on breathing Qualified Code(s): R07.1 - Chest pain on breathing (4) CINTHIA (obstructive sleep apnea): Code(s): G47.33 - Obstructive sleep apnea (adult) (pediatric) Category: Medical (5) Chronic fatigue: Code(s): R53.82 - Chronic fatigue, unspecified Category: Medical Plan Needs to avoid all inorganic dust based on the fact that he already has evidence of interstitial lung disease. continue APAP to treat his severe CINTHIA, new mask N20 large with Chin strap continue Daliresp, decrease to every other day Continue Trelegy Continue Gabapentin at night Pain management: toradol as needed, lidoderm patch, gabapentin continue Cellcept 500mg BID, will try increasing by 1/2 tab to minimize side effects Bloodwork Modafinil 100mg daily F/U 1-2 months Orders: Orders Erythrocyte Sedimentation Rate 2 Months R91.8 - Other nonspecific abnormal finding of lung field Complete Blood Count Auto Diff 2 Months R91.8 - Other nonspecific abnormal finding of lung field Basic Metabolic Panel 2 Months R91.8 - Other nonspecific abnormal finding of lung field Liver Panel 2 Months R91.8 - Other nonspecific abnormal finding of lung field Medications: Refilled lidocaine 5% (Lidoderm) leave on most painful area for up to 12 hrs 1 patch topical DAILY 30 days 30 ea 6RF G89.12 - Acute post-thoracotomy pain tramadol 50 mg PO DAILY 30 days PRN 30 tabs 0RF pain R91.8 - Other nonspecific abnormal finding of lung field Coding Level of Care Code Est Pt Level 5 (26886) Diagnoses Lung mass R91.8 Dyspnea on exertion R06.00 Dyspnea type: dyspnea on exertion Chest pain on breathing R07.1 Chest pain type: chest pain on breathing CINTHIA (obstructive sleep apnea) G47.33 Chronic fatigue R53.82 Time Spent (min) 20
== END 2024-04-09 16:20 | disposition home or self-care (01) ==
PROVIDERS: PCP Physician Assistant; Visit Provider Hospitalist
DX: R91.8 Other nonspecific abnormal finding of lung field (principal); R06.00 Dyspnea, unspecified; R07.1 Chest pain on breathing; G47.33 Obstructive sleep apnea (adult) (pediatric); R53.82 Chronic fatigue, unspecified
CPT/HCPCS: 99214

== ENCOUNTER 2024-07-23 15:03 | Outpatient (REF) | payer OTHER, SELFPAY ==
[2024-07-23 17:12] LABS: Basophils Absolute Auto 0.1 X10*3/uL (0.0-0.2); Basophils Percent Auto 0.7 % (0-2); Eosinophils Absolute Auto 0.1 X10*3/uL (0.0-0.4); Eosinophils Percent Auto 1.1 % (0-4); Hematocrit 43.5 % (42.0-52.0); Hemoglobin 15.1 g/dl (14.0-18.0); Imm Gran Abs Auto 0.14 X10*3/uL (0.00-0.03); Imm Gran Pct Auto 1.2 % (0.0-0.4); Lymphocytes Absolute Auto 3.8 X10*3/uL (1.2-4.9); Lymphocytes Percent Auto 31.5 % (20-40); MANUAL DIFF FLAG SCAN; Mean Corpuscular HGB Conc 34.7 g/dl (31.0-36.0); Mean Corpuscular Hemoglobin 28.8 pg (27.0-33.0); Mean Corpuscular Volume 82.9 fL (80.0-98.0); Mean Platelet Volume 9.8 fL (9.4-12.4); Monocytes Absolute Auto 1.5 X10*3/uL (0.1-1.2); Monocytes Percent Auto 12.6 % (2-11); Neutrophils Absolute Auto 6.4 x10*3/uL (2.0-8.3); Neutrophils Percent Auto 52.9 % (45-73); Platelet Count 378 X10*3/uL (160-400); Red Blood Count 5.25 X10*6/uL (4.60-5.80); Red Cell Distribution Width 13.1 % (11.0-16.0); SCAN SMEAR FLAG 1; White Blood Count 12.1 X10*3/uL (4.8-10.8)
[2024-07-23 17:52] LABS: Erythrocyte Sedimentation Rate 3 MM/HR (0-15)
[2024-07-23 17:55] LABS: SLIDE REVIEW VERIFIED
[2024-07-23 18:13] LABS: Alanine Aminotransferase 52 U/L (0-40); Albumin Level 4.2 g/dL (3.5-5.0); Anion Gap 12 (12-20); Aspartate Amino Transferase 31 U/L (5-37); Bilirubin Direct 0.2 mg/dL (0.0-0.5); Bilirubin Total 0.9 mg/dL (0.0-1.0); Blood Urea Nitrogen 18 mg/dL (9-16); Calcium 9.4 mg/dL (8.4-10.2); Carbon Dioxide 24 mmol/L (22-29); Chloride 108 mmol/L (96-108); Cholesterol 168 mg/dL (<200); Estimated Glomerular Filt Rate > 60; Glucose Random 133 mg/dL (60-115); HDL Cholesterol 42 mg/dL (>40); LDL Cholesterol Calculated 71 mg/dL (<100); Potassium 3.9 mmol/L (3.3-5.1); Sodium 140 mmol/L (135-145); Total Protein 7.5 g/dL (6.5-8.0); Triglycerides 276 mg/dL (<150)
[2024-07-23 18:27] LABS: Alkaline Phosphatase 116 U/L (39-117)
[2024-07-25 00:18] LABS: IgA 665 mg/dL (47-310); IgG 1107 mg/dL (600-1640); IgM 44 mg/dL (50-300)
[2024-07-27 18:44] LABS: Angiotensin Converting Enzyme 39 U/L (9-67)
== END 2024-07-23 15:04 | disposition home or self-care (01) ==
LOC: HO.LAB 15:03
PROVIDERS: Internal Medicine; PCP Physician Assistant; Visit Provider Hospitalist
DX: J64 Unspecified pneumoconiosis (principal); R91.8 Other nonspecific abnormal finding of lung field; I10 Essential (primary) hypertension
CPT/HCPCS: 36415; 80048; 80061; 80076; 82164; 82784; 85025; 85652

== ENCOUNTER 2024-07-23 15:03 | Outpatient (AMB) | payer OTHER, SELFPAY ==
--- NOTE | 2024-07-23 15:13 | A.OFFVIS_ITS ---
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 Apparently back in 2017 he had a shoulder injury and he went to get an x-ray. His x-ray was abnormal with the an abnormal finding on the lung field. Therefore he underwent a CT scan of the chest demonstrating a masslike density in the left upper lobe area. He also had other densities. He had a PET scan apparently was positive in had a biopsy at that time. CT guided biopsy demonstrated that he had some inflammation although nondiagnostic. Then everything was left alone until again 2018 when he was not feeling well. He was having some malaise symptoms along with not feeling well. Denied any respiratory symptoms the time. He underwent a repeat imaging study and subsequently repeat biopsy demonstrating now giant cell allergic reaction along with what appears to be a foreign body reaction. The patient all the really was referred to a [facility] where he had a wedge resection. 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 Also to note that hypersensitivity panel was significantly elevated for a lot of mold. His microbiology from the wedge resections are still pending no growth today. No evidence of any acid-fast disease. He is tolerating the Breo inhaler and this appears to be helping. Denies any productive coughing or significant wheezing. He does have a dry cough at times and times he can not be barking nature. He does still get some discomfort to the left side does with the area that he had a surgery in addition to the fact that he does some heavy lifting at work. We did review his CT scan from November 2018 in addition to his CT scan from May 2019. The left upper lobe masslike densities pre similar in anything possibly little larger in size. The other nodular densities phone in the lingula and also in the left lower lobe have appear to be improved. Still has a emphysematous changes the unilateral side. Plan to repeat the CT scan sometime in February and at that time depending on the findings with decide to potentially do a bronchoscopy. We did review all the cultures from [facility] in all were negative for any mycobacterial infections or fungal infections. 05/24/2022 the patient is here for a pulmonary follow-up visit. He did start using the CPAP. The CPAP therapy has been affecting beneficial. He has been tolerating the BiPAP. However, he was not tolerating the mask that he did get from the [facility]. He did better with the mask that he had from the sleep study. Therefore I did request that which was stated N20 large mask. he does need to get a chinstrap to minimize under dryness of the mouth. The pain continues to be initial. 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 He knows to minimize the medication if possible. He also uses Lidoderm patch that to help him really get some relief as well. He has been using his respiratory medications in addition to the Daliresp. he will continue to struggle with his chronic respiratory complaints including the chest discomfort in the shortness of breath that he is slowly working to try to improved although it it is a significant limitation in a quality of life issue for him and his family. 10/07/2022 the patient is here for pulmonary follow-up visit. He has been having hard time lately with increasing shortness of breath. Complains of chest tightness and fatigue. Sometimes hard for him to get to work. At work he does wear a mask when needed. Although he still feels like he is getting exposed to significant amount of in organic dust in his work environment and also in other areas. I do believe the patient has likely more inflammatory changes.. The CT scan of the chest demonstrating interval increase in his airspace disease which is concerning. Will go ahead and treated with some prednisone to see if this helps decrease inflammation and hopefully his symptoms as well. 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 In view of the slight increase in size of his left upper lobe parenchymal process taking view important for additional evaluation. Will even consider re-biopsy of this area. Although, the initial biopsy was and still is painful. The patient also continues uses CPAP every night. CPAP therapy continues to be affecting beneficial. He does use it for more than 4 hours a night. He has been getting supplies readily. Pain control he has been using as needed tramadol and also will try the prednisone to decrease inflammation at this time. 11/07/2022 The patient is here for a pulmonary follow up. The patient feels like it is getting worse. Complains of worsening dyspnea worsening fatigue. Also having worsening left-sided chest discomfort. Based on his last CT scan there was some interval increase in the area of airspace disease. He did take the trial of prednisone but did not see any significant improvement. He does continue with his respiratory therapy and also he has been using the CPAP at nighttime. The CPAP therapy continues to be affecting beneficial. He is scheduled to go to [facility] for 2nd opinion the end of November. At this point would be prudent in view of his worsening symptoms to have him stay out of work until that evaluation. 02/07/2023 the patient is here for pulmonary follow-up visit. Overall he is doing about the same. He is back to work. The patient needs to wear respirator. He is concerned about the worsening density in his lung. He was referred to [facility] [place] will be reviewing the pathology in the radiology and getting back to us. Depending on the findings will likely place him on immunomodulator for period time and then reimage closer to a year from his last CT scan which be in July 2023. we did talk about potentially methotrexate or mycophenolate as potential medications. Will have blood work today to assess his blood work prior to starting the medication. The patient continues uses CPAP every night CPAP therapy continues to be affecting beneficial when he does use it for more than 4 hours a night. Also continues with respiratory therapy. 05/09/2023 the patient is here for pulmonary follow-up visit. The patient has been working with respirator and seems to be working well. He is monitoring closely his weight he has had some weight gain that unfortunately is going to affect his respiratory capacity as well. He is looking in to getting involved in a weight loss program. In the meantime we have not heard back from the 2nd opinion on his pathology. Were hoping to get the pathology reading from [facility] in order to start him on immunomodulator therapy. At this point will go ahead and start him on CellCept and we will request those results from [facility] to be provided as soon as possible. The patient's 's also going to be calling [facility] to get those results. The patient is scheduled to undergo a repeat CT scan in July and therefore can see the response to the mycophenolate therapy. The patient will start the therapy on a lower dose and then will request blood work and a month's time. We did already have preliminary laboratory data which is reassuring for him to start the therapy at this time. He also continues uses CPAP. The CPAP therapy continues to be affecting beneficial. Does try to use it 4 hours a night, but has been short. 07/28/2023 the patient is here for a pulmonary follow-up visit. He continues to work. He has a hard time wearing the mask this is hard for him to breathe. But he understands that he can not be exposed to further inorganic does not through his lungs. Had been on the mycophenolate. But then started developing adverse symptoms. Hard to know if those from the medication. The plan was for him to stop the medication and then to start on a daily basis with 1 tablet. Then will kind of monitoring closely. However, the patient was not able to start the mycophenolate as of yet. Therefore he really has not taken it for too long. Will plan to do a CT scan after treatment with the mycophenolate. For that reason will go ahead and spoke the CT scan for couple months in order for him tolerate the medicine then be able to check the CT scan. If the patient develops any worsening symptoms though he is calm we can try to get the CT scan sooner. In addition to that it appears that [facility] finally received the pathology slides from [facility]. The [facility] department will be looking at the slides and try to further address if there is any inorganic dust that is contributing to the underlying interstitial lung disease. He continues pleuritic pain the site of the surgery. Patient has been responding partially to tramadol as needed. Patient has also been using his CPAP. CPAP therapy continues to be affecting beneficial. He does try to use it 4 hours a night. His AHI is down to 0.3. therefore, will continue with the current CPAP therapy. 10/13/2023 the patient is here for a pulmonary follow-up visit. He continues to be pretty symptomatic. He has been on the mycophenolate. Initially he was started on 5 mg twice a day. However, he was having significant adverse effects from the medication and stopped it. During the last visit back in July we were able to restarted but keep him on a 500 mg dose daily. He did have a repeat CT scan of the chest which I personally reviewed with him and his . It appears that the masslike density in the left upper lobe is the same in the other nodular densities are also the same. Possibly some slight improvement in the left base. Although is not been officially read as of yet. At least is reassuring that does not appear to be getting worse unlike the previous CT scan. I do believe that the dose is too low we have to increase it. Will go ahead increase to 500 mg twice a day for 1 month and then subsequently increase it by 5 mg every month to a maximal g a day. Of which point we can request a repeat CT scan to see if there is any further degree of decreasing this mask. However, the patient continues to have significant adverse effects from the medication is going to be hard for him to function. We did talk about alternatives including other immunomodulator therapy to replace the mycophenolate in view of the adverse effects. However, it would require us to start beginning and also has his own pulmonary toxicities and other adverse effects that around them not encounter. I do hope that as he continues the medication he can develop tolerance. Will go and request blood work to make sure that there was no abnormalities to contraindicate increasing medication. Therefore we continue with the FMLA papers he can take a few days also specially if the drowsiness significant. If it becomes persistent then he may need to looking to potential disability in view of his ongoing chronic progressive disease. The patient appears to have significant limitations due to his ongoing comorbidities. He continues uses CPAP every night CPAP therapy continues to be affecting beneficial. He continues with respiratory therapy as prescribed. He has been very adherent. He still struggling with the postthoracotomy syndrome pain and the pain from the mask and does require pain medications as needed. I did speak to the occupational clinic in [place]. pathology did review the surgical slides. His pathology is really unclear although they definitely did not see any evidence of any severe kyphosis. Although my suspicion is that he does have some underlying worsening of his ongoing disease due to further inorganic dust exposure while at work. I do believe that the exposure is going to continue worsening his respiratory condition. Therefore, this point will go ahead and increase the mycophenolate knowing that he may develop worsening fatigue and it may decrease his functional capacity throughout the day with the hope that we can stop the progression of this masslike density from further irreversible damage in his lung. 12/15/2023 the patient is here for a pulmonary follow-up visit. He has been taking the CellCept 500 mg twice a day. Hopefully we can increase it further to a go 2 g a day. Increase slowly. He is still having daytime drowsiness and chronic fatigue. Has not started the Provigil just yet. He was started now. In addition to that he will undergo blood work prior to the next visit. His last CT scan was back in 09/15/2023. He has a masslike density. Will go ahead and repeat the CT scan of the chest sometime in the end of February after he is on his optimal dose of mycophenolate. In the meantime he is having difficulty walking. He is having difficulty with his shortness of breath and also arthritic 80s. He is requesting a placard. I did provide him paperwork in order for him to get him up stick her in view of her significant chest pain shortness of breath and ongoing comorbidities. Although he needs to continue to exercise. Because was polypharmacy will try to titrate down the Daliresp. Will decrease it down to every other day. If he does not tolerate that he can always increase it to the full dose of it felt like it was working well. 03/10/2024 the patient is here for pulmonary follow-up visit. He continues to take the CellCept. He has been able to increase it to 500 mg 3 times a day. He has a hard time with it because it caused significant fatigue difficult for him to function. He continues with the [place] papers. We did filament. He did not try the Provigil just yet. The patient will have blood work today to make sure that he is doing well. He is going to have a CT scan next month and will follow-up. But hoping that he can be on 4 tablets of the mycophenolate prior to the CT scan to see the full effect of the medication. If the masslike density has gotten worse then he will need additional testing for it. 04/09/2024 the patient is here for a pulmonary follow-up visit. Overall he is doing okay. Could not tolerate increasing the CellCept too much only 2 500 mg twice a day. Going up to the 2 tablets a day resulted in significant fatigue and GI discomfort. Therefore he stopped it. Will try again going up at this time by half a tablet to see if he can tolerate a little better. In the m he did have a CT scan of the chest which we personally reviewed and compared to his last 1. Looks pretty much about the same although maybe some areas show some slight improvement. Therefore explained to him that going up on the dose may be effective in decreasing this area little bit more. He continues to tolerate the Provigil for his daytime drowsiness and continues uses CPAP every night. CPAP therapy has been affecting beneficial in does use it for more than 4 hours a night. The patient also been using respiratory inhalers as prescribed and does require pain medication for the postoperative changes in the masslike density in the lung. 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 07/23/2024 the patient is here for a pulmonary follow-up visit. The patient overall has been doing fair. He has been still complaining of the same similar symptoms shortness of breath chest discomfort fatigue. He is tolerating the medications of this hard for him to tolerate the CellCept because it makes him more fatigued. He has also felt some palpitations. He has been taking some pxwa-slw-mybezzz stimulants. So I told him that he either has to take the blew-vid-txvunwf stimulants or the Provigil but not both. He has had some palpitations already. He continues uses CPAP at night. CPAP therapy continues to be affecting beneficial he does use it for more than 4 hours a night. He did have blood work back in February he did have some slight elevations in the total bili in the alkaline phosphatase so therefore will have blood work done today. He has also had an elevated IgE in the past will recheck those as well. He is continuing to receive the assistance through the [employer] paperwork. For his chronic condition. Will follow-up in 3 months with PFTs. In the meantime will increase his inhaled cortical steroid to Trelegy 200 since he is having some increased diminished breath sounds. He is wearing a mask while working training dim minimize his exposure to the dust in the workplace. 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 Pulmonary nodules Surgical History History of lung surgery History of vasectomy Hx of cholecystectomy History of splenectomy History of knee surgery Family History Mother Embolism Father HTN (hypertension) Partial sight in both eyes Hypercholesteremia Sister Sleep apnea Kidney disease HTN (hypertension) Asthma Arthritis Paternal Grandmother Cancer Social History Housing: House Alcohol intake: never Patient Tobacco Use Status: Former Tobacco user Tobacco use type: Cigarette e-Cigarette/Vaping Use: Never Used Second Hand Smoke Exposure: No service: No Current occupational status: employed Current occupational exposures/hazards: No Cognitive needs: No Hearing needs: No Vision needs: Yes Review of Systems Const Reports difficulty sleeping, Reports fatigue and Reports weight gain Eyes Denies loss of vision ENT Denies dizziness and Denies hearing loss Card Reports chest pain, Denies claudication, Denies leg edema, Denies lightheadedness, Reports palpitations, Reports dyspnea, Reports dyspnea on exertion and Denies orthopnea Resp Denies cough, Denies excessive phlegm production, Reports pain on inspiration, Reports pain with cough, Reports dyspnea, Reports dyspnea on exertion and Denies wheezing GI Denies abdominal pain, Denies hematochezia, Denies change in bowel habits, Denies change in stool character, Denies heartburn, Denies nausea and Denies vomiting Denies dysuria and Denies urinary frequency Musc Denies arthralgias, Denies muscle weakness, Denies numbness and Denies other (Frequent falls) Skin/Breast Denies nail changes and Denies rash Neuro Denies dizziness, Denies loss of vision, Denies memory loss and Denies numbness Psych Denies depression and Denies memory loss Endo Reports fatigue and Reports palpitations Aller/Immun Denies wheezing Physical Exam Vital Signs: Last Vital Signs Pulse 84 07/23/24 15:14 BP 130/72 07/23/24 15:14 Pulse Ox 97 07/23/24 15:14 Oxygen Delivery Method Room Air 07/23/24 15:14 BMI result Body Mass Index 34.8 Const General: alert Neck Neck: Yes normal visual inspection, Yes full ROM and Yes no lymphadenopathy Chest Chest palpation & inspection: tenderness rib Resp Auscultation: diminished lung sounds Cardio Rate: regular rate Rhythm: regular rhythm Heart sounds: S1 normal heart sound present and S2 normal heart sound present GI Palpation (GI): Soft to palpation and nontender Auscultation: normal bowel sounds Skin General skin exam: rashes and/or lesions noted Assessment & Plan Assessment & Plan (1) 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 CT chest without any worsening. But no improvement. Code(s): J64 - Unspecified pneumoconiosis Category: Medical (2) Lung mass: Code(s): R91.8 - Other nonspecific abnormal finding of lung field Category: Medical (3) Dyspnea: Code(s): R06.00 - Dyspnea, unspecified Category: Medical Qualifiers: Dyspnea type: dyspnea on exertion Qualified Code(s): R06.00 - Dyspnea, unspecified (4) Chest pain: Code(s): R07.9 - Chest pain, unspecified Category: Medical Qualifiers: Chest pain type: chest pain on breathing Qualified Code(s): R07.1 - Chest pain on breathing (5) CINTHIA (obstructive sleep apnea): Code(s): G47.33 - Obstructive sleep apnea (adult) (pediatric) Category: Medical (6) Chronic fatigue: Code(s): R53.82 - Chronic fatigue, unspecified Category: Medical Plan Needs to avoid all inorganic dust based on the fact that he already has evide nce of interstitial lung disease. continue APAP to treat his severe CINTHIA, mask N20 large with Chin strap continue Daliresp, decrease to every other day Continue Trelegy, increase 100->200mcg Continue Gabapentin at night Pain management: toradol as needed, lidoderm patch, gabapentin continue Cellcept 500mg BID, will try increasing by 1/2 tab to minimize side effects Bloodwork Modafinil 100mg daily (holding while tried herbal therapies) F/U 1-2 months Orders: Orders Immunoglobulins,IgG IgA IgM 07/23/24 J64 - Unspecified pneumoconiosis, R91.8 - Other nonspecific abnormal finding of lung field Basic Metabolic Panel 07/23/24 J64 - Unspecified pneumoconiosis, R91.8 - Other nonspecific abnormal finding of lung field Angiotensin Converting Enzyme 07/23/24 J64 - Unspecified pneumoconiosis, R91.8 - Other nonspecific abnormal finding of lung field PFT pulmonary function test 07/23/24 J64 - Unspecified pneumoconiosis, R91.8 - Other nonspecific abnormal finding of lung field Erythrocyte Sedimentation Rate 07/23/24 J64 - Unspecified pneumoconiosis, R91.8 - Other nonspecific abnormal finding of lung field Complete Blood Count Auto Diff 07/23/24 J64 - Unspecified pneumoconiosis, R91.8 - Other nonspecific abnormal finding of lung field Liver Panel 07/23/24 J64 - Unspecified pneumoconiosis, R91.8 - Other nonspecif ic abnormal finding of lung field Medications: New [id number] 200-62.5-25 mcg (Trelegy Ellipta) 1 inh inhalation DAILY 60 ea 12RF 30 days Coding Level of Care Code Est Pt Level 5 (17088) Complex EM visit Add On G2211 Diagnoses Pneumoconiosis J64 Lung mass R91.8 Dyspnea on exertion R06.00 Dyspnea type: dyspnea on exertion Chest pain on breathing R07.1 Chest pain type: chest pain on breathing CINTHIA (obstructive sleep apnea) G47.33 Chronic fatigue R53.82 Time Spent (min) 60
[2024-07-23 15:14] VITALS: BP 130/72; PULSE 84; O2SAT 97; BMI 34.8
== END 2024-07-23 15:52 | disposition home or self-care (01) ==
LOC: HO.HPS 15:03
PROVIDERS: PCP Physician Assistant; Visit Provider Hospitalist
DX: J64 Unspecified pneumoconiosis (principal); R91.8 Other nonspecific abnormal finding of lung field; R06.00 Dyspnea, unspecified; R07.1 Chest pain on breathing; G47.33 Obstructive sleep apnea (adult) (pediatric); R53.82 Chronic fatigue, unspecified
CPT/HCPCS: 99215

== ENCOUNTER 2024-08-17 12:26 | Outpatient (AMB) | payer OTHER, SELFPAY ==
[2024-08-17 12:31] VITALS: BP 140/80; PULSE 73; O2SAT 97; BMI 34.6
--- NOTE | 2024-08-17 12:31 | A.OFFPC_ITS ---
Vital Signs 08/17/24 12:31 Height 5 ft 5 in Weight 208 lb BMI 34.6 BP 140/80 H Blood Pressure Location Lt brachial Position Sitting Pulse 73 Pulse Source Pulse Oximeter Pulse Oximetry (%) 97 Oxygen Delivery Method Room Air Intake Visit Reasons: follow up lung surgery Permit Coordinator Required: No Accompanied by: Spouse Allergies No Known Allergies Allergy (Verified 08/17/24 12:40) Medication List - Last Reconciled 08/17/24 by Regina England MD albuterol sulfate 90 mcg/actuation (ProAir HFA) 2 inhalations inhalation Q6H PRN 30 days amlodipine 5 mg PO DAILY 90 days cholecalciferol (vitamin D3) 50 mcg PO DAILY clotrimazole 1% 1 appl topical BID 4 weeks fluticasone propionate 50 mcg/actuation 0 mcg intranasal gzzckacbind-cyktfqfxq-kynemgpo 100-62.5-25 mcg (Trelegy Ellipta) 1 inh inhalation DAILY 30 days rpiqyqmjxsc-bmvqjxwrr-pdceitwm 200-62.5-25 mcg (Trelegy Ellipta) 1 inh inhalation DAILY 30 days gabapentin 600 mg (2 x 300 mg) PO BEDTIME lidocaine 5% (Lidoderm) 1 patch topical DAILY 30 days loratadine 10 mg PO DAILY meloxicam 15 mg PO DAILY modafinil (Provigil) 100 mg PO DAILY 30 days mycophenolate mofetil 1,000 mg (2 x 500 mg) PO BID 30 days tamsulosin 0.4 mg PO DAILY PRN tramadol 50 mg PO DAILY PRN 30 days Tobacco use date assessed: 08/17/24 Dental Screening Dental Screen Date: 08/17/24 Did you have a dental visit in the last 12 months?: Yes Did you have a dental problem in the last 6 months where you did not have access to dental care?: No Was dental information given to patient?: Patient has dentist HPI HPI Comments History of Present Illness Details The patient is a 58-year-old male presenting with a cyst in the left kidney and a lipid-rich adrenal adenoma. These findings arose during a follow-up with a reinforcing steel worker wire mesh, where a CT scan confirmed the presence of these conditions. The patient's medical background includes pneumoconiosis and asthma- COPD overlap syndrome among others, which he manages with a regimen of medications including inhalers and antihypertensives. He reports dealing with pain from varicose veins in the neck region and sometimes uses tramadol for pain relief. The need for further specialist evaluation has been discussed, given the presence of the kidney cyst and adrenal adenoma. The patient understands the benign nature of these findings but acknowledges the importance of monitoring them. Referral to urology and endocrinology has been suggested as follow-up steps. 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 Pulmonary nodules Surgical History History of lung surgery History of vasectomy Hx of cholecystectomy History of splenectomy History of knee surgery Family History Mother Embolism Father HTN (hypertension) Partial sight in both eyes Hypercholesteremia Sister Sleep apnea Kidney disease HTN (hypertension) Asthma Arthritis Paternal Grandmother Cancer Social History Housing: House Alcohol intake: never Patient Tobacco Use Status: Former Tobacco user Tobacco use type: Cigarette e-Cigarette/Vaping Use: Never Used Second Hand Smoke Exposure: No service: No Current occupational status: employed Current occupational exposures/hazards: No Cognitive needs: No Hearing needs: No Vision needs: Yes Questionnaire PHQ-9 Over the last 2 weeks, how often have you been bothered by any of the following problems? 1. Little interest or pleasure in doing things: not at all 2. Feeling down, depressed, or hopeless: not at all 3. Trouble falling or staying asleep, or sleeping too much: not at all 4. Feeling tired or having little energy: not at all 5. Poor appetite or overeating: not at all 6. Feeling bad about yourself - or that you are a failure or have let yourself or your family down: not at all 7. Trouble concentrating on things, such as reading the newspaper or watching television: not at all 8. Moving or speaking so slowly that other people could have noticed. Or the opposite - being so fidgety or restless that you have been moving around a lot more than usual: not at all 9. Thoughts that you would be better off or of hurting yourself in some way: not at all Total score: 0 Depression Screening Interpretation: Negative Depression Screening Done: Yes 37671 - PHQ-9 Billing: Yes Source: Developed by Drs. Cuco Grullon, Angie Gonzalez, Mark Davis and colleagues, with an educational agata from [employer]. Thrive Questionnaire Date Thrive assessed: 08/17/24 I am a: Patient What is your living situation today?: I have a steady place to live Within the past 12 months, did the food you bought not last and you didn't have the money to get more?: Never true Within the past 12 months, did you worry whether your food would run out before you got money to buy more?: Never true Do you have trouble paying for medicines?: No Do you have trouble getting transportation to medical appointments?: No Do you have trouble paying your heating and electricity bill?: No Do you have trouble taking care of your child, family member or friend?: No Do you have trouble with day-to-day activities such as bathing, preparing meals, shopping, managing finances, etc.?: No Are you currently unemployed and looking for a job?: No Are you interested in more education?: No Please select the resources that you would like help with: None Currently or been in a relationship where the following occur: No concerns reported THRIVE Score: 0 AUDIT C Alcohol Use Questionnaire (AUDIT-C) 1. How often do you have a drink containing alcohol?: Never Total Score: 0 Score Reviewed/Action Taken: No GUILHERME-7 AMB Questionnaire GUILHERME-7 Date GUILHERME - 7 assessed: 08/17/24 Feeling nervous, anxious, or on edge: 0 = Not at all Not being able to stop or control worryin = Not at all Worrying too much about different things: 0 = Not at all Trouble relaxin = Not at all Being so restless that it is hard to sit still: 0 = Not at all Becoming easily annoyed or irritable: 0 = Not at all Feeling afraid as if something awful might happen: 0 = Not at all Total GUILHERME-7 score (0-4 normal; 5-9 mild; 10-14 moderate; 15-21 severe): 0 Source: Developed by Drs. Cuco Grullon, Angie Gonzalez, Mark Davis and colleagues, with an educational agata from [employer]. GUILHERME-7 Assessment Billing GUILHERME-7 Assessment Tool: GUILHERME-7 Assessment 85058 Review of Systems Const All systems reviewed & are unremarkable except as noted in HPI and below Card Denies chest pain at rest, Denies chest pain with activity, Denies edema, Denies irregular heart rhythm, Denies claudication, Denies dyspnea, Denies dyspnea on exertion, Denies orthopnea, Denies paroxysmal nocturnal dyspnea and Denies slow heart rate Resp Denies cough, Denies dyspnea and Denies dyspnea on exertion GI Denies abdominal pain, Denies change in bowel habits, Denies excessive flatus, Denies nausea and Denies vomiting Denies urinary hesitancy, Denies urinary incontinence and Denies urinary urgency Neuro Denies lack of coordination Physical exam (Primary Care) Vital Signs: Last Vital Signs Pulse 73 08/17/24 12:31 BP 140/80 H 08/17/24 12:31 Pulse Ox 97 08/17/24 12:31 Oxygen Delivery Method Room Air 08/17/24 12:31 BMI result Body Mass Index 34.6 BMI Assessment/Plan discussion: High BMI High, discussed plan: lifestyle, weight reduction, dietary and physical activity Tobacco/Smoking Status: Tobacco use Status Tobacco use date assessed 08/17/24 08/17/24 12:37 Patient Tobacco Use Status Former Tobacco user 08/17/24 12:37 Tobacco use type Cigarette 08/17/24 12:37 e-Cigarette/Vaping Use Never Used 08/17/24 12:37 PHQ-9: PHQ-9 Score PHQ-9: Total score 0 08/17/24 13:52 Depression Screening Interpretation: Negative Thrive Assessment: Date of Thrive Assessment Date Thrive assessed 08/17/24 08/17/24 12:37 Currently or been in a relationship where the following occur: No concerns reported Resp Effort & Inspection: normal respiratory effort Auscultation: clear to auscultation bilaterally Cardio Jugular venous distension: no JVD Rate: regular rate Rhythm: regular rhythm Heart sounds: S1 normal heart sound present and S2 normal heart sound present Extrem General: Yes full ROM Coding Level of Care Code Est Pt Level 4 (54400) Complex EM visit Add On G2211 Diagnoses Renal cyst N28.1 Adrenal adenoma D35.00 Pneumoconiosis J64 Essential hypertension I10 Hypertension type: essential hypertension Asthma-COPD overlap syndrome J44.9 Necrotizing granulomatous inflammation of lung M31.30 Organizing pneumonia J84.89 Venous (peripheral) insufficiency I87.2 Additional Codes GUILHERME-7 Assessment Billing - GUILHERME-7 Assessment Tool: GUILHERME-7 Assessment 63886 ([id number]) PHQ-9 - 31190 - PHQ-9 Billing: Yes ([id number]) Time Spent (min) 22 Assessment & Plan Assessment & Plan (1) Renal cyst: Code(s): N28.1 - Cyst of kidney, acquired Category: Medical (2) Adrenal adenoma: Code(s): D35.00 - Benign neoplasm of unspecified adrenal gland Category: Medical (3) 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 CT chest without any worsening. But no improvement. Code(s): J64 - Unspecified pneumoconiosis Category: Medical (4) Hypertension: Comment: Elevated Code(s): I10 - Essential (primary) hypertension Category: Medical Qualifiers: Hypertension type: essential hypertension Qualified Code(s): I10 - Essential (primary) hypertension (5) Asthma-COPD overlap syndrome: Code(s): J44.9 - Chronic obstructive pulmonary disease, unspecified Category: Medical (6) Necrotizing granulomatous inflammation of lung: Code(s): M31.30 - Brittany's granulomatosis without renal involvement Category: Medical (7) Organizing pneumonia: Code(s): J84.89 - Other specified interstitial pulmonary diseases Category: Medical (8) Venous (peripheral) insufficiency: Code(s): I87.2 - Venous insufficiency (chronic) (peripheral) Category: Medical Plan In response to the presence of a cyst in the left kidney and a lipid-rich adrenal adenoma, I have advised appropriate follow-up with urology and endocrinology specialists to monitor these findings further. While both conditions appear stable without immediate threat, continued assessment through imaging studies, including CT scans of the abdomen, is necessary. We will also evaluate renal function through laboratory tests to maintain overall health. The patient's current treatment for pneumoconiosis and asthma-COPD will continue as prescribed, with a topical medication provided for the management of pain from varicose veins. Adjustments to his medication regimen will be considered if needed based on the specialist evaluations. The patient is informed about the importance of regular follow-up appointments and monitoring symptoms as they arise. Patient was informed and verbally consented to the use of an ambient scribe for clinic note documentation during this visit. In today's visit, I emphasized the need for specialist evaluation concerning the cyst in the left kidney and lipid-rich adrenal adenoma. We discussed the generally benign nature of these findings but also the importance of ongoing surveillance through imaging studies like abdominal CT scans to monitor any changes. The patient was receptive to specialist referrals to urology and endocrinology. Our discussion included the management of current conditions such as pneumoconiosis and asthma-COPD, outlining the continued use of medications like Amlodipine and inhalers. Pain relief from varicose veins will be addressed with a topical cream, and plans for renal function testing were confirmed. We prioritized the importance of follow-ups and reassured the patient that his overall health maintenance would benefit from this approach. Orders: Orders Creatinine Today N28.1 - Cyst of kidney, acquired CT abdomen pelvis wo IV con Today D35.00 - Benign neoplasm of unspecified adrenal gland Blood Urea Nitrogen Today N28.1 - Cyst of kidney, acquired Referrals Urology Referral N28.1 - Cyst of kidney, acquired Endocrinology Referral D35.00 - Benign neoplasm of unspecified adrenal gland Patient Instructions: - Follow up with urology for kidney cyst evaluation. - Follow up with endocrinology for adrenal adenoma evaluation. - Continue prescribed medications for pneumoconiosis and asthma-COPD management. - Use topical cream as directed for varicose vein pain relief. - Attend scheduled laboratory tests for renal function monitoring. - Notify of any worsening symptoms or changes in condition.
--- OUTSIDE RECORDS SUMMARY | 2024-08-17 14:46 | XMS_ITS | Encounter Summary ---
Author Organization [facility] Address [address] [place] [address] Care Team Providers Care Boat Rigger Name Role Phone Jaquan Red MD Primary Care Provider Manuel Pruitt Primary Care Provider [phone] Encounter Details Date Type Department Care Team Description 12/05/2016 Orders Only Medical Records [address] [place] [id number] Geo De La Cruz MD [address] [place] [id number] Tobacco use disorder; Pulmonary nodule Social History Tobacco Use Types Packs/Day Years Used Date Smoking Tobacco: Former Cigarettes 1 30 Q uit: 10/21/2016 Comments:1 pk a day for last 3 yrs, prior 2pk. Alcohol Use Standard Drinks/Week Comments Not Asked 0 (1 standard drink = 0.6 oz pur e alcohol) Sex Assigned at Date Recorded Not on file Job Start Date Occupation Industry Not on file Not on file Not on file documented as of this encounter Plan of Treatment Not on file documented as of this encounter Procedures Procedure Name Priority Date/Time Associated Diagnosis Comments PET SCAN/CT SCAN STAT 11/27/2016 Tobacco use disorder Pulmonary nodule documented in this encounter Results * PET SCAN/CT SCAN (11/27/2016) Geo De La Cruz MD PET SCANS documented in this encounter Visit Diagnoses Diagnosis Tobacco use disorder Pulmonary nodule Solitary pulmonary nodule documented in this encounter Care Teams Boat Rigger Relationship Specialty Start Date End Date Jaquan Red MD PCP - General Internal Medicine 08/23/14 09/27/21 Manuel Coleman [address] [place] [address] PCP - General Internal Medicine 09/28/21 documented as of this encounter
--- OUTSIDE RECORDS SUMMARY | 2024-08-17 14:46 | XMS_ITS | Encounter Summary ---
Author Organization [facility] Address [address] [place] [address] Care Team Providers Care Nail Machine Operator Name Role Phone Manuel Coleman Primary Care Provider [phone] Reason for Visit * Reason Onset Date Comments Prior Authorization 02/15/2022 Encounter Details Date Type Department Care Team Description 02/15/2022 Telephone Gastroenterology - [place] [address] [facility] [address] [place] [address] Mode Wilson MD [address] [facility] [address] [place] [address] Prior Authorization Social History Tobacco Use Types Packs/Day Years Used Date Smoking Tobacco: Former Cigarettes 1 30 Q uit: 10/21/2016 Smokeless Tobacco: Former Comments:1 pk a day for last 3 yrs, prior 2pk. Alcohol Use Standard Drinks/Week Comments No 0 (1 standard drink = 0.6 oz pur e alcohol) Sex Assigned at Date Recorded Not on file Job Start Date Occupation Industry Not on file Not on file Not on file COVID-19 Exposure Response Date Recorded In the last 10 days, have yo u been in contact with someone who was confirmed or suspected to have Coronavirus/COVID-19? No / Unsure 02/13/2022 8:48 AM EDT documented as of this encounter Miscellaneous Notes * Telephone Encounter - Laura Mcdaniel - 02/15/2022 9:25 AM EDT PRIOR AUTH REQUEST SENT THRU STAFF MESSAGE documented in this encounter Plan of Treatment Not on file documented as of this encounter Visit Diagnoses Not on filedocumented in this encounter Care Teams Nail Machine Operator Relationship Specialty Start Date [place] [address] PCP - General Internal Medicine 09/28/21 documented as of this encounter
--- OUTSIDE RECORDS SUMMARY | 2024-08-17 14:46 | XMS_ITS | Encounter Summary ---
Author Organization [facility] Address [address] [place] [address] Care Team Providers Care Academic Hospitalist Name Role Phone Jaquan Red MD Primary Care Provider Manuel Pruitt Primary Care Provider [phone] Reason for Visit * Reason Onset Date Comments medication problems 04/30/2016 Encounter Details Date Type Department Care Team Description 04/30/2016 Telephone Adult Medicine [address] [address] Jaquan Red MD medication problems Social History Tobacco Use Types Packs/Day Years Used Date Smoking Tobacco: Every Day Cigarettes 1 30 Comments:1 pk a day Alcohol Use Standard Drinks/Week Comments Not Asked 0 (1 standard drink = 0.6 oz pur e alcohol) Sex Assigned at Date Recorded Not on file Job Start Date Occupation Industry Not on file Not on file Not on file documented as of this encounter Miscellaneous Notes * Telephone Encounter - Jen Franks M.A. - 05/01/2016 4:57 PM EST Patient needs an appt booked / thanks * Telephone Encounter - Hyun Malhotra - 05/01/2016 3:14 PM EST Patient is returning the phone call. * Telephone Encounter - Amena Sheldon C.M.A. - 05/01/2016 2:08 PM EST Left message for patient to call. * Telephone Encounter - Jaquan Red - 04/30/2016 7:25 PM EST Never seen this pt. Need office visit for discussion * Telephone Encounter - Sheeba Reyes M.A. - 04/30/2016 6:11 PM EST Rx pending approval * Telephone Encounter - Ally Church - 04/30/2016 1:43 PM EST Who is calling? The patient Name of the medication nicotine (NICODERM CQ) 21 MG/24HR What is the specific problem or interaction? Patient would like to go back on this medication to quit smoking. If the patient is having a problem with taking the med - how long has the problem been going on? N/A documented in this encounter Plan of Treatment Not on file documented as of this encounter Visit Diagnoses Not on filedocumented in this encounter Care Teams Academic Hospitalist Relationship Specialty Start Date End Date Jaquan Red MD PCP - General Internal Medicine 08/23/14 09/27/21 Manuel Coleman [address] [place] [address] PCP - General Internal Medicine 09/28/21 documented as of this encounter
--- OUTSIDE RECORDS SUMMARY | 2024-08-17 14:46 | XMS_ITS | Encounter Summary ---
Author Organization [facility] Address [address] [place] [address] Care Team Providers Care Psychiatric Registered Nurse Name Role Phone Jaquan Red MD Primary Care Provider Manuel Pruitt Primary Care Provider [phone] Encounter Details Date Type Department Care Team Description 09/15/2014 Release of Information Medical Records [address] [place] [id number] Abstract, Provider Social History Tobacco Use Types Packs/Day Years Used Date Smoking Tobacco: Every Day Cigarettes 1 30 Alcohol Use Standard Drinks/Week Comments Not Asked [...] on filedocumented in this encounter Care Teams Psychiatric Registered Nurse Relationship Specialty Start Date End Date Jaquan Red MD PCP - General Internal Medicine 08/23/14 09/27/21 Manuel Coleman [address] [place] [id number] PCP - General Internal Medicine 09/28/21 documented as of this encounter
--- OUTSIDE RECORDS SUMMARY | 2024-08-17 14:46 | XMS_ITS | Encounter Summary ---
Author Organization [facility] Address [address] [place] [address] Care Team Providers Care Efficiency Clerk Name Role Phone Manuel Coleman Primary Care Provider [phone] Encounter Details Date Type Department Care Team Description 05/25/2022 Color Strainer Report Medical Records [address] [place] [address] Jose Tanner MD Social History Tobacco Use Types Packs/Day Years [...] on filedocumented in this encounter Care Teams Efficiency Clerk Relationship Specialty Start Date End Date Manuel Coleman [address] [place] [address] PCP - General Internal Medicine 09/28/21 documented as of this encounter
--- OUTSIDE RECORDS SUMMARY | 2024-08-17 14:46 | XMS_ITS | Encounter Summary ---
Author Organization [facility] Address [address] [place] [address] Care Team Providers Care Rn Quality Name Role Phone Manuel Coleman Primary Care Provider [phone] Reason for Visit * Reason Comments E-prescribe Rx Request Encounter Details Date Type Department Care Team Description 11/07/2023 Refill [facility] [address] [address] Dane De Leon MD [address] [address] E-prescribe Rx Request Social History Tobacco Use Types Packs/Day Years [...] documented as of this encounter Visit Diagnoses Diagnosis Post-traumatic osteoarthritis of left knee Secondary localized osteoarthrosis, lower leg documented in this encounter Care Teams Rn Quality Relationship Specialty Start Date End Date Manuel Coleman [address] [place] [address] PCP - General Internal Medicine 09/28/21 documented as of this encounter
--- OUTSIDE RECORDS SUMMARY | 2024-08-17 14:46 | XMS_ITS | Encounter Summary ---
Author Organization [facility] Address [address] [place] [address] Care Team Providers Care Ground Host/Hostess Name Role Phone Jaquan Red MD Primary Care Provider Manuel Pruitt Primary Care Provider [phone] Reason for Visit * Reason Onset Date Comments REFERRAL 09/01/2017 Encounter Details Date Type Department Care Team Description 09/01/2017 Telephone Infectious Disease - [address] [address] Atif Lombardi MD REFERRAL Social History Tobacco Use Types Packs/Day Years [...] encounter Miscellaneous Notes * Telephone Encounter - Atif Lombardi MD - 09/09/2017 9:35 PM EDT Ok to book, thanks * Telephone Encounter - Sundeep Palmer - 09/01/2017 9:00 AM EDT Patient was referred to infectious diseases re: Reason for referral: discuss 's recurrent BV and him as a possible Will you see this problem? Please advise. documented in this encounter Plan of Treatment Not on file documented as of this encounter Visit Diagnoses Not on filedocumented in this encounter Care Teams Ground Host/Hostess Relationship Specialty Start Date End Date Jaquan Red MD PCP - General Internal Medicine 08/23/14 09/27/21 Manuel Coleman [address] [place] [id number] PCP - General Internal Medicine 09/28/21 documented as of this encounter
--- OUTSIDE RECORDS SUMMARY | 2024-08-17 14:46 | XMS_ITS | Encounter Summary ---
Author Organization [facility] Address [address] [place] [address] Care Team Providers Care Software Testing Specialist Name Role Phone Jaquan Red MD Primary Care Provider Manuel Pruitt Primary Care Provider [phone] Encounter Details Date Type Department Care Team Description 12/04/2018 Orders Only Medical Records [address] [place] [address] Abstract, Provider Mass of left lung; Tobacco use disorder; S/P splenectomy; Centrilobular emphysema (HCC); Ground glass opacity present on imaging of lung Social History Tobacco Use Types Packs/Day Years [...] Date/Time Associated Diagnosis Comments PET SCAN/CT SCAN Routine 12/03/2018 Mass of left lung Tobacco use disorder S/P splenectomy Centrilobular emphysema (HCC) Ground glass opacity present on imaging of lung documented in this encounter Results * PET SCAN/CT SCAN (12/03/2018) Geo De La Cruz MD PET SCANS documented in this encounter Visit Diagnoses Diagnosis Mass of left lung Tobacco use disorder S/P splenectomy Other acquired absence of organ Centrilobular emphysema (HCC) Other emphysema Ground glass opacity present on imaging of lung documented in this encounter Care Teams Software Testing Specialist Relationship Specialty Start Date End Date Jaquan Red MD PCP - General Internal Medicine 08/23/14 09/27/21 Manuel Coleman [address] [place] [id number] PCP - General Internal Medicine 09/28/21 documented as of this encounter
--- OUTSIDE RECORDS SUMMARY | 2024-08-17 14:46 | XMS_ITS | Encounter Summary ---
[facility] Address [address] [place] [address] Care Team Providers Care Tax Technician Name Role Phone Jaquan Red MD Primary Care Provider Manuel Pruitt Primary Care Provider [phone] Encounter Details Date Type Department Care Team Description 06/27/2020 Old Medical Records Medical Records [address] [place] [address] Mikhail Don MD Social History Tobacco Use Types Packs/Day [...] Exposure Response Date Recorded In the last month, have you been in contact with someone who was confirmed or suspected to have Coronavirus / COVID-19? No / Unsure 06/27/2020 3:23 PM EST documented as of this encounter Plan of Treatment Not on file documented as of this encounter Visit Diagnoses Not on filedocumented in this encounter Care Teams Tax Technician Relationship Specialty Start Date End Date Jaquan Red MD PCP - General Internal Medicine 08/23/14 09/27/21 Manuel Coleman [address] [place] [address] PCP - General Internal Medicine 09/28/21 documented as of this encounter
--- OUTSIDE RECORDS SUMMARY | 2024-08-17 14:46 | XMS_ITS | Encounter Summary ---
Author Organization [facility] Address [address] [place] [address] Care Team Providers Care Family Reunification Specialist Name Role Phone Jaquan Red MD Primary Care Provider Manuel Pruitt Primary Care Provider [phone] Encounter Details Date Type Department Care Team Description 03/08/2019 Car Hopper Report Medical Records [address] [place] [address] Jennifer Ellison MD [address] [place] [address] Social History Tobacco Use Types Packs/Day Years [...] on filedocumented in this encounter Care Teams Family Reunification Specialist Relationship Specialty Start Date End Date Jaquan Red MD PCP - General Internal Medicine 08/23/14 09/27/21 Manuel Coleman [address] [place] [address] PCP - General Internal Medicine 09/28/21 documented as of this encounter
--- OUTSIDE RECORDS SUMMARY | 2024-08-17 14:46 | XMS_ITS | Encounter Summary ---
Author Organization [facility] Address [address] [place] [address] Care Team Providers Care Rv Parts And Service Director Name Role Phone Manuel Coleman Primary Care Provider [phone] Reason for Visit * Reason Comments E-prescribe Rx Request Encounter Details Date Type Department Care Team Description 02/13/2023 Refill [facility] [address] [address] Dane De Leon MD [address] [address] E-prescribe Rx Request Social History Tobacco Use [...] leg documented in this encounter Care Teams Rv Parts And Service Director Relationship Specialty Start Date End Date Manuel Coleman [address] [place] [address] PCP - General Internal Medicine 09/28/21 documented as of this encounter
--- OUTSIDE RECORDS SUMMARY | 2024-08-17 14:46 | XMS_ITS | Encounter Summary ---
Author [facility] Address [address] [place] [address] Care Team Providers Care Canceling Machine Operator Name Role Phone Manuel Coleman Primary Care Provider [phone] Encounter Details Date Type Department Care Team Description 10/20/2023 Orders Only Medical Records [address] [place] [address] John Scott Np Social History Tobacco Use Types Packs/Day Years [...] Procedure Name Priority Date/Time Associated Diagnosis Comments OUTSIDE PATHOLOGY Routine 10/13/2023 documented in this encounter Results * OUTSIDE PATHOLOGY (10/13/2023) Layout Worker John Scott OUTSIDE LAB documented in this encounter Visit Diagnoses Not on filedocumented in this encounter Care Teams Canceling Machine Operator Relationship Specialty Start Date End Date Manuel Coleman [address] [place], [place] [id number] PCP - General Internal Medicine 09/28/21 documented as of this encounter
--- OUTSIDE RECORDS SUMMARY | 2024-08-17 14:46 | XMS_ITS | Clinical Summary ---
Author Organization [facility] Address [address] [place] [address] Care Team Providers Care Recovery Manager Name Role Phone Manuel Coleman Primary Care Provider [phone] Allergies No known active allergies Medications Medication Sig Dispensed Refills Start Date End Date Status aspirin 81 MG tablet Take 81 mg by mouth daily. 0 Active Fluticasone Furoate-Vilanterol 100-25 MCG/INH AEROSOL POWDER,BREATH ACTIVATED Inhale into the lungs. 0 Active Daliresp 500 MCG Tab Take 1 Tablet by mouth daily. 0 06/11/2021 Active tramadol (ULTRAM) 50 MG tablet Take 50 mg by mouth. Prn pain 0 08/27/2017 Active acetaminophen (TYLENOL) 325 MG tablet Take 650 mg by mouth every 6 hours as needed. 0 Active fluticasone (Flonase) 50 MCG/ACT nasal spray 2 sprays each nostril once a day for 10 days. 16 g 0 11/30/2021 Active gabapentin (NEURONTIN) 300 MG capsule Take 2 Capsules by mouth at bedtime as needed. 0 Active tamsulosin (Flomax) 0.4 MG 24 hr capsule Take 1 Capsule by mouth daily. Take 30 mins after same meal every day. 90 Capsule 1 04/18/2022 Active albuterol (PROVENTIL) (2.5 MG/3ML) 0.083% nebulizer solution Take 1 Vial by nebulization every 4 hours as needed for Wheezing for up to 180 days. 300 mL 1 04/18/2022 Active benzonatate (Tessalon Perles) 100 MG capsule Take 1 Capsule by mouth 3 times daily as needed for Cough. 30 Capsule 0 04/18/2022 Active bisacodyl (Dulcolax) 5 MG EC tablet Take 2 tabs by mouth right before beginning bowel prep. Follow instructions given by office for timing. 2 Tablet 0 08/20/2022 Active polyethylene glycol (GoLYTELY,NuLYTELY) 236 g suspension Take 240 mL by mouth once for 1 dose. Take 4L by mouth once for one dose. May substitue any PEG. Starting at 6PM the night before your procedure drink 1 8oz glasses at your own pace until rectals run clear. 4000 mL 0 08/20/2022 Active triamcinolone acetonide (KENALOG-40) 40 MG/ML injectionIndications :Post-traumatic osteoarthritis of left knee Inject 2 mL into the articular space once for 1 dose. 2 mL 0 09/05/2022 Active amlodipine (NORVASC) 2.5 MG tablet Take 1 Tablet by mouth daily. 90 Tablet 1 09/16/2022 Active Cetirizine HCl (ZyrTEC Allergy) 10 MG Cap Take 10 mg by mouth daily. 60 Capsule 1 09/16/2022 Active ibuprofen (ADVIL,MOTRIN) 600 MG tablet Take 1 Tablet by mouth every 6 hours as needed for Pain. 60 Tablet 0 09/17/2022 Active ferrous sulfate 325 (65 Fe) MG tablet Take 1 Tablet by mouth daily. Take with vitamin C 30 Tablet 12 09/19/2022 Active Ascorbic Acid (Vitamin C) 500 MG Chew Tab Take 1 Tablet by mouth daily. Take with iron 30 Tablet 11 09/19/2022 Active Miconazole Nitrate 2 % Aerosol Apply 1 Applicatorful topically daily for 90 days. 100 g 3 10/02/2022 Active Cholecalciferol (Vitamin D3) 50 MCG (2000 UT) Tab TAKE 1 TABLET BY MOUTH DAILY 30 Tablet 0 05/14/2023 Active meloxicam (MOBIC) 15 MG tabletIndications:Po st-traumatic osteoarthritis of left knee TAKE 1 TABLET BY MOUTH DAILY WITH FOOD NEEDED FOR PAIN 30 Tablet 2 08/09/2023 Active Active Problems Problem Noted Date Post-traumatic osteoarthritis of left kn ee 09/05/2022 Asthma 09/04/2022 COPD (chronic obstructive pulmonary dise ase) 09/04/2022 Silicosis 09/04/2022 CINTHIA on CPAP 09/04/2022 BPH (benign prostatic hyperplasia) 09/04 COVID-19 virus infection 04/18/2020 Essential hypertension 05/12/2019 Centrilobular emphysema 11/26/2018 Ground glass opacity present on imaging of lung 11/26/2018 Mass of left lung 10/21/2016 Overview: Seen with pulmonology S/p left upper lobe and left lower lobe pulmonary nodule VATS with Dr. Jennifer Ellison 07/30/21- [facility]m. New 6 mm LLL nodule, f/u CT in 6-8 mos. Hereditary spherocytosis 06/21/2015 Overview: Seeing Dr. Puentes, s/p splenectomy Leukocytosis 06/21/2015 Overview: Seeing Dr. Puentes, advise seimnual CBC Tobacco use disorder 01/25/2015 Left knee pain 09/13/2014 S/P splenectomy at 10 years old. 09/14/19 15 Resolved Problems Problem Noted Date Resolved Date COVID-19 virus detected 04/17/2020 06/28/19 21 Elevated blood pressure 09/13/2014 07/26/19 21 Immunizations Name Administration Dates Next Due COVID-19 (Moderna) 04/06/2021,09/15/2020, 021 Influenza (> 6 Months) 05/09/2016,01/25/2015 Influenza Vaccine-preservati ve Free-quadrivalent 4 Years 01/27/2020 Pneumoccoccal(Adult) Polysaccharide PPSV23 01/26 Pneumococcal Conjugate PCV-13 08/27/2017 Tdap 05/09/2016 Family History Relation Name Status Comments Brother Alive splenectomy Father Alive Hypertension, t hyroid disease Mother (Age 21) complicati on of surgery (hysterectomy), embolism Other paternal grandm other's aunt Paternal Grandmother breast cancer ? early 50s Social History Tobacco Use Types Packs/Day Years Used Date Smoking Tobacco: Former Cigarettes 1 30 Q uit: 10/21/2016 Smokeless Tobacco: Former Tobacco Cessation:Counseling Given: Not Answered Comments:1 pk a day for last 3 yrs, prior 2pk. Alcohol Use Standard Drinks/Week Comments No 0 (1 standard drink = 0.6 oz pur e alcohol) Sex Assigned at Date Recorded Not on file Job Start Date Occupation Industry Not on file Not on file Not on file Last Filed Vital Signs Vital Sign Reading Time Taken Comments Blood Pressure 136/84 09/16/2022 3:45 PM EDT Pulse 76 09/16/2022 3:45 PM EDT Temperature 36.5 ??C (97.7 ??F) 09/16/2022 3:45 PM ED T Respiratory Rate 12 09/16/2022 3:45 PM EDT Oxygen Saturation 97% 11/30/2021 10:06 AM EDT Inhaled Oxygen Concentration - - Weight 93.4 kg (206 lb) 10/24/2022 3:11 PM EDT Height 165.1 cm (5' 5 ) 10/24/2022 3:11 PM EDT Body Mass Index 34.28 10/24/2022 3:11 PM EDT Plan of Treatment Health Maintenance Due Date Last Done Comments SHINGLES VACCINE (1 of 2) 2016 Lung Cancer Screening (Low D ose CT) 2021 10/21/2016 Covid-19 Vaccine (4 2022-2 4 season) 2023 04/06/2021, 09/15/2020, 08/26/2020 BASELINE HEALTH EXAM 40-64 04/18/202404/18, 04/18/2022, 08/27/2017, Additional history exists BMI CHECK/ADVISE 04/28/2024 09/16/2022, , 04/18/2022, Additional history exists INFLUENZA (Season Ended) 2024 020, 02/05/2019, 05/09/2016, Additional history exists DTAP/TDAP/TD (2 - Td or Tdap) 05/09/2026 05/09/2016 CHOLESTEROL SCREENING 02/13/2027 02/13/2022 , 01/27/2020, 08/07/2016, Additional history exists PNEUMOCOCCAL VACCINE FOR HIG H RISK PATIENTS (#2) 10/07/2031 01/27/2020, 08/27/2017 COLON CANCER SCREENING 09/03/2032 09/03/2022 HEPATITIS C SCREENING Completed 08/27/2017 Advance Directives For more information, please contact: [phone] Documents on File Type Date Recorded Patient Office Nurse Practitioner Expl anation Health Care Proxy 11/27/2018 8:21 AM HEALTH CARE PROXY Power of Multi Punch Operator 11/25/2018 1:58 PM Care Teams Recovery Manager Relationship Specialty Start Date End Date Manuel Coleman [address] [place] [address] [place] [address] PCP - General Internal Medicine 09/28/21
--- OUTSIDE RECORDS SUMMARY | 2024-08-17 14:46 | XMS_ITS | Encounter Summary ---
[facility] Address [address] [place] [address] Care Team Providers Care Wood Buffer Name Role Phone Jaquan Red MD Primary Care Provider Manuel Pruitt Primary Care Provider [phone] Encounter Details Date Type Department Care Team Description 12/22/2018 Orders Only Medical Records [address] [place] [address] Geo De La Cruz MD [address] [place] [id number] Social History Tobacco Use Types Packs/Day Years [...] Name Priority Date/Time Associated Diagnosis Comments OUTSIDE CT Routine 12/21/2018 documented in this encounter Results * OUTSIDE CT (12/21/2018) Geo De La Cruz MD RADIOLOGY documented in this encounter Visit Diagnoses Not on filedocumented in this encounter Care Teams Wood Buffer Relationship Specialty Start Date End Date Jaquna Red MD PCP - General Internal Medicine 08/23/14 09/27/21 Manuel Coleman [address] [place] [address] PCP - General Internal Medicine 09/28/21 documented as of this encounter
--- OUTSIDE RECORDS SUMMARY | 2024-08-17 14:46 | XMS_ITS | Encounter Summary ---
[facility] Address [address] [place] [address] Care Team Providers Care Supervisor Gear Repair Name Role Phone Jaquan Red MD Primary Care Provider Manuel Pruitt Primary Care Provider [phone] Encounter Details Date Type Department Care Team Description 06/09/2015 Tank Driver Report Medical Records [address] [place] [address] Deniz Mathew MD Social History Tobacco Use Types Packs/Day [...] on filedocumented in this encounter Care Teams Supervisor Gear Repair Relationship Specialty Start Date End Date Jaquan Red MD PCP - General Internal Medicine 08/23/14 09/27/21 Manuel Coleman [address] [place] [address] PCP - General Internal Medicine 09/28/21 documented as of this encounter
--- OUTSIDE RECORDS SUMMARY | 2024-08-17 14:46 | XMS_ITS | Encounter Summary ---
Author Organization [facility] Address [address] [place] [address] Care Team Providers Care System Configuration Specialist Name Role Phone Jaquan Red MD Primary Care Provider Manuel Pruitt Primary Care Provider [phone] Encounter Details Date Type Department Care Team Description 01/17/2015 Supervisor Of Guidance And Testing Report Medical Records [address] [place] [address] [address] Social History Tobacco Use Types Packs/Day Years [...] on filedocumented in this encounter Care Teams System Configuration Specialist Relationship Specialty Start Date End Date Jaquan Red MD PCP - General Internal Medicine 08/23/14 09/27/21 Manuel Coleman [address] [place], [place] [id number] PCP - General Internal Medicine 09/28/21 documented as of this encounter
--- OUTSIDE RECORDS SUMMARY | 2024-08-17 14:46 | XMS_ITS | Encounter Summary ---
Author Organization [facility] Address [address] [place] [address] Care Team Providers Care Tdp Displays Analyst Name Role Phone Jaquan Red MD Primary Care Provider Manuel Pruitt Primary Care Provider [phone] Encounter Details Date Type Department Care Team Description 02/05/2019 Surface Miner Report Medical Records [address] [place] [address] Antonino Puentes MD Social History Tobacco Use Types Packs/Day [...] on filedocumented in this encounter Care Teams Tdp Displays Analyst Relationship Specialty Start Date End Date Jaquan Red MD PCP - General Internal Medicine 08/23/14 09/27/21 Manuel Coleman [address] [place] [address] PCP - General Internal Medicine 09/28/21 documented as of this encounter
--- OUTSIDE RECORDS SUMMARY | 2024-08-17 14:46 | XMS_ITS | Encounter Summary ---
Author Organization [facility] Address [address] [place] [address] Care Team Providers Care Soft Hat Binder Name Role Phone Manuel Coleman Primary Care Provider [phone] Reason for Visit * Reason Onset Date Comments Medication 08/20/2022 Encounter Details Date Type Department Care Team Description 08/20/2022 Refill Gastroenterology - [place] [address] [facility] [address] [place] [id number] Mode Wilson MD [address] [facility] [address] [place] [address] Medication Social History Tobacco Use Types Packs/Day Years [...] on filedocumented in this encounter Care Teams Soft Hat Binder Relationship Specialty Start Date End Date Manuel Coleman [address] [place] [address] PCP - General Internal Medicine 09/28/21 documented as of this encounter
--- OUTSIDE RECORDS SUMMARY | 2024-08-17 14:46 | XMS_ITS | Clinical Summary ---
Author Organization [facility] Address [address] [place] [address] Care Team Providers Care Unemployment Benefits Claims Taker Name Role Phone Manuel Coleman MD Primary Care Provider [phone] Allergies No known active allergies Medications Medication Sig Dispensed Refills Start Date End Date Status fluticasone (FLONASE) 50 MCG/ACT nasal spray SPRAY TWICE IN EACH NOSTRIL 0 08/27/2017 Active loratadine (CLARITIN) 10 MG tablet Take 1 tablet (10 mg total) by mouth. 0 08/27/2017 Active terbinafine (LamISIL) 1 % cream Apply to foot twice daily 0 11/29/2015 Active traMADol (ULTRAM) 50 MG tablet Take 50 mg by mouth. 0 08/27/2017 Active roflumilast (DALIRESP) 500 MCG tablet Take by mouth. 0 Active tamsulosin (FLOMAX) 0.4 MG CAPS Take 1 capsule (0.4 mg total) by mouth daily. 0 Active gabapentin (NEURONTIN) 300 MG capsule Take 1 capsule (300 mg total) by mouth 3 (three) times a day. 0 Active Active Problems Problem Noted Date Diagnosed Date Neutrophilia 05/25/2022 Centrilobular emphysema 11/26/2018 Ground glass opacity present on imaging of lung 11/26/2018 Mass of left lung 10/21/2016 Overview: Overview: Seen with pulmonology Hereditary spherocytosis 06/21/2015 Overview: Overview: Seeing Dr. Puentes, s/p splenectomy Leukocytosis 06/21/2015 Overview: Overview: Seeing Dr. Puentes, advise seimnual CBC Tobacco use disorder 01/25/2015 Elevated blood pressure 09/13/2014 Left knee pain 09/13/2014 S/P splenectomy 09/13/2014 Family History Medical History Relation Name Comments Hereditary spherocytosis Brother 1 No Sig Med Hx Brother 2 No Sig Med Hx Father Hereditary spherocytosis Grandchild No Sig Med Hx Sister Hereditary spherocytosis Son Relation Name Status Comments Brother 1 Alive Brother 2 Alive Father Alive Grandchild Alive Mother Sister Alive Son Alive Social History Tobacco Use Types Packs/Day Years Used Date Smoking Tobacco: Former Cigarettes 1 30 Q uit: 2017 Smokeless Tobacco: Never Alcohol Use Standard Drinks/Week Comments No 0 (1 standard drink = 0.6 oz pur e alcohol) Sex and Gender Information Value Date Recorded Sex Assigned at Not on file Gender Identity Not on file Sexual Orientation Not on file Job Start Date Occupation Industry Not on file Not on file Not on file Last Filed Vital Signs Vital Sign Reading Time Taken Comments Blood Pressure 139/77 05/09/2022 2:27 PM EST Pulse 64 05/09/2022 2:27 PM EST Temperature 36.6 ??C (97.8 ??F) 05/09/2022 2:27 PM ES T Respiratory Rate - - Oxygen Saturation 98% 05/09/2022 2:27 PM EST Inhaled Oxygen Concentration - - Weight 91.8 kg (202 lb 6.4 oz) 05/09/2022 2:27 P M EST Height 165.1 cm (5' 5 ) 05/09/2022 2:27 PM EST Body Mass Index 33.68 05/09/2022 2:27 PM EST Plan of Treatment Health Maintenance Due Date Last Done Comments Hepatitis B Vaccines (1 of 3 - 3-dose series) 1966 Hepatitis C Screening 1966 Lung Cancer Screening (Low Dose CT) 1966 COVID-19 Vaccine (#1) 10/07/1971 Depression Screening 1978 Preventative Health Evaluation 1984 Shingrix-Zoster Vaccine (1 of 2) 1985 Colon Cancer Screening (Colonoscopy) 10/07/2011 Influenza Vaccine (#1) 2023 0, 05/09/2016, 05/09/2016, Additional history exists Pneumococcal Vaccine (3 of 3 - PPSV23 or PCV20) 01/26/2025 01/27/2020, 08/27/2017 DTap / Tdap / Td (2 - Td or Tdap) 05/09/2026 05/09/2016 RSV Ped < 20 months Aged Out No longe r eligible based on patient's age to complete this topic Care Teams Unemployment Benefits Claims Taker Relationship Specialty Start Date End Date Manuel Coleman MD [address] [place], [place] [address] [address] PCP - General Hospitalist Medicine 05/09/22
--- OUTSIDE RECORDS SUMMARY | 2024-08-17 14:46 | XMS_ITS | Encounter Summary ---
Author Organization [facility] Address [address] [place] [address] Care Team Providers Care Store Stock Associate Name Role Phone Jaquan Red MD Primary Care Provider Manuel Pruitt Primary Care Provider Encounter Details Date Type Department Care Team Description 05/15/2016 [facility] Medical Records [address] [place] [address] Abstract, Provider Social History Tobacco Use Types [...] on filedocumented in this encounter Care Teams Store Stock Associate Relationship Specialty Start Date End Date Jaquan Red MD PCP - General Internal Medicine 08/23/14 09/27/21 Manuel Coleman [address] [place] [address] PCP - General Internal Medicine 09/28/21 documented as of this encounter
--- OUTSIDE RECORDS SUMMARY | 2024-08-17 14:46 | XMS_ITS | Encounter Summary ---
Author Organization [facility] Address [address] [place] [address] Care Team Providers Care Manager Search Name Role Phone Jaquan Red MD Primary Care Provider Manuel Pruitt Primary Care Provider [phone] Encounter Details Date Type Department Care Team Description 07/15/2019 Landscape Engineer Report Medical Records [address] [place] [address] Mikhail Don MD Social History Tobacco Use [...] on filedocumented in this encounter Care Teams Manager Search Relationship Specialty Start Date End Date Jaquan Red MD PCP - General Internal Medicine 08/23/14 09/27/21 Manuel Coleman [address] [place] [address] PCP - General Internal Medicine 09/28/21 documented as of this encounter
--- OUTSIDE RECORDS SUMMARY | 2024-08-17 14:46 | XMS_ITS | Encounter Summary ---
Author Organization [facility] Address [address] [place] [address] Care Team Providers Care Paperhanger Supervisor Name Role Phone Manuel Coleman Primary Care Provider [phone] Encounter Details Date Type Department Care Team Description 07/12/2022 Telephone Adult Medicine [address] [address] Francisco Grigsby PA-C [address] [place] [address] Social History Tobacco Use Types Packs/Day Years [...] suspected to have Coronavirus/COVID-19? No / Unsure 07/12/2022 3:55 PM EDT documented as of this encounter Miscellaneous Notes * Telephone Encounter - Francisco Grigsby PA-C - 07/12/2022 4:20 PM EDT Can we try to get this patient in with our internal orthopedic service within the next 2 weeks. Thank you. documented in this encounter Plan of Treatment Not on file documented as of this encounter Visit Diagnoses Not on filedocumented in this encounter Care Teams Paperhanger Supervisor Relationship Specialty Start Date End Date Manuel Coleman [address] [place] [address] PCP - General Internal Medicine 09/28/21 documented as of this encounter
--- OUTSIDE RECORDS SUMMARY | 2024-08-17 14:46 | XMS_ITS | Encounter Summary ---
Author Organization [facility] Address [address] [place] [address] Care Team Providers Care Supervisor Die Casting Name Role Phone Manuel Coleman Primary Care Provider [phone] Encounter Details Date Type Department Care Team Description 10/01/2021 Transfer Records Medical Records [address] [place] [address] Abstract, Provider Social History Tobacco Use Types [...] filedocumented in this encounter Care Teams Supervisor Die Casting Relationship Specialty Start Date End Date Manuel Coleman [address] [place] [address] PCP - General Internal Medicine 09/28/21 documented as of this encounter
== END 2024-08-17 12:52 | disposition home or self-care (01) ==
LOC: HO.HMCH 12:27
PROVIDERS: PCP Physician Assistant; Visit Provider Internal Medicine
DX: I10 Essential (primary) hypertension (principal); J64 Unspecified pneumoconiosis; J44.9 Chronic obstructive pulmonary disease, unspecified; M31.30 Wegener's granulomatosis without renal involvement; J84.89 Other specified interstitial pulmonary diseases; N28.1 Cyst of kidney, acquired; D35.00 Benign neoplasm of unspecified adrenal gland; I87.2 Venous insufficiency (chronic) (peripheral)

== ENCOUNTER 2024-08-17 12:26 | Outpatient (REF) | payer OTHER, SELFPAY ==
[2024-08-17 14:05] LABS: Blood Urea Nitrogen 17 mg/dL (9-16); Estimated Glomerular Filt Rate > 60
--- OUTSIDE RECORDS SUMMARY | 2024-08-17 15:32 | XMS_ITS | Clinical Summary ---
Author Organization [facility] Address [address] [place] [address] Care Team Providers Care Music Journalist Name Role Phone Manuel Coleman MD Primary Care Provider [phone] Allergies No known active allergies Medications Medication [...] age to complete this topic Care Teams Music Journalist Relationship Specialty Start Date End Date Manuel Coleman MD [address] [place], [place] [address] [address] PCP - General Hospitalist Medicine 05/09/22
== END 2024-08-17 12:27 | disposition home or self-care (01) ==
LOC: HO.LAB 12:26
PROVIDERS: PCP Physician Assistant; Visit Provider Internal Medicine
DX: N28.1 Cyst of kidney, acquired (principal); D35.00 Benign neoplasm of unspecified adrenal gland; J64 Unspecified pneumoconiosis; I10 Essential (primary) hypertension; J44.9 Chronic obstructive pulmonary disease, unspecified; M31.30 Wegener's granulomatosis without renal involvement; J84.89 Other specified interstitial pulmonary diseases; I87.2 Venous insufficiency (chronic) (peripheral)
CPT/HCPCS: 36415; 82565; 84520; 96127

== ENCOUNTER 2024-09-02 13:54 | Outpatient (AMB) | payer OTHER, SELFPAY ==
--- NOTE | 2024-09-02 14:00 | MHC.OFFVIS ---
Intake Visit Reasons: Venous insufficiency (chronic) (peripheral) Intake Note: New patient presents for . He states his legs cramp, hurt , swell, and that they become red at times. Accompanied by: Spouse Allergies No Known Allergies Allergy (Verified 09/02/24 14:03) HPI HPI Venous insufficiency (chronic) (peripheral): Details: Pleasant 58-year-old gentleman patient presents for painful varicose veins. Complaints include pain over varicosities, swelling of lower extremities, cramping, fatigue, and heaviness of the lower extremities. 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 It is noted more so in right leg. Patient denies any previous venous surgery or injections. Patient denies any history of DVT/ PE. Patient denies any history of phlebitis. Trial of compression includes - [id number] They now present for vascular evaluation regarding their varicose veins. [facility] Medical History Chronic fatigue Silicosis Chest pain Lung mass Asthma-COPD overlap syndrome Dyspnea Pulmonary nodules Pneumoconiosis Asthma Necrotizing granulomatous inflammation of lung Organizing pneumonia Pulmonary nodules Surgical History History of lung surgery History of vasectomy Hx of cholecystectomy History of splenectomy History of knee surgery Family History Mother Embolism Father HTN (hypertension) Partial sight in both eyes Hypercholesteremia Sister Sleep apnea Kidney disease HTN (hypertension) Asthma Arthritis Paternal Grandmother Cancer Social History Housing: House Alcohol intake: never Patient Tobacco Use Status: Former Tobacco user Tobacco use type: Cigarette e-Cigarette/Vaping Use: Never Used Second Hand Smoke Exposure: No service: No Current occupational status: employed Current occupational exposures/hazards: No Cognitive needs: No Hearing needs: No Vision needs: Yes Review of Systems Const Reports as per HPI ENT Reports no additional complaints Card Denies chest pain, Denies chest pain at rest and Denies chest pain with activity Resp Denies chest congestion and Denies cough GI Reports no additional complaints Musc Details: pain over varicosities, aching of lower extremities, swelling, cramping, heaviness and tiredness, itching Denies abnormal gait Skin/Breast Reports pruritus and Denies wounds Neuro Reports no additional complaints and Denies abnormal gait Psych Denies no additional complaints Physical Exam Const General: cooperative, healthy appearing and comfortable Orientation/consciousness: oriented to person, oriented to place and oriented to time Neck Carotids: no bruits Chest Chest palpation & inspection: normal inspection of the chest and normal palpation of entire chest wall Resp Effort & Inspection: normal respiratory effort and able to speak in complete sentences Cardio Rate: regular rate Heart sounds: S1 normal heart sound present and S2 normal heart sound present Peripheral pulses: Peripheral pulses 2+ throughout GI Inspection: Yes normal to inspection Skin Other: +2 edema CEAP Classification C4 - skin color changes Ep - Etiology Primary As - superficial veins P - reflux General skin exam: dry skin Neuro General: oriented to person, oriented to place and oriented to time Extrem Right lower extremity: full ROM, normal capillary refill and edema Left lower extremity: full ROM, normal capillary refill and edema Psych Mental Status: mental status grossly normal Assessment & Plan Assessment & Plan (1) Varicose veins of right lower extremity with inflammation: Code(s): I83.11 - Varicose veins of right lower extremity with inflammation Category: Medical Plan: In short, the patient has evidence of venous insufficiency. I have discussed the pathophysiology with the patient. In addition I have provided informational material regarding venous disease to the patient. We have discussed conservative measures including compression, elevation, and exercise. I have also provided a handout regarding appropriate use of compression stockings and where to purchase good compression stockings as well. I have taken the liberty of ordering venous insufficiency testing with the patient. They will follow up with me after testing. The patient had an opportunity to ask questions regarding the treatment plan. All questions were answered. Imaging studies, laboratory studies and physical exam results were discussed and reviewed in detail. No major barriers to understanding were identified. The patient expressed understanding and agreement with the above treatment plan. The patient is aware they should contact our office by phone for worsening of the current condition or the appearance of new symptoms. Thank you for allowing me to participate in the vascular care of this patient. If you have any questions or concerns regarding the treatment for the above condition please do not hesitate to contact me. The office telephone contact is [phone]. This note is constructed using voice recognition software. While every effort has been made to ensure accuracy, behavioral assistant errors may have been included. Thank you for allowing me to participate in the care of your patient. Yours sincerely, Darci García MD, FACS, R.P.V.I. Plan Patient was informed and verbally consented to the use of an ambient scribe for clinic note documentation during this visit. Orders: Orders US venous duplex LE BI 1 Week I83.11 - Varicose veins of right lower extremity with inflammation Patient Instructions: - Undergo an ultrasound for evaluation of venous function - Keep well hydrated - Continue to wear supportive footwear - Maintain vitamin regimen - Review information provided on vein disease Coding Level of Care Code New Pt Level 4 (16391) Complex EM visit Add On G2211 Diagnoses Varicose veins of right lower extremity with inflammation I83.11
--- OUTSIDE RECORDS SUMMARY | 2024-09-02 14:50 | XMS_ITS | Clinical Summary ---
Author Organization [facility] Address [address] [place] [address] Care Team Providers Care Manager Of Global Name Role Phone Manuel Coleman MD Primary Care Provider [phone] Allergies No known active allergies Medications Medication [...] age to complete this topic Care Teams Manager Of Global Relationship Specialty Start Date End Date Manuel Coleman MD [address] [place], [place] [address] [address] PCP - General Hospitalist Medicine 05/09/22
== END 2024-09-02 14:37 | disposition home or self-care (01) ==
LOC: HO.HVS 13:54
PROVIDERS: PCP Physician Assistant; Visit Provider Surgery Vascular Surgery
DX: I83.11 Varicose veins of right lower extremity with inflammation (principal)
CPT/HCPCS: 99204

== ENCOUNTER → 2024-09-02 13:54 | Outpatient (BNVA) | payer OTHER, SELFPAY | PROVIDERS: PCP Physician Assistant; Visit Provider Surgery Vascular Surgery ==

== ENCOUNTER 2024-09-03 14:36 | Outpatient (REF) | payer OTHER, SELFPAY ==
--- OUTSIDE RECORDS SUMMARY | 2024-09-03 14:38 | XMS_ITS | Encounter Summary ---
Author Organization [facility] Address [address] [place] [address] Care Team Providers Care Welcome Center Agent Name Role Phone Jaquan Red MD Primary Care Provider Manuel Pruitt Primary Care Provider [phone] Encounter Details Date Type Department Care Team Description 06/08/2019 Detective Captain Report Medical Records [address] [place] [address] Jabari Meneses, LAKESHA Social History Tobacco Use Types Packs/Day Years [...] on filedocumented in this encounter Care Teams Welcome Center Agent Relationship Specialty Start Date End Date Jaquan Red MD PCP - General Internal Medicine 08/23/14 09/27/21 Manuel Coleman [address] [place] [address] PCP - General Internal Medicine 09/28/21 documented as of this encounter
--- OUTSIDE RECORDS SUMMARY | 2024-09-03 14:38 | XMS_ITS | Encounter Summary ---
Author Organization [facility] Address [address] [place] [address] Care Team Providers Care Roof Fixer Name Role Phone Manuel Coleman Primary Care Provider [phone] Encounter Details Date Type Department Care Team Description 07/12/2022 Telephone Adult Medicine [address] [address] Francisco Grigsby PA-C [address] [place] [address] Social History Tobacco Use Types Packs/Day Years [...] on filedocumented in this encounter Care Teams Roof Fixer Relationship Specialty Start Date End Date Manuel Coleman [address] [place] [address] PCP - General Internal Medicine 09/28/21 documented as of this encounter
--- OUTSIDE RECORDS SUMMARY | 2024-09-03 14:38 | XMS_ITS | Encounter Summary ---
Author Organization [facility] Address [address] [place] [address] Care Team Providers Care Medical Doctor Name Role Phone Jaquan Red MD Primary Care Provider Manuel Pruitt Primary Care Provider [phone] Encounter Details Date Type Department Care Team Description 03/08/2019 Quiller Runner Report Medical Records [address] [place] [address] Jennifer Ellison MD [address] [place] [address] Social History Tobacco Use Types Packs/Day Years [...] on filedocumented in this encounter Care Teams Medical Doctor Relationship Specialty Start Date End Date Jaquan Red MD PCP - General Internal Medicine 08/23/14 09/27/21 Manuel Coleman [address] [place] [address] PCP - General Internal Medicine 09/28/21 documented as of this encounter
--- OUTSIDE RECORDS SUMMARY | 2024-09-03 14:38 | XMS_ITS | Encounter Summary ---
Author Organization [facility] Address [address] [place] [address] Care Team Providers Care Lead Applier Name Role Phone Jaquan Red MD Primary Care Provider Manuel Pruitt Primary Care Provider [phone] Encounter Details Date Type Department Care Team Description 06/01/2019 Enforcement Manager Report Medical Records [address] [place] [address] Luis Kingsley MD Social History Tobacco Use Types Packs/Day [...] on filedocumented in this encounter Care Teams Lead Applier Relationship Specialty Start Date End Date Jaquan Red MD PCP - General Internal Medicine 08/23/14 09/27/21 Manuel Coleman [address] [place] [address] PCP - General Internal Medicine 09/28/21 documented as of this encounter
--- OUTSIDE RECORDS SUMMARY | 2024-09-03 14:38 | XMS_ITS | Encounter Summary ---
Author Organization [facility] Address [address] [place] [address] Care Team Providers Care Photolith Operator Name Role Phone Jaquan Red MD Primary Care Provider Manuel Pruitt Primary Care Provider [phone] Encounter Details Date Type Department Care Team Description 07/15/2019 Weight Training Instructor Report Medical Records [address] [place] [address] Mikhail Don MD Social History Tobacco Use [...] on filedocumented in this encounter Care Teams Photolith Operator Relationship Specialty Start Date End Date Jaquan Red MD PCP - General Internal Medicine 08/23/14 09/27/21 Manuel Coleman [address] [place] [address] PCP - General Internal Medicine 09/28/21 documented as of this encounter
--- OUTSIDE RECORDS SUMMARY | 2024-09-03 14:38 | XMS_ITS | Encounter Summary ---
Author Organization [facility] Address [address] [place] [address] Care Team Providers Care Web Operations Lead Name Role Phone Jaquan Red MD Primary Care Provider Manuel Pruitt Primary Care Provider [phone] Encounter Details Date Type Department Care Team Description 07/27/2021 Landscape Maintenance Internship Report Medical Records [address] [place] [address] Mikhail Don MD Social History Tobacco Use [...] on filedocumented in this encounter Care Teams Web Operations Lead Relationship Specialty Start Date End Date Jaquan Red MD PCP - General Internal Medicine 08/23/14 09/27/21 Manuel Coleman [address] [place] [address] PCP - General Internal Medicine 09/28/21 documented as of this encounter
--- OUTSIDE RECORDS SUMMARY | 2024-09-03 14:38 | XMS_ITS | Encounter Summary ---
Author Organization [facility] Address [address] [place] [address] Care Team Providers Care Entry Level Accountant Name Role Phone Jaquan Red MD Primary Care Provider Manuel Pruitt Primary Care Provider [phone] Encounter Details Date Type Department Care Team Description 02/22/2019 Hospital Medical Records [address] [place] [address] Jennifer Ellison MD [address] [place] [address] Social History Tobacco Use Types Packs/Day Years [...] on filedocumented in this encounter Care Teams Entry Level Accountant Relationship Specialty Start Date End Date Jaquan Red MD PCP - General Internal Medicine 08/23/14 09/27/21 Manuel Coleman [address] [place] [address] PCP - General Internal Medicine 09/28/21 documented as of this encounter
--- OUTSIDE RECORDS SUMMARY | 2024-09-03 14:38 | XMS_ITS | Encounter Summary ---
Author [facility] Address [address] [place] [address] Care Team Providers Care Evidence Specialist Name Role Phone Jaquan Red MD Primary Care Provider Manuel Pruitt Primary Care Provider [phone] Encounter Details Date Type Department Care Team Description 12/22/2018 Orders Only Medical Records [address] [place] [address] Geo De La Cruz MD [address] [place] [phone] Social History Tobacco Use Types Packs/Day [...] on filedocumented in this encounter Care Teams Evidence Specialist Relationship Specialty Start Date End Date Jaquan Red MD PCP - General Internal Medicine 08/23/14 09/27/21 Manuel Colemna [address] [place] [address] PCP - General Internal Medicine 09/28/21 documented as of this encounter
--- OUTSIDE RECORDS SUMMARY | 2024-09-03 14:38 | XMS_ITS | Encounter Summary ---
Author Organization [facility] Address [address] [place] [address] Care Team Providers Care Paper Hanger Name Role Phone Manuel Coleman Primary Care Provider [phone] Encounter Details Date Type Department Care Team Description 06/05/2022 SCAN Medical Records [address] [place] [address] Abstract, Provider Social History Tobacco Use Types [...] on filedocumented in this encounter Care Teams Paper Hanger Relationship Specialty Start Date End Date Manuel Coleman [address] [place] [address] PCP - General Internal Medicine 09/28/21 documented as of this encounter
--- OUTSIDE RECORDS SUMMARY | 2024-09-03 14:38 | XMS_ITS | Encounter Summary ---
Author Organization [facility] Address [address] [place] [address] Care Team Providers Care Reinforcing Rod Layer Name Role Phone Jaquan Red MD Primary Care Provider Manuel Pruitt Primary Care Provider [phone] Encounter Details Date Type Department Care Team Description 06/16/2020 Facing End Trimmer Report Medical Records [address] [place] [address] Mikhail Don MD Social History Tobacco Use [...] on filedocumented in this encounter Care Teams Reinforcing Rod Layer Relationship Specialty Start Date End Date Jaquan Red MD PCP - General Internal Medicine 08/23/14 09/27/21 Manuel Coleman [address] [place] [address] PCP - General Internal Medicine 09/28/21 documented as of this encounter
--- OUTSIDE RECORDS SUMMARY | 2024-09-03 14:38 | XMS_ITS | Encounter Summary ---
Author Organization [facility] Address [address] [place] [address] Care Team Providers Care Supervisor Spinning Name Role Phone Manuel Coleman Primary Care Provider [phone] Encounter Details Date Type Department Care Team Description 09/11/2022 Telephone Gastroenterology - [place] [address] [facility] [address] [place] [phone] Bacilio Jeter PA-C [address] [address] Social History Tobacco Use Types Packs/Day Years [...] suspected to have Coronavirus/COVID-19? No / Unsure 09/05/2022 2:23 PM EDT documented as of this encounter Miscellaneous Notes * Telephone Encounter - Bacilio Jeter PA-C - 09/19/2022 12:17 PM EDT If he is seeing blood on the tissue, this could be rectal irritation versus a hemorrhoid. If it is just on the tissue certainly it is less concerning than if the toilet had a lot of blood in it. It is noted that he does have hemorrhoids grade 1 that could be accounting for the rectal bleeding. In regards to the iron, the iron as well as vitamin C has been sent. His insurance may not cover that soif he cannot afford it at [facility] or [facility], then he should consider going to [facility] to purchase the medication. * Telephone Encounter - Leana Levy - 09/19/2022 11:32 AM EDT Spoke to patient's and she says he's not having rectal bleeding but does see some blood sometimes on the paper. He just had a colon on 09/03 and she thinks that's when the rectal bleeding started.He's also not taking iron pills as they were never sent to the pharmacy. Thanks. * Telephone Encounter - Leana Levy - 09/19/2022 10:07 AM EDT Left a vm for the patient to call our office back. * Telephone Encounter - Bacilio Jeter PA-C - 09/11/2022 1:22 PM EDT Please let patient know that there is a little decrease in his blood count which may be accounted for by the rectal bleeding that he recently experienced and should take iron. Please let me know if he needs iron tablets. Please find out if he still having the rectal bleeding and he may need to follow-up with a colonoscopy if the rectal bleeding does not subside. documented in this encounter Plan of Treatment Not on file documented as of this encounter Visit Diagnoses Not on filedocumented in this encounter Care Teams Supervisor Spinning Relationship Specialty Start Date End Date Manuel Coleman [address] [place] [address] PCP - General Internal Medicine 09/28/21 documented as of this encounter
--- OUTSIDE RECORDS SUMMARY | 2024-09-03 14:38 | XMS_ITS | Encounter Summary ---
Author Organization [facility] Address [address] [place] [address] Care Team Providers Care Prestidigitator Name Role Phone Jaquan Red MD Primary Care Provider Manuel Pruitt Primary Care Provider Encounter Details Date Type Department Care Team Description 02/05/2019 Knitted Cloth Examiner Report Medical Records [address] [place] [address] Antonino Puentes MD Social History Tobacco Use [...] on filedocumented in this encounter Care Teams Prestidigitator Relationship Specialty Start Date End Date Jaquan Red MD PCP - General Internal Medicine 08/23/14 09/27/21 Manuel Coleman [address] [place] [address] PCP - General Internal Medicine 09/28/21 documented as of this encounter
--- OUTSIDE RECORDS SUMMARY | 2024-09-03 14:38 | XMS_ITS | Encounter Summary ---
Author Organization [facility] Address [address] [place] [address] Care Team Providers Care Residential Energy Auditor Name Role Phone Manuel Coleman Primary Care Provider [phone] Encounter Details Date Type Department Care Team Description 02/22/2022 Ground Water Contractor Report Medical Records [address] [place] [address] Mikhail Don MD Social History Tobacco Use [...] AM EDT documented as of this encounter Plan of Treatment Not on file documented as of this encounter Visit Diagnoses Not on filedocumented in this encounter Care Teams Residential Energy Auditor Relationship Specialty Start Date End Date Manuel Coleman [address] [place], [place] [phone] PCP - General Internal Medicine 09/28/21 documented as of this encounter
--- OUTSIDE RECORDS SUMMARY | 2024-09-03 14:38 | XMS_ITS | Encounter Summary ---
Author Organization [facility] Address [address] [place] [address] Care Team Providers Care Assistant Press Operator Offset Name Role Phone Jaquan Red MD Primary Care Provider Manuel Pruitt Primary Care Provider [phone] Encounter Details Date Type Department Care Team Description 10/25/2019 Sericulturist Report Medical Records [address] [place] [address] Mikhail Don MD Social History Tobacco Use [...] on filedocumented in this encounter Care Teams Assistant Press Operator Offset Relationship Specialty Start Date End Date Jaquan Red MD PCP - General Internal Medicine 08/23/14 09/27/21 Manuel Coleman [address] [place] [address] PCP - General Internal Medicine 09/28/21 documented as of this encounter
--- OUTSIDE RECORDS SUMMARY | 2024-09-03 14:38 | XMS_ITS | Encounter Summary ---
Author Organization [facility] Address [address] [place] [address] Care Team Providers Care Assistant Cross Country Coach Name Role Phone Jaquan Red MD Primary Care Provider Manuel Pruitt Primary Care Provider [phone] Encounter Details Date Type Department Care Team Description 02/22/2021 Product Examiner Report Medical Records [address] [place] [address] Mikhail Don MD Social History Tobacco Use [...] filedocumented in this encounter Care Teams Assistant Cross Country Coach Relationship Specialty Start Date End Date Jaquan Red MD PCP - General Internal Medicine 08/23/14 09/27/21 Manuel Coleman [address] [place] [address] PCP - General Internal Medicine 09/28/21 documented as of this encounter
--- OUTSIDE RECORDS SUMMARY | 2024-09-03 14:38 | XMS_ITS | Encounter Summary ---
Author Organization [facility] Address [address] [place] [address] Care Team Providers Care Cripple Cutter Name Role Phone Manuel Coleman Primary Care Provider [phone] Encounter Details Date Type Department Care Team Description 05/25/2022 Marine Fitter Report Medical Records [address] [place] [address] Jose Tanner MD Social History Tobacco Use [...] on filedocumented in this encounter Care Teams Cripple Cutter Relationship Specialty Start Date End Date Manuel Coleman [address] [place] [address] PCP - General Internal Medicine 09/28/21 documented as of this encounter
--- OUTSIDE RECORDS SUMMARY | 2024-09-03 14:38 | XMS_ITS | Encounter Summary ---
Author Organization [facility] Address [address] [place] [address] Care Team Providers Care Community Outreach Director Name Role Phone Jaquan Red MD Primary Care Provider Manuel Pruitt Primary Care Provider [phone] Reason for Visit * Reason Onset Date Comments REFERRAL 09/01/2017 Encounter Details Date Type Department Care Team Description 09/01/2017 Telephone Infectious Disease - [address] [address] Atif Lombardi MD REFERRAL Social History Tobacco [...] on filedocumented in this encounter Care Teams Community Outreach Director Relationship Specialty Start Date End Date Jaquan Red MD PCP - General Internal Medicine 08/23/14 09/27/21 Manuel Coleman [address] [place] [address] PCP - General Internal Medicine 09/28/21 documented as of this encounter
--- OUTSIDE RECORDS SUMMARY | 2024-09-03 14:38 | XMS_ITS | Encounter Summary ---
Author [facility] Address [address] [place] [address] Care Team Providers Care Stretcher Leveler Operator Helper Name Role Phone Jaquan Red MD Primary Care Provider Manuel Pruitt Primary Care Provider [phone] Encounter Details Date Type Department Care Team Description 12/05/2016 Orders Only Medical Records [address] [place] [address] Geo De La Cruz MD [address] [place] [phone] Tobacco use disorder; Pulmonary nodule Social [...] nodule documented in this encounter Care Teams Stretcher Leveler Operator Helper Relationship Specialty Start Date End Date Jaquan Red MD PCP - General Internal Medicine 08/23/14 09/27/21 Manuel Coleman [address] [place] [address] PCP - General Internal Medicine 09/28/21 documented as of this encounter
--- OUTSIDE RECORDS SUMMARY | 2024-09-03 14:38 | XMS_ITS | Encounter Summary ---
Author Organization [facility] Address [address] [place] [address] Care Team Providers Care Plasma Processor Name Role Phone Jaquan Red MD Primary Care Provider Manuel Pruitt Primary Care Provider [phone] Encounter Details Date Type Department Care Team Description 05/24/1972 Valving Machine Operator Report Medical Records [address] [place] [address] Mikhail Don MD Social History Tobacco Use Types Packs/Day Years Used Date Smoking Tobacco: Never Assessed Sex Assigned at Date Recorded Not on file Job Start Date Occupation Industry Not on file Not on file Not on file documented as of this encounter Plan of Treatment Not on file documented as of this encounter Visit Diagnoses Not on filedocumented in this encounter Care Teams Plasma Processor Relationship Specialty Start Date End Date Jaquan Red MD PCP - General Internal Medicine 08/23/14 09/27/21 Manuel Coleman [address] [place] [id number] PCP - General Internal Medicine 09/28/21 documented as of this encounter
--- OUTSIDE RECORDS SUMMARY | 2024-09-03 14:38 | XMS_ITS | Clinical Summary ---
Author Organization [employer] [facility] Address [address] [place] [address] Care Team Providers Care Vehicle Return Associate Name Role Phone Manuel Coleman MD Primary Care Provider [phone] Allergies No known active allergies Medications Medication [...] age to complete this topic Care Teams Vehicle Return Associate Relationship Specialty Start Date End Date Manuel Coleman MD [address] [place], [place] [address] [address] PCP - General Hospitalist Medicine 05/09/22
--- OUTSIDE RECORDS SUMMARY | 2024-09-03 14:38 | XMS_ITS | Encounter Summary ---
Author Organization [facility] Address [address] [place] [address] Care Team Providers Care Building Consultant Name Role Phone Manuel Coleman Primary Care Provider [phone] Encounter Details Date Type Department Care Team Description 10/04/2022 Land Department Head Report Medical Records [address] [place] [address] Mikhail Don MD Social History Tobacco Use [...] suspected to have Coronavirus/COVID-19? No / Unsure 10/02/2022 1:56 PM EDT documented as of this encounter Plan of Treatment Not on file documented as of this encounter Visit Diagnoses Not on filedocumented in this encounter Care Teams Building Consultant Relationship Specialty Start Date End Date Manuel Coleman [address] [place], [place] [id number] PCP - General Internal Medicine 09/28/21 documented as of this encounter
--- OUTSIDE RECORDS SUMMARY | 2024-09-03 14:38 | XMS_ITS | Encounter Summary ---
Author Organization [facility] Address [address] [place] [address] Care Team Providers Care Inside Technical Sales Representative Name Role Phone Jaquan Red MD Primary Care Provider Manuel Pruitt Primary Care Provider [phone] Reason for Visit * Reason Onset Date Comments Gun Sealing Machine Operator Feedback 11/19/2016 PET Encounter Details Date Type Department Care Team Description 11/19/2016 Telephone Adult Medicine [address] [address] Jaquan Red MD Gun Sealing Machine Operator Feedback (PET) Social History Tobacco Use Types Packs/Day Years [...] encounter Miscellaneous Notes * Telephone Encounter - Theodore Carey - 11/19/2016 9:06 AM EDT Appt scheduled for 12/02/2016 at 10am. Letter with appointment information mailed to patient. documented in this encounter Plan of Treatment Not on file documented as of this encounter Visit Diagnoses Not on filedocumented in this encounter Care Teams Inside Technical Sales Representative Relationship Specialty Start Date End Date Jaquan Red MD PCP - General Internal Medicine 08/23/14 09/27/21 Manuel Coleman [address] [place] [address] PCP - General Internal Medicine 09/28/21 documented as of this encounter
--- OUTSIDE RECORDS SUMMARY | 2024-09-03 14:38 | XMS_ITS | Encounter Summary ---
Author Organization [facility] Address [address] [place] [address] Care Team Providers Care Fish And Wildlife Technician Name Role Phone Jaquan Red MD Primary Care Provider Manuel Pruitt Primary Care Provider [phone] Encounter Details Date Type Department Care Team Description 06/09/2015 Pododermatologist Report Medical Records [address] [place] [address] Deniz Mathew MD Social History Tobacco Use [...] on filedocumented in this encounter Care Teams Fish And Wildlife Technician Relationship Specialty Start Date End Date Jaquan Red MD PCP - General Internal Medicine 08/23/14 09/27/21 Manuel Coleman [address] [place] [address] PCP - General Internal Medicine 09/28/21 documented as of this encounter
--- OUTSIDE RECORDS SUMMARY | 2024-09-03 14:38 | XMS_ITS | Encounter Summary ---
Author Organization [facility] Address [address] [place] [address] Care Team Providers Care Glove Parts Cutter Name Role Phone Jaquan Red MD Primary Care Provider Manuel Pruitt Primary Care Provider [phone] Reason for Visit * Reason Onset Date Comments medication problems 04/30/2016 Encounter Details Date Type Department Care Team Description 04/30/2016 Telephone Adult Medicine [address] [address] Jaquan Red MD medication problems Social History [...] on filedocumented in this encounter Care Teams Glove Parts Cutter Relationship Specialty Start Date End Date Jaquan Red MD PCP - General Internal Medicine 08/23/14 09/27/21 Manuel Coleman [address] [place] [address] PCP - General Internal Medicine 09/28/21 documented as of this encounter
--- OUTSIDE RECORDS SUMMARY | 2024-09-03 14:38 | XMS_ITS | Encounter Summary ---
Author Organization [facility] Address [address] [place] [address] Care Team Providers Care Glaze Mixer Name Role Phone Jaquan Red MD Primary Care Provider Manuel Pruitt Primary Care Provider [phone] Encounter Details Date Type Department Care Team Description 01/03/2021 Countersinker Balance Screw Hole Report Medical Records [address] [place] [address] Jeremy Kinney Social History Tobacco Use Types Packs/Day Years [...] on filedocumented in this encounter Care Teams Glaze Mixer Relationship Specialty Start Date End Date Jaquan Red MD PCP - General Internal Medicine 08/23/14 09/27/21 Manuel Coleman [address] [place] [address] PCP - General Internal Medicine 09/28/21 documented as of this encounter
--- OUTSIDE RECORDS SUMMARY | 2024-09-03 14:39 | XMS_ITS | Clinical Summary ---
Author Organization [facility] Address [address] [place] [address] Care Team Providers Care Salt Machine Operator Name Role Phone Manuel Coleman Primary Care Provider [phone] Allergies No known active allergies Medications Medication [...] Advance Directives For more information, please contact: [phone] Documents on File Type Date Recorded Patient Instrumentation Technician Expl anation Health Care Proxy 11/27/2018 8:21 AM HEALTH CARE PROXY Power of Escrow Closer 11/25/2018 1:58 PM Care Teams Salt Machine Operator Relationship Specialty Start Date End Date Manuel Coleman [address] [place] [address] [place] [address] PCP - General Internal Medicine 09/28/21
--- OUTSIDE RECORDS SUMMARY | 2024-09-03 14:39 | XMS_ITS | Encounter Summary ---
Author Organization [facility] Address [address] [place] [address] Care Team Providers Care Outside Contractor Sales Name Role Phone Jaquan Red MD Primary Care Provider Manuel Pruitt Primary Care Provider [phone] Encounter Details Date Type Department Care Team Description 02/01/2019 Release of Information Medical Records [address] [place] [address] Abstract, Provider Social History Tobacco Use Types [...] on filedocumented in this encounter Care Teams Outside Contractor Sales Relationship Specialty Start Date End Date Jaquan Red MD PCP - General Internal Medicine 08/23/14 09/27/21 Manuel Coleman [address] [place] [address] PCP - General Internal Medicine 09/28/21 documented as of this encounter
--- OUTSIDE RECORDS SUMMARY | 2024-09-03 14:39 | XMS_ITS | Encounter Summary ---
Author Organization [facility] Address [address] [place] [address] Care Team Providers Care Normalizer Name Role Phone Manuel Coleman Primary Care Provider [phone] Reason for Visit * Reason Comments E-prescribe Rx Request Encounter Details Date Type Department Care Team Description 11/07/2023 Refill [facility] [address] [address] Dane De Leon MD [address] [address] E-prescribe Rx Request Social History Tobacco Use [...] leg documented in this encounter Care Teams Normalizer Relationship Specialty Start Date End Date Manuel Coleman [address] [place] [address] PCP - General Internal Medicine 09/28/21 documented as of this encounter
--- OUTSIDE RECORDS SUMMARY | 2024-09-03 14:39 | XMS_ITS | Encounter Summary ---
Author Organization [facility] Address [address] [place] [address] Care Team Providers Care Ladies Underwear Operator Name Role Phone Manuel Coleman Primary Care Provider [phone] Reason for Visit * Reason Comments E-prescribe Rx Request Encounter Details Date Type Department Care Team Description 08/09/2023 Refill [facility] [address] [address] Dane De Leon MD [address] [address] E-prescribe Rx Request Social History Tobacco Use [...] leg documented in this encounter Care Teams Ladies Underwear Operator Relationship Specialty Start Date End Date Manuel Coleman [address] [place] [address] PCP - General Internal Medicine 09/28/21 documented as of this encounter
--- NOTE | 2024-09-03 14:44 | PFT_ITS ---
Indication interstitial lung disease Spirometry [FEV1 to FVC 70% pre bronchodilator 73% post bronchodilators; FEV1 2.18 L; FVC 2.99 L. no significant response to bronchodilators noted. To note the FEF 2575 degrees 45% predicted.] Lung Volumes [Total lung capacity 76 % predicted; expiratory reserve volume 40% predicted] Diffusion Capacity [DLCO 70% predicted] Comparisons [none] Interpretation [There is a partially reversible obstructive ventilatory defect suggestive off asthma COPD overlap syndrome. The patient also has small airways disease. Patient also has a restrictive ventilatory defect consistent mild restrictive lung disease consistent with interstitial lung disease. Also has a mild diffusion impairment. Clinical correlation warranted.] MTDD
[2024-09-03 15:30] VITALS: PULSE 73; O2SAT 98
== END 2024-09-03 14:37 | disposition home or self-care (01) ==
LOC: HO.RESP 14:36
PROVIDERS: PCP Physician Assistant; Visit Provider Hospitalist
DX: J64 Unspecified pneumoconiosis (principal); R91.8 Other nonspecific abnormal finding of lung field
CPT/HCPCS: 94010; 94640; 94727; 94729

== ENCOUNTER → 2024-09-03 14:44 | Outpatient (BNV) | payer OTHER, SELFPAY | PROVIDERS: PCP Physician Assistant; Visit Provider Hospitalist | DX: J84.9 Interstitial pulmonary disease, unspecified (principal) | CPT/HCPCS: 94060; 94727; 94729 ==

== ENCOUNTER 2024-09-06 14:57 | Outpatient (AMB) | payer OTHER, SELFPAY ==
[2024-09-06 15:02] VITALS: BP 138/90; PULSE 76; O2SAT 96; BMI 34.8
--- NOTE | 2024-09-06 15:02 | A.OFFVIS_ITS ---
Vital Signs 09/06/24 15:02 Height 5 ft 5 in Weight 209 lb 7.026 oz BMI 34.8 BP 138/90 H Blood Pressure Location Rt brachial Position Sitting Pulse 76 Pulse Source Pulse Oximeter Pulse Oximetry (%) 96 Oxygen Delivery Method Room Air Intake Visit Reasons: Adrenal gland disorder Intake Note: New patient internally referred by PCP for Adrenal Gland Disorder. Account Supervisor Required: No Accompanied by: Significant Other Allergies No Known Allergies Allergy (Verified 09/06/24 15:11) Medication List - Last Reconciled 09/06/24 by Cuco Gtz MD albuterol sulfate 90 mcg/actuation (ProAir HFA) 2 inhalations inhalation Q6H PRN 30 days amlodipine 5 mg PO DAILY 90 days betamethasone dipropionate 0.05% 1 appl topical DAILY PRN 2 weeks cholecalciferol (vitamin D3) 50 mcg PO DAILY clotrimazole 1% 1 appl topical BID 4 weeks clotrimazole-betamethasone 1-0.05 % 1 appl topical BID 2 weeks fluticasone propionate 50 mcg/actuation 0 mcg intranasal debdxhpulmq-jmxcgxvfd-ywgdjhll 100-62.5-25 mcg (Trelegy Ellipta) 1 inh inhalation DAILY 30 days zpysronadhz-mimnegbmn-wocjkftm 200-62.5-25 mcg (Trelegy Ellipta) 1 inh inhalation DAILY 30 days gabapentin 600 mg (2 x 300 mg) PO BEDTIME lidocaine 5% (Lidoderm) 1 patch topical DAILY 30 days loratadine 10 mg PO DAILY meloxicam 15 mg PO DAILY modafinil (Provigil) 100 mg PO DAILY 30 days mycophenolate mofetil 1,000 mg (2 x 500 mg) PO BID 30 days tamsulosin 0.4 mg PO DAILY PRN tramadol 50 mg PO DAILY PRN 30 days HPI Comments Details: The patient is a 58-year-old male presenting with an incidental adrenal lesion seen on a CT scan. The lesion was not symptomatic at the time of discovery. The patient does not report any frequent episodes of sweating, palpitations, or headaches beyond an isolated incident four years ago. He denies symptoms such as abdominal pain, diarrhea, weight change, and unusual skin markings. The patient's medical history includes hypertension, for which he is on Amlodipine. He admits to easy bruising but not as a result of anticoagulation therapy. - Amlodipine for Hypertension - Cardiovascular: Denies episodes of significant sweating, palpitations, aside from one past episode four years ago. - Gastrointestinal: Denies abdominal pain and diarrhea. - Dermatologic: Denies purplish stretch craft; admits easy bruising. - General: Denies significant weight gain or weight loss. Had CT chest 03/17/2024 for which revealed 1 cm low density nodule left adrenal gland which measures -6 Hounsfield units. Denies history of spells with headache, flushing, diaphoresis, abdominal pain or diarrhea. Some weight gain, frequent infections, +easy bruisability, -development of violaceous striae. History of HTN, controlled on 1 agents. No history of anticoagulant use. Denies any weight loss, orthostatic symptoms, hypoglycemia. No history of malignancy or TB. Imaging: Labs: [facility] Medical History Chronic fatigue Silicosis Chest pain Lung mass Asthma-COPD overlap syndrome Dyspnea Pulmonary nodules Pneumoconiosis Asthma Necrotizing granulomatous inflammation of lung Organizing pneumonia Pulmonary nodules Surgical History History of lung surgery History of vasectomy Hx of cholecystectomy History of splenectomy History of knee surgery Family History Mother Embolism Father HTN (hypertension) Partial sight in both eyes Hypercholesteremia Sister Sleep apnea Kidney disease HTN (hypertension) Asthma Arthritis Paternal Grandmother Cancer Social History Housing: House Alcohol intake: never Patient Tobacco Use Status: Former Tobacco user Tobacco use type: Cigarette e-Cigarette/Vaping Use: Never Used Second Hand Smoke Exposure: No service: No Current occupational status: employed Current occupational exposures/hazards: No Cognitive needs: No Hearing needs: No Vision needs: Yes Physical Exam Vital Signs: Last Vital Signs Pulse 76 09/06/24 15:02 BP 138/90 H 09/06/24 15:02 Pulse Ox 96 09/06/24 15:02 Oxygen Delivery Method Room Air 09/06/24 15:02 BMI result Body Mass Index 34.8 Const Other: Absence of cushingoid features. Thyroid gland is normal size weighs about 15 g. There are no thyroid nodules Assessment & Plan Assessment & Plan (1) Adrenal adenoma: Code(s): D35.00 - Benign neoplasm of unspecified adrenal gland Category: Medical Plan: 58-year-old male with a history of an incidentally discovered left adrenal adenoma which appears to have benign characteristics on CAT scan with low density. We will rule out secretion of adrenal hormones Plan is to check an aldosterone, renin, DHEA-S, plasma metanephrines. We will also perform a 1 mg dexamethasone suppression test. Further workup if any will be based on the above findings 1. Adrenal Incidentaloma The patient's CT scan revealed a low-density, lipid-rich adrenal lesion likely non-cancerous. Hormonal evaluation will be performed via specific blood tests to rule out functional activity. Particular attention is given to correctly sequence testing to avoid false positives. During the consultation, I explained to the patient that the adrenal lesion is likely benign due to its low-density and lipid-rich nature. We discussed that surgical removal is unnecessary unless hormonal activity is indicated. I detailed the steps to undertake an appropriate biochemical work-up, including plasma metanephrines, aldosterone, renin levels, and the dexamethasone suppression test. The patient was advised on the importance of properly scheduling these tests to reduce the risk of inaccuracies. We also discussed the potential risks and benefits of intervention should hormonal activity be detected. The patient was informed about the requirement for follow-up based on test outcomes and that telephone communication would occur for result discussion. - Schedule and attend blood tests as instructed, ensuring the separation of specific tests as per provided directions. - Take the prescribed dexamethasone pill at 11:00 PM as directed the night before the cortisol test. - Continue taking Amlodipine for blood pressure management. - Expect a follow-up call regarding test results and potential next steps. - Report any new or worsening symptoms to the office promptly. . The patient had an opportunity to ask questions regarding treatment plan. The patient expressed understanding and agreement with the above treatment plan. Patient was informed and verbally consented to the use of an ambient scribe for clinic note documentation during this visit. Orders: Orders Dexamethasone 1 Week D35.00 - Benign neoplasm of unspecified adrenal gland Cortisol Random 1 Week D35.00 - Benign neoplasm of unspecified adrenal gland Metanephrines, Plasma Today D35.00 - Benign neoplasm of unspecified adrenal gland DHEA Sulfate Today D35.00 - Benign neoplasm of unspecified adrenal gland Aldosterone Today D35.00 - Benign neoplasm of unspecified adrenal gland Renin Today D35.00 - Benign neoplasm of unspecified adrenal gland Medications: New dexamethasone 1 mg PO ONCE 1 tab 0RF Coding Level of Care Code New Pt Level 4 (16876) Diagnoses Adrenal adenoma D35.00
--- OUTSIDE RECORDS SUMMARY | 2024-09-06 15:03 | XMS_ITS | Clinical Summary ---
Author Organization [facility] Address [address] [place] [address] Care Team Providers Care Sterile Preparation Technician Name Role Phone Manuel Coleman MD Primary Care Provider [phone] Allergies No known active allergies Medications Medication [...] age to complete this topic Care Teams Sterile Preparation Technician Relationship Specialty Start Date End Date Manuel Coleman MD [address] [place], [place] [address] [address] PCP - General Hospitalist Medicine 05/09/22
== END 2024-09-06 15:41 | disposition home or self-care (01) ==
LOC: HO.ENCR 14:58
PROVIDERS: PCP Internal Medicine; Visit Provider Internal Medicine Endocrinology, Diabetes & Metabolism
DX: D35.00 Benign neoplasm of unspecified adrenal gland (principal)
CPT/HCPCS: 99204

== ENCOUNTER → 2024-09-06 14:57 | Outpatient (BNVA) | payer OTHER, SELFPAY | PROVIDERS: PCP Internal Medicine; Visit Provider Internal Medicine Endocrinology, Diabetes & Metabolism ==

== ENCOUNTER 2024-09-08 07:47 | Outpatient (REF) | payer OTHER, SELFPAY ==
--- OUTSIDE RECORDS SUMMARY | 2024-09-08 07:50 | XMS_ITS | Encounter Summary ---
Author Organization [facility] Address [address] [place] [address] Care Team Providers Care Rag Cutting Machine Feeder Name Role Phone Manuel Coleman Primary Care Provider [phone] Encounter Details Date Type Department Care Team Description 09/05/2022 Orders Only Medical Records [address] [place] [address] Mode Wilson MD [address] [place] [address] [address] [place] [address] Social History Tobacco Use Types Packs/Day Years [...] Date/Time Associated Diagnosis Comments OUTSIDE PATHOLOGY Routine 09/03/2022 documented in this encounter Results * OUTSIDE PATHOLOGY (09/03/2022) Mode Wilson MD OUTSIDE LAB documented in this encounter Visit Diagnoses Not on filedocumented in this encounter Care Teams Rag Cutting Machine Feeder Relationship Specialty Start Date End Date Manuel Coleman [address] [place] [address] PCP - General Internal Medicine 09/28/21 documented as of this encounter
--- OUTSIDE RECORDS SUMMARY | 2024-09-08 07:50 | XMS_ITS | Encounter Summary ---
Author Organization [facility] Address [address] [place] [address] Care Team Providers Care Manager Of Quality Name Role Phone Jaquan Red MD Primary Care Provider Manuel Pruitt Primary Care Provider [phone] Encounter Details Date Type Department Care Team Description 01/25/2019 Newscast Director Report Medical Records [address] [place] [address] Jennifer Ellison MD [address] [place] [address] Social History Tobacco Use Types Packs/Day Years [...] filedocumented in this encounter Care Teams Manager Of Quality Relationship Specialty Start Date End Date Jaquan Red MD PCP - General Internal Medicine 08/23/14 09/27/21 Manuel Coleman [address] [place] [address] PCP - General Internal Medicine 09/28/21 documented as of this encounter
--- OUTSIDE RECORDS SUMMARY | 2024-09-08 07:50 | XMS_ITS | Encounter Summary ---
Author Organization [facility] Address [address] [place] [address] Care Team Providers Care Agriculture Manager Name Role Phone Jaquan Red MD Primary Care Provider Manuel Pruitt Primary Care Provider Encounter Details Date Type Department Care Team Description 02/22/2019 Hospital Medical Records [address] [place] [address] Jennifer Ellison MD [address] [place] [address] Social History Tobacco Use Types Packs/Day Years [...] on filedocumented in this encounter Care Teams Agriculture Manager Relationship Specialty Start Date End Date Jaquan Red MD PCP - General Internal Medicine 08/23/14 09/27/21 Manuel Coleman [address] [place] [address] PCP - General Internal Medicine 09/28/21 documented as of this encounter
--- OUTSIDE RECORDS SUMMARY | 2024-09-08 07:50 | XMS_ITS | Encounter Summary ---
Author Organization [facility] Address [address] [place] [address] Care Team Providers Care Telephone Answerer Name Role Phone Jaquan Red MD Primary Care Provider Manuel Pruitt Primary Care Provider [phone] Encounter Details Date Type Department Care Team Description 07/15/2019 Communication Instructor Report Medical Records [address] [place] [address] Mikhail Don MD Social History Tobacco Use [...] on filedocumented in this encounter Care Teams Telephone Answerer Relationship Specialty Start Date End Date Jaquan Red MD PCP - General Internal Medicine 08/23/14 09/27/21 Manuel Coleman [address] [place] [address] PCP - General Internal Medicine 09/28/21 documented as of this encounter
--- OUTSIDE RECORDS SUMMARY | 2024-09-08 07:50 | XMS_ITS | Encounter Summary ---
Author Organization [facility] Address [address] [place] [address] Care Team Providers Care Pest Control Operator Name Role Phone Manuel Coleman Primary Care Provider [phone] Encounter Details Date Type Department Care Team Description 07/12/2022 Telephone Adult Medicine [address] [address] Francisco Grigsby PA-C [address] [place] [address] Social History Tobacco Use Types Packs/Day Years [...] on filedocumented in this encounter Care Teams Pest Control Operator Relationship Specialty Start Date End Date Manuel Coleman [address] [place] [address] PCP - General Internal Medicine 09/28/21 documented as of this encounter
--- OUTSIDE RECORDS SUMMARY | 2024-09-08 07:50 | XMS_ITS | Encounter Summary ---
Author Organization [facility] Address [address] [place] [address] Care Team Providers Care Manager Food Safety Name Role Phone Jaquan Red MD Primary Care Provider Manuel Pruitt Primary Care Provider [phone] Encounter Details Date Type Department Care Team Description 09/15/2014 Release of Information Medical Records [address] [place] [address] Abstract, Provider Social History Tobacco Use Types [...] filedocumented in this encounter Care Teams Manager Food Safety Relationship Specialty Start Date End Date Jaquan Red MD PCP - General Internal Medicine 08/23/14 09/27/21 Manuel Coleman [address] [place] [address] PCP - General Internal Medicine 09/28/21 documented as of this encounter
--- OUTSIDE RECORDS SUMMARY | 2024-09-08 07:50 | XMS_ITS | Encounter Summary ---
Author Organization [facility] Address [address] [place] [address] Care Team Providers Care Marketing Communications Manager Name Role Phone Manuel Coleman Primary Care Provider [phone] Encounter Details Date Type Department Care Team Description 09/11/2022 Telephone Gastroenterology [facility] 175 [facility] [address] [place] [phone] Bacilio Jeter PA-C [address] [address] Social History Tobacco Use Types Packs/Day Years [...] that soif he cannot afford it at [facility] or [facility], then he should consider going to [facility] to purchase the medication. * Telephone [...] on filedocumented in this encounter Care Teams Marketing Communications Manager Relationship Specialty Start Date End Date Manuel Coleman [address] [place] [address] PCP - General Internal Medicine 09/28/21 documented as of this encounter
--- OUTSIDE RECORDS SUMMARY | 2024-09-08 07:50 | XMS_ITS | Encounter Summary ---
Author Organization [facility] Address [address] [place] [address] Care Team Providers Care Typists Supervisor Name Role Phone Jaquan Red MD Primary Care Provider Manuel Pruitt Primary Care Provider [phone] Encounter Details Date Type Department Care Team Description 05/03/2021 Child Care Associate Report Medical Records [address] [place] [address] Mikhail Don MD Social History Tobacco Use [...] on filedocumented in this encounter Care Teams Typists Supervisor Relationship Specialty Start Date End Date Jaquan Red MD PCP - General Internal Medicine 08/23/14 09/27/21 Manuel Coleman [address] [place] [address] PCP - General Internal Medicine 09/28/21 documented as of this encounter
--- OUTSIDE RECORDS SUMMARY | 2024-09-08 07:50 | XMS_ITS | Encounter Summary ---
Author Organization [facility] Address [address] [place] [address] Care Team Providers Care Teacher Asst Name Role Phone Jaquan Red MD Primary Care Provider Manuel Pruitt Primary Care Provider [phone] Encounter Details Date Type Department Care Team Description 02/01/2019 Release of Information Medical Records [address] [place] [id number] Abstract, Provider Social History Tobacco Use Types [...] on filedocumented in this encounter Care Teams Teacher Asst Relationship Specialty Start Date End Date Jaquan Red MD PCP - General Internal Medicine 08/23/14 09/27/21 Manuel Coleman [address] [place] [address] PCP - General Internal Medicine 09/28/21 documented as of this encounter
--- OUTSIDE RECORDS SUMMARY | 2024-09-08 07:50 | XMS_ITS | Clinical Summary ---
Author Organization [facility] Address [address] [place] [address] Care Team Providers Care Game Developer Name Role Phone Manuel Coleman MD Primary Care Provider [phone] Allergies No known active allergies Medications Medication [...] age to complete this topic Care Teams Game Developer Relationship Specialty Start Date End Date Manuel Coleman MD [address] [place], [place] [address] [address] PCP - General Hospitalist Medicine 05/09/22
--- OUTSIDE RECORDS SUMMARY | 2024-09-08 07:50 | XMS_ITS | Encounter Summary ---
Author Organization [facility] Address [address] [place] [address] Care Team Providers Care Echocardiography Tech Name Role Phone Manuel Coleman Primary Care Provider [phone] Reason for Visit * Reason Comments E-prescribe Rx Request Encounter Details Date Type Department Care Team Description 02/13/2023 Refill [facility] [address] [phone] Dane De Leon MD [address] [address] E-prescribe Rx Request Social History Tobacco Use [...] leg documented in this encounter Care Teams Echocardiography Tech Relationship Specialty Start Date End Date Manuel Coelman [address] [place] [address] PCP - General Internal Medicine 09/28/21 documented as of this encounter
--- OUTSIDE RECORDS SUMMARY | 2024-09-08 07:50 | XMS_ITS | Encounter Summary ---
Author Organization [facility] Address [address] [place] [address] Care Team Providers Care Recording Studio Intern Name Role Phone Jaquan Red MD Primary Care Provider Manuel Pruitt Primary Care Provider [phone] Encounter Details Date Type Department Care Team Description 01/03/2021 Laboratory Apparatus Glass Blower Report Medical Records [address] [place] [address] Jeremy Kinney Social History Tobacco Use Types [...] on filedocumented in this encounter Care Teams Recording Studio Intern Relationship Specialty Start Date End Date Jaquan Red MD PCP - General Internal Medicine 08/23/14 09/27/21 Manuel Coleman [address] [place] [address] PCP - General Internal Medicine 09/28/21 documented as of this encounter
--- OUTSIDE RECORDS SUMMARY | 2024-09-08 07:50 | XMS_ITS | Encounter Summary ---
Author Organization [facility] Address [address] [place] [address] Care Team Providers Care Digital Marketing Executive Name Role Phone Manuel Coleman Primary Care Provider [phone] Encounter Details Date Type Department Care Team Description 10/20/2023 Orders Only Medical Records [address] [place] [address] John Scott Np Social History Tobacco Use [...] this encounter Results * OUTSIDE PATHOLOGY (10/13/2023) Environmental Conservation Officer John Scott OUTSIDE LAB documented in this encounter Visit Diagnoses Not on filedocumented in this encounter Care Teams Digital Marketing Executive Relationship Specialty Start Date End Date Manuel Coleman [address] [place], [place] [id number] PCP - General Internal Medicine 09/28/21 documented as of this encounter
--- OUTSIDE RECORDS SUMMARY | 2024-09-08 07:50 | XMS_ITS | Encounter Summary ---
Author Organization [facility] Address [address] [place] [address] Care Team Providers Care Signals Collector/Analyst Name Role Phone Jaquan Red MD Primary Care Provider Manuel Pruitt Primary Care Provider [phone] Encounter Details Date Type Department Care Team Description 06/01/2019 Hoop Cutter Report Medical Records [address] [place] [address] Luis Kingsley MD Social History Tobacco Use [...] on filedocumented in this encounter Care Teams Signals Collector/Analyst Relationship Specialty Start Date End Date Jaquan Red MD PCP - General Internal Medicine 08/23/14 09/27/21 Manuel Coleman [address] [place] [address] PCP - General Internal Medicine 09/28/21 documented as of this encounter
--- OUTSIDE RECORDS SUMMARY | 2024-09-08 07:50 | XMS_ITS | Encounter Summary ---
Author Organization [facility] Address [address] [place] [address] Care Team Providers Care Quality Assurance Inspector Name Role Phone Jaquan Red MD Primary Care Provider Manuel Pruitt Primary Care Provider [phone] Encounter Details Date Type Department Care Team Description 07/19/2021 Computer Typesetter Keyliner Report Medical Records [address] [place] [address] Jeremy Kinney Social History Tobacco Use Types [...] on filedocumented in this encounter Care Teams Quality Assurance Inspector Relationship Specialty Start Date End Date Jaquan Red MD PCP - General Internal Medicine 08/23/14 09/27/21 Manuel Coleman [address] [place] [address] PCP - General Internal Medicine 09/28/21 documented as of this encounter
--- OUTSIDE RECORDS SUMMARY | 2024-09-08 07:50 | XMS_ITS | Encounter Summary ---
Author Organization [facility] Address [address] [place] [address] Care Team Providers Care Vamp Cut Out Worker Name Role Phone Jaquan Red MD Primary Care Provider Manuel Pruitt Primary Care Provider [phone] Encounter Details Date Type Department Care Team Description 11/04/2014 Transfer Records Medical Records [address] [place] [address] Abstract, Provider Social History Tobacco Use Types [...] on filedocumented in this encounter Care Teams Vamp Cut Out Worker Relationship Specialty Start Date End Date Jaquan Red MD PCP - General Internal Medicine 08/23/14 09/27/21 Manuel Coleman [address] [place] [address] PCP - General Internal Medicine 09/28/21 documented as of this encounter
--- OUTSIDE RECORDS SUMMARY | 2024-09-08 07:50 | XMS_ITS | Encounter Summary ---
Author Organization [facility] Address [address] [place] [address] Care Team Providers Care International Bank Manager Name Role Phone Jaquan Red MD Primary Care Provider Manuel Pruitt Primary Care Provider Encounter Details Date Type Department Care Team Description 06/08/2019 Transplant Case Manager Report Medical Records [address] [place] [address] Jabari Meneses, [place] Social History Tobacco Use [...] on filedocumented in this encounter Care Teams International Bank Manager Relationship Specialty Start Date End Date Jaquan Red MD PCP - General Internal Medicine 08/23/14 09/27/21 Manuel Coleman [address] [place] [address] PCP - General Internal Medicine 09/28/21 documented as of this encounter
--- OUTSIDE RECORDS SUMMARY | 2024-09-08 07:50 | XMS_ITS | Encounter Summary ---
Author Organization [facility] Address [address] [place] [address] Care Team Providers Care Stonecutter Apprentice Hand Name Role Phone Jaquan Red MD Primary Care Provider Manuel Pruitt Primary Care Provider [phone] Encounter Details Date Type Department Care Team Description 06/16/2020 Rn Charge Report Medical Records [address] [place] [address] Mikhail Don MD Social History Tobacco Use [...] on filedocumented in this encounter Care Teams Stonecutter Apprentice Hand Relationship Specialty Start Date End Date Jaquan Red MD PCP - General Internal Medicine 08/23/14 09/27/21 Manuel Coleman [address] [place] [address] PCP - General Internal Medicine 09/28/21 documented as of this encounter
--- OUTSIDE RECORDS SUMMARY | 2024-09-08 07:50 | XMS_ITS | Encounter Summary ---
Author Organization [facility] Address [address] [place] [address] Care Team Providers Care Finishing Inspector Name Role Phone Manuel Coleman Primary Care Provider [phone] Encounter Details Date Type Department Care Team Description 10/01/2021 Transfer Records Medical Records [address] [place] [address] Abstract, Provider Social History Tobacco Use Types [...] on filedocumented in this encounter Care Teams Finishing Inspector Relationship Specialty Start Date End Date Manuel Coleman [address] [place] [address] PCP - General Internal Medicine 09/28/21 documented as of this encounter
--- OUTSIDE RECORDS SUMMARY | 2024-09-08 07:50 | XMS_ITS | Encounter Summary ---
Author Organization [facility] Address [address] [place] [address] Care Team Providers Care Manager Core Name Role Phone Manuel Coleman Primary Care Provider [phone] Encounter Details Date Type Department Care Team Description 03/13/2022 Glass Blowing Instructor Report Medical Records [address] [place] [address] Brendon Roberts MD Social History Tobacco Use Types Packs/Day [...] filedocumented in this encounter Care Teams Manager Core Relationship Specialty Start Date End Date Manuel Coleman [address] [place], [place] [phone] PCP - General Internal Medicine 09/28/21 documented as of this encounter
--- OUTSIDE RECORDS SUMMARY | 2024-09-08 07:50 | XMS_ITS | Encounter Summary ---
Author Organization [facility] Address [address] [place] [address] Care Team Providers Care Meat Inspector Name Role Phone Jaquan Red MD Primary Care Provider Manuel Pruitt Primary Care Provider [phone] Encounter Details Date Type Department Care Team Description 10/25/2019 Ice Bag Assembler Report Medical Records [address] [place] [address] Mikhail Don MD Social History Tobacco Use [...] on filedocumented in this encounter Care Teams Meat Inspector Relationship Specialty Start Date End Date Jaquan Red MD PCP - General Internal Medicine 08/23/14 09/27/21 Manuel Coleman [address] [place] [address] PCP - General Internal Medicine 09/28/21 documented as of this encounter
--- OUTSIDE RECORDS SUMMARY | 2024-09-08 07:50 | XMS_ITS | Encounter Summary ---
Author Organization [facility] Address [address] [place] [address] Care Team Providers Care Fuse Cutter Name Role Phone Jaquan Red MD Primary Care Provider Manuel Pruitt Primary Care Provider [phone] Encounter Details Date Type Department Care Team Description 12/04/2018 Orders Only Medical Records [address] [place] [address] Abstract, Provider Mass of left lung; Tobacco [...] lung documented in this encounter Care Teams Fuse Cutter Relationship Specialty Start Date End Date Jaquan Red MD PCP - General Internal Medicine 08/23/14 09/27/21 Manuel Coleman [address] [place] [address] PCP - General Internal Medicine 09/28/21 documented as of this encounter
--- OUTSIDE RECORDS SUMMARY | 2024-09-08 07:50 | XMS_ITS | Encounter Summary ---
Author Organization [facility] Address [address] [place] [address] Care Team Providers Care Lidar Technician Name Role Phone Jaquan Red MD Primary Care Provider Manuel Pruitt Primary Care Provider [phone] Reason for Visit * Reason Onset Date Comments medication problems 04/30/2016 Encounter Details Date Type Department Care Team Description 04/30/2016 Telephone Adult Medicine [address] [address] Jaquan Red MD medication problems Social History [...] on filedocumented in this encounter Care Teams Lidar Technician Relationship Specialty Start Date End Date Jaquan Red MD PCP - General Internal Medicine 08/23/14 09/27/21 Manuel Coleman [address] [place] [address] PCP - General Internal Medicine 09/28/21 documented as of this encounter
--- OUTSIDE RECORDS SUMMARY | 2024-09-08 07:50 | XMS_ITS | Encounter Summary ---
Author Organization [facility] Address [address] [place] [address] Care Team Providers Care Nurse'S Aides Teacher Name Role Phone Jaquan Red MD Primary Care Provider Manuel Pruitt Primary Care Provider [phone] Reason for Visit * Reason Onset Date Comments Can Reforming Machine Operator Feedback 11/19/2016 PET Encounter Details Date Type Department Care Team Description 11/19/2016 Telephone Adult Medicine [address] [address] Jaquan Red MD Can Reforming Machine Operator Feedback (PET) Social History Tobacco [...] on filedocumented in this encounter Care Teams Nurse'S Aides Teacher Relationship Specialty Start Date End Date Jaquan Red MD PCP - General Internal Medicine 08/23/14 09/27/21 Manuel Coleman [address] [place] [address] PCP - General Internal Medicine 09/28/21 documented as of this encounter
--- OUTSIDE RECORDS SUMMARY | 2024-09-08 07:50 | XMS_ITS | Encounter Summary ---
Author Organization [facility] Address [address] [place] [address] Care Team Providers Care Final Finisher Name Role Phone Manuel Coleman Primary Care Provider [phone] Reason for Visit * Reason Onset Date Comments Medication 08/20/2022 Encounter Details Date Type Department Care Team Description 08/20/2022 Refill Gastroenterology [facility] [place] [address] [facility] [address] [place] [id number] Mode Wilson MD 175 [facility] [address] [place] [address] Medication Social History Tobacco Use Types Packs/Day [...] on filedocumented in this encounter Care Teams Final Finisher Relationship Specialty Start Date End Date Manuel Coleman [address] [place] [address] PCP - General Internal Medicine 09/28/21 documented as of this encounter
[2024-09-09 07:59] LABS: DHEA Sulfate 157 mcg/dL (32-279)
[2024-09-13 19:13] LABS: Metanephrine, Free 33 pg/mL (<=57); Normetanephrines, Free 118 pg/mL (<=148); Total Metanephrine, Free 151 pg/mL (<=205)
[2024-09-14 16:58] LABS: Renin 1.08 ng/mL/h (0.25-5.82)
== END 2024-09-08 07:48 | disposition home or self-care (01) ==
LOC: HO.LAB 07:47
PROVIDERS: Visit Provider Internal Medicine Endocrinology, Diabetes & Metabolism
DX: D35.02 Benign neoplasm of left adrenal gland (principal)
CPT/HCPCS: 36415; 82088; 82627; 83835; 84244

== ENCOUNTER 2024-09-15 07:43 | Outpatient (REF) | payer OTHER, SELFPAY ==
[2024-09-15 08:54] LABS: Blood Urea Nitrogen 20 mg/dL (9-16); Estimated Glomerular Filt Rate > 60
[2024-09-15 09:35] LABS: Cortisol Random < 1.0 ug/dL
[2024-09-30 14:38] LABS: Dexamethasone 467 ng/dL
== END 2024-09-15 07:44 | disposition home or self-care (01) ==
LOC: HO.LAB 07:43
PROVIDERS: Internal Medicine; Visit Provider Internal Medicine Endocrinology, Diabetes & Metabolism
DX: D35.02 Benign neoplasm of left adrenal gland (principal)
CPT/HCPCS: 36415; 80299; 82533; 82565; 84520

== ENCOUNTER 2024-09-23 15:00 | Outpatient (REF) | payer OTHER, SELFPAY ==
--- OUTSIDE RECORDS SUMMARY | 2024-09-23 15:04 | XMS_ITS | Clinical Summary ---
Author Organization [facility] Address [address] [place] [address] Care Team Providers Care Photography Spotter Name Role Phone Manuel Coleman MD Primary Care Provider [phone] Allergies No known active allergies Medications Medication [...] age to complete this topic Care Teams Photography Spotter Relationship Specialty Start Date End Date Manuel Coleman MD [address] [place], [place] [address] [address] PCP - General Hospitalist Medicine 05/09/22
== END 2024-09-23 15:01 | disposition home or self-care (01) ==
LOC: HO.LAB 15:00
PROVIDERS: PCP Internal Medicine; Visit Provider Internal Medicine
DX: Z13.89 Encounter for screening for other disorder (principal)

== ENCOUNTER 2024-09-25 07:22 | Outpatient (REF) | payer OTHER, SELFPAY ==
[2024-09-25 08:24] LABS: Alanine Aminotransferase 37 U/L (0-40); Albumin Level 4.4 g/dL (3.5-5.0); Alkaline Phosphatase 106 U/L (39-117); Anion Gap 11 (12-20); Aspartate Amino Transferase 28 U/L (5-37); Bilirubin Total 1.3 mg/dL (0.0-1.0); Blood Urea Nitrogen 23 mg/dL (9-16); Calcium 9.3 mg/dL (8.4-10.2); Carbon Dioxide 24 mmol/L (22-29); Chloride 110 mmol/L (96-108); Cholesterol 168 mg/dL (<200); Estimated Glomerular Filt Rate > 60; Glucose Fasting 102 mg/dL (60-99); HDL Cholesterol 42 mg/dL (>40); LDL Cholesterol Calculated 106 mg/dL (<100); Potassium 3.9 mmol/L (3.3-5.1); Sodium 141 mmol/L (135-145); Total Protein 7.3 g/dL (6.5-8.0); Triglycerides 101 mg/dL (<150)
== END 2024-09-25 07:23 | disposition home or self-care (01) ==
LOC: HO.LAB 07:22
PROVIDERS: PCP Internal Medicine; Visit Provider Internal Medicine
DX: I10 Essential (primary) hypertension (principal); E66.811 Obesity, class 1; Z68.34 Body mass index [BMI] 34.0-34.9, adult; E78.5 Hyperlipidemia, unspecified
CPT/HCPCS: 36415; 80053; 80061

== ENCOUNTER 2024-10-12 09:43 | Outpatient (REF) | payer OTHER, SELFPAY ==
--- NOTE | ~2024-10-12 | US_ITS ---
EXAMINATION: US LOWER EXTREMITY VENOUS (REFLUX EXAM), BILATERAL CLINICAL INFORMATION: Varices. COMPARISON: None. TECHNIQUE: Color flow triplex imaging and compression Doppler was performed to evaluate both the deep and the superficial systems bilaterally. To evaluate the superficial system, the examination was performed in the upright position. Color-flow Doppler ultrasound and compression ultrasound were utilized. In addition, maneuvers were utilized to demonstrate reflux. FINDINGS: 1. DEEP VENOUS ULTRASOUND OF THE RIGHT LOWER EXTREMITY: Common Femoral Vein: Compressible, normal respiratory variation and augmented flow. Femoral Vein: Compressible, normal color flow and augmentation. Popliteal Vein: Compressible, normal augmentation. Deep Reflux: There is no evidence of reflux in the deep system in either the common femoral vein, superficial femoral or the popliteal vein. There is no evidence of a Brizuela's cyst. 2. SUPERFICIAL ULTRASOUND WITH DOPPLER OF RIGHT LOWER EXTREMITY: GREAT SAPHENOUS VEIN: Saphenofemoral Junction: 0.7 cm; Reflux: 0 ms Proximal Thigh: 0.4 cm; Reflux: 0 ms Mid Thigh: 0.3 cm; Reflux: 0 ms Distal Thigh: 0.3 cm; Reflux: 0 ms At Knee: 0.4 cm; Reflux: 0 ms Proximal Calf: 0.2 cm; Reflux: 0 ms Mid Calf: 0.2 cm; Reflux: 0 ms Distal Calf: 0.3 cm; Reflux: 0 ms DUPLICATED MEDIAL GREAT SAPHENOUS VEIN: Diameter: 0.3 cm. Reflux: NA DUPLICATED LATERAL GREAT SAPHENOUS VEIN: Diameter: None imaged Reflux: NA SMALL SAPHENOUS VEIN: Saphenopopliteal Junction: 0.2 cm; Reflux: 0 ms Proximal: 0.2 cm; Reflux: 0 ms Distal: 0.2 cm; Reflux: 0 ms VEIN OF GIACOMINI: Size: NA Reflux: NA PERFORATORS: Location: None imaged Size: NA Reflux: NA VARICOSITIES: Location: None imaged. Size: NA Reflux: NA 3. DEEP VENOUS ULTRASOUND OF THE LEFT LOWER EXTREMITY: Common Femoral Vein: Compressible, normal respiratory variation and augmented flow. Femoral Vein: Compressible, normal color flow and augmentation. Popliteal Vein: Compressible, normal augmentation. Deep Reflux: There is no evidence of reflux in the deep system in either the common femoral vein, superficial femoral or the popliteal vein. There is no evidence of a Brizuela's cyst. 4. SUPERFICIAL ULTRASOUND WITH DOPPLER OF LEFT LOWER EXTREMITY: GREAT SAPHENOUS VEIN: Saphenofemoral Junction: 0.7 cm; Reflux: 0 ms Proximal Thigh: 0.3 cm; Reflux: 0 ms Mid Thigh: 0.3 cm; Reflux: 0 ms Distal Thigh: 0.2 cm; Reflux: 0 ms At Knee: 0.3 cm; Reflux: 0 ms Proximal Calf: 0.2 cm; Reflux: 0 ms Mid Calf: 0.2 cm; Reflux: 0 ms Distal Calf: 0.2 cm; Reflux: 0 ms DUPLICATED MEDIAL GREAT SAPHENOUS VEIN: Diameter: None imaged Reflux: NA DUPLICATED LATERAL GREAT SAPHENOUS VEIN: Diameter: 0.4 cm. Reflux: NA SMALL SAPHENOUS VEIN: Saphenopopliteal Junction: 0.2 cm; Reflux: 0 ms Proximal: 0.2 cm; Reflux: 0 ms Distal: 0.2 cm; Reflux: 0 ms VEIN OF GIACOMINI: Size: NA Reflux: NA PERFORATORS: Location: Mid calf. Size: 0.2 cm. Reflux: NA VARICOSITIES: Location: None Imaged Size: NA Reflux: NA US/US venous insuf bilat IMPRESSION: Right: No venous insufficiency. No varices. Left: No venous insufficiency. No varices. Perforators in the mid calf without reflux. Electronically signed by: Nathan Godinez MD 10/12/2024 10:45 AM EDT
--- NOTE | ~2024-10-12 | CT_ITS ---
CLINICAL HISTORY: D35.00 - Benign neoplasm of unspecified adrenal gland --- Additional Notes or Speci al Instructions: Adrenal protocol CT abdomen without contrast Comparison: None provided Findings: Left basilar scarring/atelectasis lung bases are otherwise clear. Status post cholecystectomy. A 1.3 cm nodularity of the left adrenal gland which measures fat density (less than 10 Hounsfield units) consistent with benign adrenal adenoma. The solid organs are otherwise within normal limits. No renal stones. No bowel obstruction, pneumoperitoneum, or pneumatosis. Normal appendix within the right lower quadrant. The bones are intact. IMPRESSION: No acute findings. A 1.3 cm nodularity of the left adrenal gland which measures fat density (less than 10 Hounsfield units) consistent with a benign adrenal adenoma. This document has been electronically signed by: Oliver Haddad MD on 10/12/2024 20:27:42
--- OUTSIDE RECORDS SUMMARY | 2024-10-12 10:45 | XMS_ITS | Clinical Summary ---
Author Organization [facility] Address [address] [place] [address] Care Team Providers Care Stock Fitter Name Role Phone Manuel Coleman MD Primary Care Provider [phone] Allergies No known active allergies Medications Medication [...] Colon Cancer Screening (Colonoscopy) 10/07/2011 Influenza Vaccine (Season Ended) 2024 01/27/2020, 05/09/2016, 05/09/2016, Additional history exists Pneumococcal Vaccine (3 of 3 - PPSV23 or PCV20) 01/26/2025 01/27/2020, 08/27/2017 DTap / Tdap / Td (2 - Td or Tdap) 05/09/2026 05/09/2016 RSV Ped < 20 months Aged Out No longe r eligible based on patient's age to complete this topic Care Teams Stock Fitter Relationship Specialty Start Date End Date Manuel Coleman MD [address] [place], [place] [address] [address] PCP - General Hospitalist Medicine 05/09/22
== END 2024-10-12 09:44 | disposition home or self-care (01) ==
LOC: HO.US 09:43
PROVIDERS: PCP Internal Medicine; Visit Provider Surgery Vascular Surgery
DX: I83.11 Varicose veins of right lower extremity with inflammation (principal); D35.00 Benign neoplasm of unspecified adrenal gland
CPT/HCPCS: 74150; 93970

== ENCOUNTER → 2024-10-12 09:47 | Outpatient (BNV) | payer OTHER, SELFPAY | PROVIDERS: PCP Internal Medicine; Visit Provider Radiology Diagnostic Radiology | DX: D35.02 Benign neoplasm of left adrenal gland (principal); I83.11 Varicose veins of right lower extremity with inflammation | CPT/HCPCS: 74150; 93970 ==

== ENCOUNTER 2024-10-18 15:03 | Outpatient (AMB) | payer OTHER, SELFPAY ==
--- NOTE | 2024-10-18 15:07 | MHC.OFFVIS ---
Vital Signs 10/18/24 15:14 Height 5 ft 5 in Weight 207 lb 3.752 oz BMI 34.5 BP 134/76 Blood Pressure Location Lt brachial Position Sitting Pulse 75 Pulse Source Pulse Oximeter Pulse Oximetry (%) 95 Oxygen Delivery Method Room Air Intake Visit Reasons: Asthma Registered Nurse Maternity Required: No Allergies No Known Allergies Allergy (Verified 10/18/24 15:17) HPI Comments Details: The patient is a 59-year-old gentleman with a known history of nodular densities. Apparently back in 2017 he had a shoulder injury and he went to get an x-ray. His x-ray was abnormal with the an abnormal finding on the lung field. Therefore he underwent a CT scan of the chest demonstrating a masslike density in the left upper lobe area. He also had other densities. He had a PET scan apparently was positive in had a biopsy at that time. CT guided biopsy demonstrated that he had some inflammation although nondiagnostic. Then everything was left alone until again 2018 when he was not feeling well. He was having some malaise symptoms along with not feeling well. Denied any respiratory symptoms the time. He underwent a repeat imaging study and subsequently repeat biopsy demonstrating now giant cell allergic reaction along with what appears to be a foreign body reaction. The patient all the really was referred to a thoracic surgery where he had a wedge resection. 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 Also to note that hypersensitivity panel was significantly elevated for a lot of mold. His microbiology from the wedge resections are still pending no growth today. No evidence of any acid-fast disease. He is tolerating the Breo inhaler and this appears to be helping. Denies any productive coughing or significant wheezing. He does have a dry cough at times and times he can not be barking nature. He does still get some discomfort to the left side does with the area that he had a surgery in addition to the fact that he does some heavy lifting at work. We did review his CT scan from November 2018 in addition to his CT scan from May 2019. The left upper lobe masslike densities pre similar in anything possibly little larger in size. The other nodular densities phone in the lingula and also in the left lower lobe have appear to be improved. Still has a emphysematous changes the unilateral side. Plan to repeat the CT scan sometime in February and at that time depending on the findings with decide to potentially do a bronchoscopy. We did review all the cultures from [facility] in all were negative for any mycobacterial infections or fungal infections. 05/24/2022 the patient is here for a pulmonary follow-up visit. He did start using the CPAP. The CPAP therapy has been affecting beneficial. He has been tolerating the BiPAP. However, he was not tolerating the mask that he did get from the [employer]. He did better with the mask that he had from the sleep study. Therefore I did request that which was stated N20 large mask. he does need to get a chinstrap to minimize under dryness of the mouth. The pain continues to be initial. 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 He knows to minimize the medication if possible. He also uses Lidoderm patch that to help him really get some relief as well. He has been using his respiratory medications in addition to the Daliresp. he will continue to struggle with his chronic respiratory complaints including the chest discomfort in the shortness of breath that he is slowly working to try to improved although it it is a significant limitation in a quality of life issue for him and his family. 10/07/2022 the patient is here for pulmonary follow-up visit. He has been having hard time lately with increasing shortness of breath. Complains of chest tightness and fatigue. Sometimes hard for him to get to work. At work he does wear a mask when needed. Although he still feels like he is getting exposed to significant amount of in organic dust in his work environment and also in other areas. I do believe the patient has likely more inflammatory changes.. The CT scan of the chest demonstrating interval increase in his airspace disease which is concerning. Will go ahead and treated with some prednisone to see if this helps decrease inflammation and hopefully his symptoms as well. 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 In view of the slight increase in size of his left upper lobe parenchymal process taking view important for additional evaluation. Will even consider re-biopsy of this area. Although, the initial biopsy was and still is painful. The patient also continues uses CPAP every night. CPAP therapy continues to be affecting beneficial. He does use it for more than 4 hours a night. He has been getting supplies readily. Pain control he has been using as needed tramadol and also will try the prednisone to decrease inflammation at this time. 11/07/2022 The patient is here for a pulmonary follow up. The patient feels like it is getting worse. Complains of worsening dyspnea worsening fatigue. Also having worsening left-sided chest discomfort. Based on his last CT scan there was some interval increase in the area of airspace disease. He did take the trial of prednisone but did not see any significant improvement. He does continue with his respiratory therapy and also he has been using the CPAP at nighttime. The CPAP therapy continues to be affecting beneficial. He is scheduled to go to [place] for 2nd opinion the end of November. At this point would be prudent in view of his worsening symptoms to have him stay out of work until that evaluation. 02/07/2023 the patient is here for pulmonary follow-up visit. Overall he is doing about the same. He is back to work. The patient needs to wear respirator. He is concerned about the worsening density in his lung. He was referred to [place] will be reviewing the pathology in the radiology and getting back to us. Depending on the findings will likely place him on immunomodulator for period time and then reimage closer to a year from his last CT scan which be in July 2023. we did talk about potentially methotrexate or mycophenolate as potential medications. Will have blood work today to assess his blood work prior to starting the medication. The patient continues uses CPAP every night CPAP therapy continues to be affecting beneficial when he does use it for more than 4 hours a night. Also continues with respiratory therapy. 05/09/2023 the patient is here for pulmonary follow-up visit. The patient has been working with respirator and seems to be working well. He is monitoring closely his weight he has had some weight gain that unfortunately is going to affect his respiratory capacity as well. He is looking in to getting involved in a weight loss program. In the meantime we have not heard back from the 2nd opinion on his pathology. Were hoping to get the pathology reading from [facility] in order to start him on immunomodulator therapy. At this point will go ahead and start him on CellCept and we will request those results from [place] to be provided as soon as possible. The patient's 's also going to be calling [place] to get those results. The patient is scheduled to undergo a repeat CT scan in July and therefore can see the response to the mycophenolate therapy. The patient will start the therapy on a lower dose and then will request blood work and a month's time. We did already have preliminary laboratory data which is reassuring for him to start the therapy at this time. He also continues uses CPAP. The CPAP therapy continues to be affecting beneficial. Does try to use it 4 hours a night, but has been short. 07/28/2023 the patient is here for a pulmonary follow-up visit. He continues to work. He has a hard time wearing the mask this is hard for him to breathe. But he understands that he can not be exposed to further inorganic does not through his lungs. Had been on the mycophenolate. But then started developing adverse symptoms. Hard to know if those from the medication. The plan was for him to stop the medication and then to start on a daily basis with 1 tablet. Then will kind of monitoring closely. However, the patient was not able to start the mycophenolate as of yet. Therefore he really has not taken it for too long. Will plan to do a CT scan after treatment with the mycophenolate. For that reason will go ahead and spoke the CT scan for couple months in order for him tolerate the medicine then be able to check the CT scan. If the patient develops any worsening symptoms though he is calm we can try to get the CT scan sooner. In addition to that it appears that [facility] finally received the pathology slides from [facility]. [facility] health department will be looking at the slides and try to further address if there is any inorganic dust that is contributing to the underlying interstitial lung disease. He continues pleuritic pain the site of the surgery. Patient has been responding partially to tramadol as needed. Patient has also been using his CPAP. CPAP therapy continues to be affecting beneficial. He does try to use it 4 hours a night. His AHI is down to 0.3. therefore, will continue with the current CPAP therapy. 10/13/2023 the patient is here for a pulmonary follow-up visit. He continues to be pretty symptomatic. He has been on the mycophenolate. Initially he was started on 5 mg twice a day. However, he was having significant adverse effects from the medication and stopped it. During the last visit back in July we were able to restarted but keep him on a 500 mg dose daily. He did have a repeat CT scan of the chest which I personally reviewed with him and his . It appears that the masslike density in the left upper lobe is the same in the other nodular densities are also the same. Possibly some slight improvement in the left base. Although is not been officially read as of yet. At least is reassuring that does not appear to be getting worse unlike the previous CT scan. I do believe that the dose is too low we have to increase it. Will go ahead increase to 500 mg twice a day for 1 month and then subsequently increase it by 5 mg every month to a maximal g a day. Of which point we can request a repeat CT scan to see if there is any further degree of decreasing this mask. However, the patient continues to have significant adverse effects from the medication is going to be hard for him to function. We did talk about alternatives including other immunomodulator therapy to replace the mycophenolate in view of the adverse effects. However, it would require us to start beginning and also has his own pulmonary toxicities and other adverse effects that around them not encounter. I do hope that as he continues the medication he can develop tolerance. Will go and request blood work to make sure that there was no abnormalities to contraindicate increasing medication. Therefore we continue with the FMLA papers he can take a few days also specially if the drowsiness significant. If it becomes persistent then he may need to looking to potential disability in view of his ongoing chronic progressive disease. The patient appears to have significant limitations due to his ongoing comorbidities. He continues uses CPAP every night CPAP therapy continues to be affecting beneficial. He continues with respiratory therapy as prescribed. He has been very adherent. He still struggling with the postthoracotomy syndrome pain and the pain from the mask and does require pain medications as needed. I did speak to the occupational clinic in [place]. pathology did review the surgical slides. His pathology is really unclear although they definitely did not see any evidence of any severe kyphosis. Although my suspicion is that he does have some underlying worsening of his ongoing disease due to further inorganic dust exposure while at work. I do believe that the exposure is going to continue worsening his respiratory condition. Therefore, this point will go ahead and increase the mycophenolate knowing that he may develop worsening fatigue and it may decrease his functional capacity throughout the day with the hope that we can stop the progression of this masslike density from further irreversible damage in his lung. 12/15/2023 the patient is here for a pulmonary follow-up visit. He has been taking the CellCept 500 mg twice a day. Hopefully we can increase it further to a go 2 g a day. Increase slowly. He is still having daytime drowsiness and chronic fatigue. Has not started the Provigil just yet. He was started now. In addition to that he will undergo blood work prior to the next visit. His last CT scan was back in 09/15/2023. He has a masslike density. Will go ahead and repeat the CT scan of the chest sometime in the end of February after he is on his optimal dose of mycophenolate. In the meantime he is having difficulty walking. He is having difficulty with his shortness of breath and also arthritic 80s. He is requesting a placard. I did provide him paperwork in order for him to get him up stick her in view of her significant chest pain shortness of breath and ongoing comorbidities. Although he needs to continue to exercise. Because was polypharmacy will try to titrate down the Daliresp. Will decrease it down to every other day. If he does not tolerate that he can always increase it to the full dose of it felt like it was working well. 03/10/2024 the patient is here for pulmonary follow-up visit. He continues to take the CellCept. He has been able to increase it to 500 mg 3 times a day. He has a hard time with it because it caused significant fatigue difficult for him to function. He continues with the [facility] papers. We did filament. He did not try the Provigil just yet. The patient will have blood work today to make sure that he is doing well. He is going to have a CT scan next month and will follow-up. But hoping that he can be on 4 tablets of the mycophenolate prior to the CT scan to see the full effect of the medication. If the masslike density has gotten worse then he will need additional testing for it. 04/09/2024 the patient is here for a pulmonary follow-up visit. Overall he is doing okay. Could not tolerate increasing the CellCept too much only 2 500 mg twice a day. Going up to the 2 tablets a day resulted in significant fatigue and GI discomfort. Therefore he stopped it. Will try again going up at this time by half a tablet to see if he can tolerate a little better. In the meantime he did have a CT scan of the chest which we personally reviewed and compared to his last 1. Looks pretty much about the same although maybe some areas show some slight improvement. Therefore explained to him that going up on the dose may be effective in decreasing this area little bit more. He continues to tolerate the Provigil for his daytime drowsiness and continues uses CPAP every night. CPAP therapy has been affecting beneficial in does use it for more than 4 hours a night. The patient also been using respiratory inhalers as prescribed and does require pain medication for the postoperative changes in the masslike density in the lung. 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 07/23/2024 the patient is here for a pulmonary follow-up visit. The patient overall has been doing fair. He has been still complaining of the same similar symptoms shortness of breath chest discomfort fatigue. He is tolerating the medications of this hard for him to tolerate the CellCept because it makes him more fatigued. He has also felt some palpitations. He has been taking some kzjw-mip-ddmaecd stimulants. So I told him that he either has to take the wkco-jpa-soatrbw stimulants or the Provigil but not both. He has had some palpitations already. He continues uses CPAP at night. CPAP therapy continues to be affecting beneficial he does use it for more than 4 hours a night. He did have blood work back in February he did have some slight elevations in the total bili in the alkaline phosphatase so therefore will have blood work done today. He has also had an elevated IgE in the past will recheck those as well. He is continuing to receive the assistance through the [employer] paperwork. For his chronic condition. Will follow-up in 3 months with PFTs. In the meantime will increase his inhaled cortical steroid to Trelegy 200 since he is having some increased diminished breath sounds. He is wearing a mask while working training dim minimize his exposure to the dust in the workplace. 10/18/2024 the patient is here for pulmonary follow-up visit. Overall the patient has been doing okay. He does have his good days and bad days with his breathing. He has been using his inhalers with good effect. He did undergo pulmonary function studies. I did personally review them and also component to his PFTs from 2020. It appears that he has a partial reversible obstruction consistent with asthma. He may have a component of occupational asthma. The patient in the meantime continues to take his mycophenolate for the parenchymal disease. Seems to be tolerating it well. His lung capacity appears to be little better than before which is reassuring. In addition to that he did have blood work including an elevated fasting blood sugar. He is currently not taking any systemic corticosteroids. Although the Trelegy does have a little minimal amount of steroids to consider. Not enough to warrant any changes though. He will work closely with primary care regarding his elevated sugar. Have some lower extremity edema. He does take additional sodium specially and Gatorade. He is going to start cutting down on the sodium. The patient also has been on amlodipine that can cause extremity edema. The patient can try a diuretic for couple days and see if he has any relief. But in the meantime he is going to work on low-sodium diet. He will follow-up sometime in 3-4 months. If you have any issues prior to that he will call for an earlier assessment. 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 Pulmonary nodules Surgical History History of lung surgery History of vasectomy Hx of cholecystectomy History of splenectomy History of knee surgery Family History Mother Embolism Father HTN (hypertension) Partial sight in both eyes Hypercholesteremia Sister Sleep apnea Kidney disease HTN (hypertension) Asthma Arthritis Paternal Grandmother Cancer Social History Housing: House Alcohol intake: never Patient Tobacco Use Status: Former Tobacco user Tobacco use type: Cigarette e-Cigarette/Vaping Use: Never Used Second Hand Smoke Exposure: No service: No Current occupational status: employed Current occupational exposures/hazards: No Cognitive needs: No Hearing needs: No Vision needs: Yes Review of Systems Const Reports difficulty sleeping, Reports fatigue and Reports weight gain Eyes Denies loss of vision ENT Denies dizziness and Denies hearing loss Card Reports chest pain, Denies claudication, Denies leg edema, Denies lightheadedness, Reports palpitations, Reports dyspnea, Reports dyspnea on exertion and Denies orthopnea Resp Denies cough, Denies excessive phlegm production, Reports pain on inspiration, Reports pain with cough, Reports dyspnea, Reports dyspnea on exertion and Denies wheezing GI Denies abdominal pain, Denies hematochezia, Denies change in bowel habits, Denies change in stool character, Denies heartburn, Denies nausea and Denies vomiting Denies dysuria and Denies urinary frequency Musc Denies arthralgias, Denies muscle weakness, Denies numbness and Denies other (Frequent falls) Skin/Breast Denies nail changes and Denies rash Neuro Denies dizziness, Denies loss of vision, Denies memory loss and Denies numbness Psych Denies depression and Denies memory loss Endo Reports fatigue and Reports palpitations Aller/Immun Denies wheezing Physical Exam Vital Signs: Last Vital Signs Pulse 75 10/18/24 15:14 BP 134/76 10/18/24 15:14 Pulse Ox 95 10/18/24 15:14 Oxygen Delivery Method Room Air 10/18/24 15:14 BMI result Body Mass Index 34.5 Const General: alert Neck Neck: Yes normal visual inspection, Yes full ROM and Yes no lymphadenopathy Chest Chest palpation & inspection: tenderness rib Resp Auscultation: diminished lung sounds Cardio Rate: regular rate Rhythm: regular rhythm Heart sounds: S1 normal heart sound present and S2 normal heart sound present GI Palpation (GI): Soft to palpation and nontender Auscultation: normal bowel sounds Skin General skin exam: rashes and/or lesions noted Assessment & Plan Assessment & Plan (1) 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 CT chest without any worsening. But no improvement. Code(s): J64 - Unspecified pneumoconiosis Category: Medical (2) Lung mass: Code(s): R91.8 - Other nonspecific abnormal finding of lung field Category: Medical (3) Dyspnea: Code(s): R06.00 - Dyspnea, unspecified Category: Medical Qualifiers: Dyspnea type: dyspnea on exertion Qualified Code(s): R06.00 - Dyspnea, unspecified (4) Chest pain: Code(s): R07.9 - Chest pain, unspecified Category: Medical Qualifiers: Chest pain type: chest pain on breathing Qualified Code(s): R07.1 - Chest pain on breathing (5) CINTHIA (obstructive sleep apnea): Code(s): G47.33 - Obstructive sleep apnea (adult) (pediatric) Category: Medical (6) Chronic fatigue: Code(s): R53.82 - Chronic fatigue, unspecified Category: Medical (7) Asthma: Comment: Occupational asthma, allergic asthma Code(s): J45.909 - Unspecified asthma, uncomplicated Category: Medical Qualifiers: Asthma severity: moderate Asthma persistence: persistent Asthma complication type: uncomplicated Qualified Code(s): J45.40 - Moderate persistent asthma, uncomplicated Plan Needs to avoid all inorganic dust based on the fact that he already has evidence of interstitial lung disease. continue APAP to treat his severe CINTHIA, mask N20 large with Chin strap continue Daliresp, decrease to every other day Continue Trelegy 200mcg Continue Gabapentin at night Pain management: toradol as needed, lidoderm patch, gabapentin continue Cellcept 500mg BID, will try increasing by 1/2 tab to minimize side effects Modafinil 100mg daily (holding while tried herbal therapies) Low Na diet Lasix x 2-3 days and stop F/U 2-3 months Medications: New furosemide (Lasix) 20 mg PO DAILY 3 tabs 0RF Changed From meloxicam 15 mg PO DAILY To meloxicam 15 mg PO DAILY 30 tabs 0RF 30 days Refilled albuterol sulfate 90 mcg/actuation (ProAir HFA) 2 inhalations inhalation Q6H PRN 1 ea 12RF shortness of breath or wheezing 30 days J44.9 - Chronic obstructive pulmonary disease, unspecified bqnngxrtkko-ltmzqujce-[id number] 200-62.5-25 mcg (Trelegy Ellipta) 1 inh inhalation DAILY 60 ea 12RF 30 days tramadol 50 mg PO DAILY PRN 30 tabs 0RF pain 30 days R91.8 - Other nonspecific abnormal finding of lung field Coding Level of Care Code Est Pt Level 4 (46644) Complex EM visit Add On G2211 Diagnoses Pneumoconiosis J64 Lung mass R91.8 Dyspnea on exertion R06.00 Dyspnea type: dyspnea on exertion Chest pain on breathing R07.1 Chest pain type: chest pain on breathing CINTHIA (obstructive sleep apnea) G47.33 Chronic fatigue R53.82 Moderate persistent asthma without complication J45.40 Asthma severity: moderate Asthma persistence: persistent Asthma complication type: uncomplicated Time Spent (min) 20
[2024-10-18 15:14] VITALS: BP 134/76; PULSE 75; O2SAT 95; BMI 34.5
--- OUTSIDE RECORDS SUMMARY | 2024-10-18 16:35 | XMS_ITS | Clinical Summary ---
Author Organization [employer] [facility] Address [address] [place] [address] Care Team Providers Care Auto Slip Cover Installer Name Role Phone Manuel Coleman MD Primary Care Provider [phone] Allergies No known active allergies Medications Medication [...] 65 05/09/2022 2:27 PM EST Temperature 36.6 C (97.8 F) 05/09/2022 2:27 PM EST Respiratory Rate - - Oxygen Saturation 98% [...] age to complete this topic Care Teams Auto Slip Cover Installer Relationship Specialty Start Date End Date Manuel Coleman MD [address] [place] [id number] PCP - General Hospitalist Medicine 05/09/22
== END 2024-10-18 15:49 | disposition home or self-care (01) ==
LOC: HO.HPS 15:04
PROVIDERS: PCP Physician Assistant; Visit Provider Hospitalist
DX: J64 Unspecified pneumoconiosis (principal); R91.8 Other nonspecific abnormal finding of lung field; R06.00 Dyspnea, unspecified; R07.1 Chest pain on breathing; G47.33 Obstructive sleep apnea (adult) (pediatric); R53.82 Chronic fatigue, unspecified; J45.40 Moderate persistent asthma, uncomplicated
CPT/HCPCS: 99214

== ENCOUNTER 2024-11-16 15:06 | Outpatient (AMB) | payer OTHER, SELFPAY ==
--- NOTE | 2024-11-16 15:09 | A.OFFVIS_ITS ---
Intake Visit Reasons: follow up s/p US 10/12/24 Intake Note: Patient presents for follow up US performed on 10/12/24. Right leg pain more than left. Accompanied by: Self / Same As Patient Allergies No Known Allergies Allergy (Verified 11/16/24 15:11) HPI HPI follow up s/p US 10/12/24: Details: Very pleasant 59-year-old gentleman presents for follow-up regarding venous insufficiency. Biggest complaint is a cluster of spider telangiectasias on the right lateral aspect of his thigh. Other than that no significant difficulties. Denies any significant swelling. Now for routine follow-up. 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 Pulmonary nodules Surgical History History of lung surgery History of vasectomy Hx of cholecystectomy History of splenectomy History of knee surgery Family History Mother Embolism Father HTN (hypertension) Partial sight in both eyes Hypercholesteremia Sister Sleep apnea Kidney disease HTN (hypertension) Asthma Arthritis Paternal Grandmother Cancer Social History Housing: House Alcohol intake: never Patient Tobacco Use Status: Former Tobacco user Tobacco use type: Cigarette e-Cigarette/Vaping Use: Never Used Second Hand Smoke Exposure: No service: No Current occupational status: employed Current occupational exposures/hazards: No Cognitive needs: No Hearing needs: No Vision needs: Yes Review of Systems Const All systems reviewed & are unremarkable except as noted in HPI and below Reports no additional complaints ENT Reports Normal hearing present Card Denies chest pain, Denies chest pain at rest, Denies chest pain with activity and Denies pedal edema Resp Denies cough GI Denies abdominal pain Musc Denies abnormal gait, Denies muscle cramps and Denies radiating pain into limb Skin/Breast Denies skin ulcer and Denies wounds Neuro Reports Normal hearing present and Denies abnormal gait Psych Reports no additional complaints Physical Exam Const General: cooperative, healthy appearing and comfortable Orientation/consciousness: oriented to person, oriented to place and oriented to time HEENT Head: Yes normal to inspection Neck Neck: Yes normal visual inspection Carotids: no bruits Chest Chest palpation & inspection: normal inspection of the chest Resp Effort & Inspection: normal respiratory effort and able to speak in complete sentences Auscultation: clear to auscultation bilaterally, no crackles, no rales, no rhonchi and no wheezes Cardio Rate: regular rate Rhythm: regular rhythm Heart sounds: S1 normal heart sound present and S2 normal heart sound present Bruits: no carotid bruits Peripheral pulses: Peripheral pulses 2+ throughout GI Inspection: Yes normal to inspection Skin Other: Bilateral lateral leg spider telangiectasias Wounds: no wounds Hair: normal Neuro General: oriented to person, oriented to place and oriented to time Cranial nerves: Yes CN's II-XII intact bilaterally and Yes Normal hearing present Cognition (Neuro): normal cognition Motor exam (neuro): 5/5 motor strength present throughout Extrem Other: venous exam: No significant superficial varicosities or spider telangiectasias, minimal edema General: No clubbing, No cyanosis and No edema Psych Appearance: grossly normal Mental Status: mental status grossly normal Speech and movement: Normal speech and movement present Results Reviewed Results Reviewed: Brief summary of venous insufficiency testing is as follows: right great saphenous vein: negative right small saphenous vein: negative right accessory vein: none present left great saphenous vein: negative left small saphenous vein: negative left accessory vein: none present Please note there is no evidence of any venous aneurysms or significant tortuosity Assessment & Plan Assessment & Plan (1) Varicose veins of right lower extremity with inflammation: Code(s): I83.11 - Varicose veins of right lower extremity with inflammation Category: Medical Plan: In short patient is negative for any significant venous insufficiency. At the current time would continue with conservative measures including compression elevation and exercise. If sclerotherapy is required he would need to find a cosmetic venous placed. Unfortunately it is a service that we do not provide. Thank you for allowing us to assist in his care. If there are any questions or concerns please do not hesitate to contact us. Coding Level of Care Code Est Pt Level 4 (90261) Diagnoses Varicose veins of right lower extremity with inflammation I83.11
--- OUTSIDE RECORDS SUMMARY | 2024-11-16 16:10 | XMS_ITS | Encounter Summary ---
Author Organization [facility] Address [address] [place] [address] Care Team Providers Care Waxer Floor Name Role Phone Jaquan Red MD Primary Care Provider Manuel Pruitt Primary Care Provider [phone] Encounter Details Date Type Department Care Team Description 10/25/2019 Sales Superintendent Report Medical Records [address] [place] [address] Mikhail Don MD Social History Tobacco Use [...] on filedocumented in this encounter Care Teams Waxer Floor Relationship Specialty Start Date End Date Jaquan Red MD PCP - General Internal Medicine 08/23/14 09/27/21 Manuel Coleman [address] [place] [id number] PCP - General Internal Medicine 09/28/21 documented as of this encounter
--- OUTSIDE RECORDS SUMMARY | 2024-11-16 16:10 | XMS_ITS | Clinical Summary ---
Author Organization [employer] [facility] Address [address] [place] [address] Care Team Providers Care Oracle Ebs Architect Name Role Phone Manuel Coleman MD Primary Care Provider [phone] Allergies No known active allergies Medications Medication [...] Cancer Screening (Colonoscopy) 10/07/2011 Influenza Vaccine (#1) 2024 , 05/09/2016, 05/09/2016, Additional history exists Pneumococcal Vaccine (3 of 3 - PPSV23 or PCV20) 01/26/2025 01/27/2020, 08/27/2017 DTap / Tdap / Td (2 - Td or Tdap) 05/09/2026 05/09/2016 RSV Ped < 20 months Aged Out No longe r eligible based on patient's age to complete this topic Care Teams Oracle Ebs Architect Relationship Specialty Start Date End Date Manuel Coleman MD [address] [place] [id number] PCP - General Hospitalist Medicine 05/09/22
--- OUTSIDE RECORDS SUMMARY | 2024-11-16 16:10 | XMS_ITS | Clinical Summary ---
Author Organization [facility] Address [address] [place] [address] Phone Care Team Providers Care Cutter Helper Name Role Phone Unknown, Unknown Primary Care Provider Hailey botello Active Problems Problem Noted Date Diagnosed Date Interstitial lung disease 12/19/2022 Social History Tobacco Use Types Packs/Day Years Used Date Smoking Tobacco: Former Cigarettes Tobacco Cessation:Counseling Given: Not Answered Education Answer Date Recorded Are you interested in more education? Not on alfredo e 08/23/2022 Are you concerned about learning? Not on file 08/23/2022 No 08/23/2022 No 08/23/2022 Digital Access Answer Date Recorded No 09/24/2022 No 09/24/2022 Reliable internet access at home? Not on file 09/24/2022 Device with a working camera? Not on file Sex and Gender Information Value Date Recorded Sex Assigned at Male 07/12/2022 2:50 PM EDT Legal Sex Male 2:41 PM EDT Gender Identity Male 07/12/2022 2:44 PM EDT Sexual Orientation Straight 07/12/2022 2: 50 PM EDT Last Filed Vital Signs Vital Sign Reading Time Taken Comments Blood Pressure 177/94 12/19/2022 8:25 AM EDT Pulse 66 12/19/2022 8:25 AM EDT Temperature 36.4 C (97.5 F) 12/19/2022 8:25 AM EDT Respiratory Rate 18 12/19/2022 8:25 AM EDT Oxygen Saturation 97% 12/19/2022 8:25 AM EDT Inhaled Oxygen Concentration - - Weight 93 kg (205 lb) 12/19/2022 8:25 AM EDT Height 165.1 cm (5' 5 ) 12/19/2022 8:25 AM EDT Body Mass Index 34.11 12/19/2022 8:25 AM EDT Plan of Treatment Health Maintenance Due Date Last Done Comments LIPID PANEL 1966 DEPRESSION SCREENING 1978 SMOKING Hx and SMOKELESS TOB ACCO SCREENING 10/07/1979 HEPATITIS C SCREENING 1984 HIV ONE-TIME SCREENING (18-6 5 YEARS) 1984 SCREENING FOR DIABETES 2001 COLOGUARD 10/07/2011 COLONOSCOPY 10/07/2011 COLORECTAL CANCER SCREENING 10/07/2011 FIT TEST 10/07/2011 FOBT 10/07/2011 SIGMOIDOSCOPY 10/07/2011 VIRTUAL COLONOSCOPY 10/07/2011 PNEUMOCOCCAL VACCINES (50+ y ears) (1 of 1 - PCV) 2016 ZOSTER VACCINES (1 of 2) 2016 COVID-19 VACCINE (1 - 2023-2 5 season) 2023 Adult Td,Tdap Booster 05/09/2026 05/09/2016 HEPATITIS A VACCINES Aged Out No long er eligible based on patient's age to complete this topic HIB VACCINES Aged Out No longer eligi ble based on patient's age to complete this topic MENINGOCOCCAL VACCINES (ACWY) Aged Out No longer eligible based on patient's age to complete this topic MENINGOCOCCAL VACCINES (B) Aged Out N o longer eligible based on patient's age to complete this topic Medical Devices Not on file Insurance HEALTH SAFETY NET PARTIAL CIGNA PPO HEALTH SAFETY NET PARTIAL CIGNA PPO HEALTH SAFETY NET PARTIAL CIGNA PPO Member Subscriber Plan / Payer (Ef fective 2016-Present) Name:Yazan Don Relation to Subscriber:Self Name:Yazan Don Payer ID:[id number] (NA) Type:PPO Address: [place] [id number] HEALTH SAFETY NET PARTIAL CIGNA PPO Member Subscriber Plan / Payer (Ef fective 2016-Present) Name:Yazan Don Relation to Subscriber:Self Name:ArianDeannaan Payer ID:[id number] ([facility]) Type:PPO Address: [place] [id number] HEALTH SAFETY NET PARTIAL [place] [address] [place] [address] NET PARTIAL [facility]PO [facility] [place] [address] Care Teams Cutter Helper Relationship Specialty Start Date End Date Unknown, Unknown, PCP - General 07/23/22 Additional Source Comments The information contained in this document represents components of the legal health record. It is not the complete legal health record.[facility]
== END 2024-11-16 15:58 | disposition home or self-care (01) ==
LOC: HO.HVS 15:07
PROVIDERS: PCP Internal Medicine; Visit Provider Surgery Vascular Surgery
DX: I83.11 Varicose veins of right lower extremity with inflammation (principal)
CPT/HCPCS: 99214

== ENCOUNTER 2025-02-09 16:45 | Outpatient (AMB) | payer OTHER, SELFPAY ==
[2025-02-09 16:47] VITALS: BP 142/70; PULSE 72; RESP 18; TEMP 36.2; O2SAT 96; BMI 32.3
--- NOTE | 2025-02-09 16:47 | MHC.PC.OV ---
Vital Signs 02/09/25 16:47 Height 5 ft 5 in Weight 194 lb 6 oz BMI 32.3 BP 142/70 H Blood Pressure Location Lt brachial Position Sitting Respiration 18 Pulse 72 Pulse Source Pulse Oximeter Temp 97.1 F Temp Source Temporal Artery Scan Pulse Oximetry (%) 96 Oxygen Delivery Method Room Air Intake Visit Reasons: annual exam Quarrying Specialist Required: No Accompanied by: Self / Same As Patient Allergies No Known Allergies Allergy (Verified 02/09/25 17:02) Medication List - Last Reconciled 02/09/25 by Regina England MD albuterol sulfate 90 mcg/actuation (ProAir HFA) 2 inhalations inhalation Q6H PRN 30 days amlodipine 5 mg PO DAILY 90 days betamethasone dipropionate 0.05% 1 appl topical DAILY PRN 2 weeks cholecalciferol (vitamin D3) 50 mcg PO DAILY clotrimazole 1% 1 appl topical BID 4 weeks clotrimazole-betamethasone 1-0.05 % 1 appl topical BID 2 weeks fluticasone propionate 50 mcg/actuation 0 mcg intranasal ljxmpkonqon-vlqhhvsvr-zvnabkyf 200-62.5-25 mcg (Trelegy Ellipta) 1 inh inhalation DAILY 30 days furosemide (Lasix) 20 mg PO DAILY gabapentin 600 mg (2 x 300 mg) PO BEDTIME lidocaine 5% (Lidoderm) 1 patch topical DAILY 30 days loratadine 10 mg PO DAILY meloxicam 15 mg PO DAILY 30 days modafinil (Provigil) 100 mg PO DAILY 30 days mycophenolate mofetil 1,000 mg (2 x 500 mg) PO BID 30 days tamsulosin 0.4 mg PO DAILY PRN tramadol 50 mg PO DAILY PRN 30 days Tobacco use date assessed: 02/09/25 Dental Screening Dental Screen Date: 02/09/25 Did you have a dental visit in the last 12 months?: Yes Did you have a dental problem in the last 6 months where you did not have access to dental care?: No Was dental information given to patient?: Patient has dentist HPI HPI Comments History of Present Illness Details The patient is a 59-year-old male presenting for an annual physical examination. He has a history of hypertension managed with amlodipine and furosemide. He also uses an inhaler and Trelegy for a respiratory condition. The patient underwent a colonoscopy in 2022, during which a polyp was removed. He experienced bleeding three days post-procedure, which was noted as a possible complication. He is scheduled for a cystoscopy on March 01. The patient reports hearing loss, which has worsened over the past year. A hearing test is planned, and a referral to an ear, nose, and throat specialist is pending. [facility] Medical History Chronic fatigue Silicosis Chest pain Lung mass Asthma-COPD overlap syndrome Dyspnea Pulmonary nodules Pneumoconiosis Asthma Necrotizing granulomatous inflammation of lung Organizing pneumonia Pulmonary nodules Surgical History History of lung surgery History of vasectomy Hx of cholecystectomy History of splenectomy History of knee surgery Family History Mother Embolism Father HTN (hypertension) Partial sight in both eyes Hypercholesteremia Sister Sleep apnea Kidney disease HTN (hypertension) Asthma Arthritis Paternal Grandmother Cancer Social History Housing: House Alcohol intake: never Patient Tobacco Use Status: Former Tobacco user Tobacco use type: Cigarette e-Cigarette/Vaping Use: Never Used Second Hand Smoke Exposure: No service: No Current occupational status: employed Current occupational exposures/hazards: No Cognitive needs: No Hearing needs: No Vision needs: Yes Questionnaire PHQ-9 Over the last 2 weeks, how often have you been bothered by any of the following problems? 1. Little interest or pleasure in doing things: not at all 2. Feeling down, depressed, or hopeless: not at all 3. Trouble falling or staying asleep, or sleeping too much: not at all 4. Feeling tired or having little energy: several days 5. Poor appetite or overeating: not at all 6. Feeling bad about yourself - or that you are a failure or have let yourself or your family down: not at all 7. Trouble concentrating on things, such as reading the newspaper or watching television: not at all 8. Moving or speaking so slowly that other people could have noticed. Or the opposite - being so fidgety or restless that you have been moving around a lot more than usual: not at all 9. Thoughts that you would be better off or of hurting yourself in some way: not at all Total score: 1 Depression Screening Interpretation: Negative Depression Screening Done: Yes 70538 - PHQ-9 Billing: Yes Source: Developed by Drs. Cuco Grullon, Angie Gonzalez, Mark Davis and colleagues, with an educational agata from [employer]. Thrive Questionnaire Date Thrive assessed: 08/17/24 I am a: Patient What is your living situation today?: I have a steady place to live Within the past 12 months, did the food you bought not last and you didn't have the money to get more?: I choose not to answer this question Within the past 12 months, did you worry whether your food would run out before you got money to buy more?: I choose not to answer this question Do you have trouble paying for medicines?: I choose not to answer this question Do you have trouble getting transportation to medical appointments?: I choose not to answer this question Do you have trouble paying your heating and electricity bill?: I choose not to answer this question Do you have trouble taking care of your child, family member or friend?: I choose not to answer this question Do you have trouble with day-to-day activities such as bathing, preparing meals, shopping, managing finances, etc.?: I choose not to answer this question Are you currently unemployed and looking for a job?: I choose not to answer this question Are you interested in more education?: I choose not to answer this question Please select the resources that you would like help with: None Currently or been in a relationship where the following occur: No concerns reported THRIVE Score: 0 AUDIT C Alcohol Use Questionnaire (AUDIT-C) 1. How often do you have a drink containing alcohol?: Never Total Score: 0 GUILHERME-7 AMB Questionnaire GUILHERME-7 Date GUILHERME - 7 assessed: 08/17/24 Feeling nervous, anxious, or on edge: 1 = Several days Not being able to stop or control worryin = Several days Worrying too much about different things: 1 = Several days Trouble relaxin = Several days Being so restless that it is hard to sit still: 1 = Several days Becoming easily annoyed or irritable: 1 = Several days Feeling afraid as if something awful might happen: 0 = Not at all Total GUILHERME-7 score (0-4 normal; 5-9 mild; 10-14 moderate; 15-21 severe): 6 Source: Developed by Drs. Cuco Grullon, Angie Gonzalez, Mark Davis and colleagues, with an educational agata from [employer]. GUILHERME-7 Assessment Billing GUILHERME-7 Assessment Tool: GUILHERME-7 Assessment 02923 Review of Systems Const All systems reviewed & are unremarkable except as noted in HPI and below Card Denies chest pain at rest, Denies chest pain with activity, Denies edema, Denies irregular heart rhythm, Denies claudication, Denies dyspnea, Denies dyspnea on exertion, Denies orthopnea, Denies paroxysmal nocturnal dyspnea and Denies slow heart rate Resp Denies cough, Denies dyspnea and Denies dyspnea on exertion Physical exam (Primary Care) Vital Signs: Last Vital Signs Temp 97.1 F 02/09/25 16:47 Pulse 72 02/09/25 16:47 Resp 18 02/09/25 16:47 BP 142/70 H 02/09/25 16:47 Pulse Ox 96 02/09/25 16:47 Oxygen Delivery Method Room Air 02/09/25 16:47 BMI result Body Mass Index 32.3 BMI Assessment/Plan discussion: High BMI High, discussed plan: lifestyle, weight reduction, dietary and physical activity Tobacco/Smoking Status: Tobacco use Status Tobacco use date assessed 02/09/25 02/09/25 16:58 Patient Tobacco Use Status Former Tobacco user 02/09/25 16:50 Tobacco use type Cigarette 02/09/25 16:50 e-Cigarette/Vaping Use Never Used 02/09/25 16:50 PHQ-9: PHQ-9 Score PHQ-9: Total score 1 02/09/25 17:18 Depression Screening Interpretation: Negative Thrive Assessment: Date of Thrive Assessment Date Thrive assessed 08/17/24 02/09/25 16:50 Currently or been in a relationship where the following occur: No concerns reported HENMT Head: Yes normal to inspection, Yes normocephalic and Yes atraumatic Ears: external ears normal Eyes General: appearance normal, both eyes and all related structures Eyelids: Yes eyelids normal Conjunctivae: conjunctivae normal Neck Neck: Yes normal visual inspection and Yes supple Resp Effort & Inspection: normal respiratory effort Auscultation: clear to auscultation bilaterally Cardio Jugular venous distension: no JVD Rate: regular rate Rhythm: regular rhythm Heart sounds: S1 normal heart sound present and S2 normal heart sound present GI Inspection: Yes normal to inspection Palpation (GI): Soft to palpation and nontender Auscultation: normal bowel sounds Skin General skin exam: no rashes or lesions noted Neuro General: no focal motor deficits Extrem General: Yes full ROM Psych Appearance: grossly normal Office Procedures Flu Questionnaire Does the patient have a severe egg allergy?: No Does the patient have severe life threatening allergies?: No Does the patient have a fever or illness today?: No Has the patient ever had Guillain-[place] Syndrome?: No Has the patient ever had any past reaction to a flu shot?: No Immunizations Fluarix [id number] (PF) 45 mcg (15 mcg x 3)/0.5 mL IM syringe Performing Provider: Regina England MD [facility] Administered by: Lory Meza CMA on 02/09/25 17:18 Dose Route Admin Location Dispensed Lot Number Expiration Date NDC Research Biostatistician 0.5 mL IM Left Deltoid 0.5 mL [id number] 10/25/25 [id number] [employer] VIS Given Date VIS Provided VIS Publication Date 02/09/25 Single Vaccine 24 Eligibility Eligibility Date Funding Source Not [facility] Eligible 02/09/25 Private Coding Level of Care Code Est Pt Level 3 (44822) Est Pt Prev Care 40-64y(15045) Diagnoses Physical exam Z00.00 Pneumoconiosis J64 Bilateral hearing loss H91.93 Additional Codes GUILHERME-7 Assessment Billing - GUILHERME-7 Assessment Tool: GUILHERME-7 Assessment 73973 ([id number]) PHQ-9 - 13455 - PHQ-9 Billing: Yes ([id number]) Time Spent (min) 34 Assessment & Plan Assessment & Plan (1) Physical exam: Code(s): Z00.00 - Encounter for general adult medical examination without abnormal findings Category: Medical (2) 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 CT chest without any worsening. But no improvement. Code(s): J64 - Unspecified pneumoconiosis Category: Medical (3) Bilateral hearing loss: Code(s): H91.93 - Unspecified hearing loss, bilateral Category: Medical Plan Plan Patient was informed and verbally consented to the use of an ambient scribe for clinic note documentation during this visit. 1. Physical exam The patient underwent a colonoscopy in 2022 with polyp removal and experienced post-procedure bleeding. Next one should be 2027. 2. Hearing Loss The patient reports worsening hearing loss over the past year, with a hearing test planned and a referral to an ENT specialist pending. Orders: Orders Influenza [id number] Immunization Today Z23 - Encounter for immunization Referrals Ear/Nose/Throat Referral H91.93 - Unspecified hearing loss, bilateral Speech and Hearing Referral H91.93 - Unspecified hearing loss, bilateral Medications: Refilled tramadol 50 mg PO DAILY PRN 30 tabs 0RF pain 30 days R91.8 - Other nonspecific abnormal finding of lung field meloxicam 15 mg PO DAILY 30 tabs 0RF 30 days
--- OUTSIDE RECORDS SUMMARY | 2025-02-09 19:30 | XMS_ITS | Clinical Summary ---
Author Organization [facility] Address [address] [place] [address] Care Team Providers Care Manager Budget Name Role Phone Manuel Coleman MD Primary Care Provider [phone] Allergies No known active allergies Medications Medication [...] to complete this topic Care Teams Manager Budget Relationship Specialty Start Date End Date Manuel Coleman MD [address] [place] [id number] PCP - General Hospitalist Medicine 05/09/22
--- OUTSIDE RECORDS SUMMARY | 2025-02-09 19:31 | XMS_ITS | Clinical Summary ---
Author Organization [facility] Address [address] [place] [address] Phone Care Team Providers Care Hearing Screener Name Role Phone Unknown, Unknown Primary Care [...] 2016 ZOSTER VACCINES (1 of 2) 2016 INFLUENZA VACCINE (#1) 2024 COVID-19 VACCINE (1 - 2024-2 6 season) 2024 Adult Td,Tdap Booster 05/09/2026 05/09/2016 RSV VACCINE (1 - 1-dose 75+ series) 2041 HEPATITIS A VACCINES Aged Out No long [...] PARTIAL CIGNA PPO HEALTH SAFETY NET PARTIAL Member Subscriber Plan / Payer (Ef fective 2022-Present) Name:Yazan Don Relation to Subscriber:Self Name:Yazan Don Payer ID:Not on file Group ID:Not on file Type:Medicaid Address: [place] [id number] CIGNA PPO HEALTH SAFETY NET PARTIAL CIGNA PPO HEALTH SAFETY NET PARTIAL CIGNA PPO HEALTH SAFETY NET PARTIAL CIGNA PPO Member Subscriber Plan / Payer (Ef fective 2022-Present) Name:Deanna Donan Relation to Subscriber:Self Name:Yazan Don Payer ID:Not on file Group ID:Not on file Type:Medicaid Address: [address] PPO Care Teams Hearing Screener Relationship Specialty Start Date End Date Unknown, Unknown, PCP - General 07/23/22 Additional Source Comments The information contained in this document represents components of the legal health record. It is not the complete legal health record.[facility]
== END 2025-02-09 17:23 | disposition home or self-care (01) ==
LOC: HO.HMCH 16:46
PROVIDERS: PCP Internal Medicine; Visit Provider Internal Medicine
DX: Z00.00 Encounter for general adult medical examination without abnormal findings (principal); J64 Unspecified pneumoconiosis; H91.93 Unspecified hearing loss, bilateral; Z23 Encounter for immunization

== ENCOUNTER → 2025-02-09 16:45 | Outpatient (BNVA) | payer OTHER, SELFPAY | PROVIDERS: PCP Internal Medicine; Visit Provider Internal Medicine | DX: Z00.00 Encounter for general adult medical examination without abnormal findings (principal); I10 Essential (primary) hypertension; J64 Unspecified pneumoconiosis; H91.93 Unspecified hearing loss, bilateral; R91.8 Other nonspecific abnormal finding of lung field; Z23 Encounter for immunization; Z79.899 Other long term (current) drug therapy | CPT/HCPCS: 90471; 90656; 96127 ==

== ENCOUNTER 2025-02-21 14:59 | Outpatient (AMB) | payer OTHER, SELFPAY ==
[2025-02-21 15:16] VITALS: BP 130/66; PULSE 62; O2SAT 96; BMI 32.8
--- NOTE | 2025-02-21 15:16 | A.OFFVIS_ITS ---
Vital Signs 02/21/25 15:16 Height 5 ft 5 in Weight 197 lb 5.019 oz BMI 32.8 BP 130/66 Blood Pressure Location Lt brachial Position Sitting Pulse 62 Pulse Source Pulse Oximeter Pulse Oximetry (%) 96 Oxygen Delivery Method Room Air Intake Visit Reasons: Asthma Line Runner Required: No Accompanied by: Spouse Allergies No Known Allergies Allergy (Verified 02/21/25 15:19) HPI Comments Details: The patient is a 59-year-old gentleman with a known history of nodular densities. Apparently back in 2017 he had a shoulder injury and he went to get an x-ray. His x-ray was abnormal with the an abnormal finding on the lung field. Therefore he underwent a CT scan of the chest demonstrating a masslike density in the left upper lobe area. He also had other densities. He had a PET scan apparently was positive in had a biopsy at that time. CT guided biopsy demonstrated that he had some inflammation although nondiagnostic. Then everything was left alone until again 2018 when he was not feeling well. He was having some malaise symptoms along with not feeling well. Denied any respiratory symptoms the time. He underwent a repeat imaging study and subsequently repeat biopsy demonstrating now giant cell allergic reaction along with what appears to be a foreign body reaction. The patient all the really was referred to a thoracic surgery where he had a wedge resection. 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 Also to note that hypersensitivity panel was significantly elevated for a lot of mold. His microbiology from the wedge resections are still pending no growth today. No evidence of any acid-fast disease. He is tolerating the Breo inhaler and this appears to be helping. Denies any productive coughing or significant wheezing. He does have a dry cough at times and times he can not be barking nature. He does still get some discomfort to the left side does with the area that he had a surgery in addition to the fact that he does some heavy lifting at work. We did review his CT scan from November 2018 in addition to his CT scan from May 2019. The left upper lobe masslike densities pre similar in anything possibly little larger in size. The other nodular densities phone in the lingula and also in the left lower lobe have appear to be improved. Still has a emphysematous changes the unilateral side. Plan to repeat the CT scan sometime in February and at that time depending on the findings with decide to potentially do a bronchoscopy. We did review all the cultures from [facility] in all were negative for any mycobacterial infections or fungal infections. 05/24/2022 the patient is here for a pulmonary follow-up visit. He did start using the CPAP. The CPAP therapy has been affecting beneficial. He has been tolerating the BiPAP. However, he was not tolerating the mask that he did get from the [employer]. He did better with the mask that he had from the sleep study. Therefore I did request that which was stated N20 large mask. he does need to get a chinstrap to minimize under dryness of the mouth. The pain continues to be initial. 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 He knows to minimize the medication if possible. He also uses Lidoderm patch that to help him really get some relief as well. He has been using his respiratory medications in addition to the Daliresp. he will continue to struggle with his chronic respiratory complaints including the chest discomfort in the shortness of breath that he is slowly working to try to improved although it it is a significant limitation in a quality of life issue for him and his family. 10/07/2022 the patient is here for pulmonary follow-up visit. He has been having hard time lately with increasing shortness of breath. Complains of chest tightness and fatigue. Sometimes hard for him to get to work. At work he does wear a mask when needed. Although he still feels like he is getting exposed to significant amount of in organic dust in his work environment and also in other areas. I do believe the patient has likely more inflammatory changes.. The CT scan of the chest demonstrating interval increase in his airspace disease which is concerning. Will go ahead and treated with some prednisone to see if this helps decrease inflammation and hopefully his symptoms as well. 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 In view of the slight increase in size of his left upper lobe parenchymal process taking view important for additional evaluation. Will even consider re-biopsy of this area. Although, the initial biopsy was and still is painful. The patient also continues uses CPAP every night. CPAP therapy continues to be affecting beneficial. He does use it for more than 4 hours a night. He has been getting supplies readily. Pain control he has been using as needed tramadol and also will try the prednisone to decrease inflammation at this time. 11/07/2022 The patient is here for a pulmonary follow up. The patient feels like it is getting worse. Complains of worsening dyspnea worsening fatigue. Also having worsening left-sided chest discomfort. Based on his last CT scan there was some interval increase in the area of airspace disease. He did take the trial of prednisone but did not see any significant improvement. He does continue with his respiratory therapy and also he has been using the CPAP at nighttime. The CPAP therapy continues to be affecting beneficial. He is scheduled to go to [place] for 2nd opinion the end of November. At this point would be prudent in view of his worsening symptoms to have him stay out of work until that evaluation. 02/07/2023 the patient is here for pulmonary follow-up visit. Overall he is doing about the same. He is back to work. The patient needs to wear respirator. He is concerned about the worsening density in his lung. He was [place] to [place] will be reviewing the pathology in the radiology and getting back to us. Depending on the findings will likely place him on immunomodulator for period time and then reimage closer to a year from his last CT scan which be in July 2023. we did talk about potentially methotrexate or mycophenolate as potential medications. Will have blood work today to assess his blood work prior to starting the medication. The patient continues uses CPAP every night CPAP therapy continues to be affecting beneficial when he does use it for more than 4 hours a night. Also continues with respiratory therapy. 05/09/2023 the patient is here for pulmonary follow-up visit. The patient has been working with respirator and seems to be working well. He is monitoring closely his weight he has had some weight gain that unfortunately is going to affect his respiratory capacity as well. He is looking in to getting involved in a weight loss program. In the meantime we have not heard back from the 2nd opinion on his pathology. Were hoping to get the pathology reading from [facility] in order to start him on immunomodulator therapy. At this point will go ahead and start him on CellCept and we will request those results from [place] to be provided as soon as possible. The patient's 's also going to be calling [place] to get those results. The patient is scheduled to undergo a repeat CT scan in July and therefore can see the response to the mycophenolate therapy. The patient will start the therapy on a lower dose and then will request blood work and a month's time. We did already have preliminary laboratory data which is reassuring for him to start the therapy at this time. He also continues uses CPAP. The CPAP therapy continues to be affecting beneficial. Does try to use it 4 hours a night, but has been short. 07/28/2023 the patient is here for a pulmonary follow-up visit. He continues to work. He has a hard time wearing the mask this is hard for him to breathe. But he understands that he can not be exposed to further inorganic does not through his lungs. Had been on the mycophenolate. But then started developing adverse symptoms. Hard to know if those from the medication. The plan was for him to stop the medication and then to start on a daily basis with 1 tablet. Then will kind of monitoring closely. However, the patient was not able to start the mycophenolate as of yet. Therefore he really has not taken it for too long. Will plan to do a CT scan after treatment with the mycophenolate. For that reason will go ahead and spoke the CT scan for couple months in order for him tolerate the medicine then be able to check the CT scan. If the patient develops any worsening symptoms though he is calm we can try to get the CT scan sooner. In addition to that it appears that [facility] finally received the pathology slides from [facility]. The [facility] [facility] will be looking at the slides and try to further address if there is any inorganic dust that is contributing to the underlying interstitial lung disease. He continues pleuritic pain the site of the surgery. Patient has been responding partially to tramadol as needed. Patient has also been using his CPAP. CPAP therapy continues to be affecting beneficial. He does try to use it 4 hours a night. His AHI is down to 0.3. therefore, will continue with the current CPAP therapy. 10/13/2023 the patient is here for a pulmonary follow-up visit. He continues to be pretty symptomatic. He has been on the mycophenolate. Initially he was started on 5 mg twice a day. However, he was having significant adverse effects from the medication and stopped it. During the last visit back in July we were able to restarted but keep him on a 500 mg dose daily. He did have a repeat CT scan of the chest which I personally reviewed with him and his . It appears that the masslike density in the left upper lobe is the same in the other nodular densities are also the same. Possibly some slight improvement in the left base. Although is not been officially read as of yet. At least is reassuring that does not appear to be getting worse unlike the previous CT scan. I do believe that the dose is too low we have to increase it. Will go ahead in crease to 500 mg twice a day for 1 month and then subsequently increase it by 5 mg every month to a maximal g a day. Of which point we can request a repeat CT scan to see if there is any further degree of decreasing this mask. However, the patient continues to have significant adverse effects from the medication is going to be hard for him to function. We did talk about alternatives including other immunomodulator therapy to replace the mycophenolate in view of the adverse effects. However, it would require us to start beginning and also has his own pulmonary toxicities and other adverse effects that around them not encounter. I do hope that as he continues the medication he can develop tolerance. Will go and request blood work to make sure that there was no abnormalities to contraindicate increasing medication. Therefore we continue with the FMLA papers he can take a few days also specially if the drowsiness significant. If it becomes persistent then he may need to looking to potential disability in view of his ongoing chronic progressive disease. The patient appears to have significant limitations due to his ongoing comorbidities. He continues uses CPAP every night CPAP therapy continues to be affecting beneficial. He continues with respiratory therapy as prescribed. He has been very adherent. He still struggling with the postthoracotomy syndrome pain and the pain from the mask and does require pain medications as needed. I did speak to the occupational clinic in [place]. pathology did review the surgical slides. His pathology is really unclear although they definitely did not see any evidence of any severe kyphosis. Although my suspicion is that he does have some underlying worsening of his ongoing disease due to further inorganic dust exposure while at work. I do believe that the exposure is going to continue worsening his respiratory condition. Therefore, this point will go ahead and increase the mycophenolate knowing that he may develop worsening fatigue and it may decrease his functional capacity throughout the day with the hope that we can stop the progression of this masslike density from further irreversible damage in his lung. 12/15/2023 the patient is here for a pulmonary follow-up visit. He has been taking the CellCept 500 mg twice a day. Hopefully we can increase it further to a go 2 g a day. Increase slowly. He is still having daytime drowsiness and chronic fatigue. Has not started the Provigil just yet. He was started now. In addition to that he will undergo blood work prior to the next visit. His last CT scan was back in 09/15/2023. He has a masslike density. Will go ahead and repeat the CT scan of the chest sometime in the end of February after he is on his optimal dose of mycophenolate. In the meantime he is having difficulty walking. He is having difficulty with his shortness of breath and also arthritic 80s. He is requesting a placard. I did provide him paperwork in order for him to get him up stick her in view of her significant chest pain shortness of breath and ongoing comorbidities. Although he needs to continue to exercise. Because was polypharmacy will try to titrate down the Daliresp. Will decrease it down to every other day. If he does not tolerate that he can always increase it to the full dose of it felt like it was working well. 03/10/2024 the patient is here for pulmonary follow-up visit. He continues to take the CellCept. He has been able to increase it to 500 mg 3 times a day. He has a hard time with it because it caused significant fatigue difficult for him to function. He continues with the [place] papers. We did filament. He did not try the Provigil just yet. The patient will have blood work today to make sure that he is doing well. He is going to have a CT scan next month and will follow-up. But hoping that he can be on 4 tablets of the mycophenolate prior to the CT scan to see the full effect of the medication. If the masslike density has gotten worse then he will need additional testing for it. 04/09/2024 the patient is here for a pulmonary follow-up visit. Overall he is doing okay. Could not tolerate increasing the CellCept too much only 2 500 mg twice a day. Going up to the 2 tablets a day resulted in significant fatigue and GI discomfort. Therefore he stopped it. Will try again going up at this time by half a tablet to see if he can tolerate a little better. In the meantime he did have a CT scan of the chest which we personally reviewed and compared to his last 1. Looks pretty much about the same although maybe some areas show some slight improvement. Therefore explained to him that going up on the dose may be effective in decreasing this area little bit more. He continues to tolerate the Provigil for his daytime drowsiness and continues uses CPAP every night. CPAP therapy has been affecting beneficial in does use it for more than 4 hours a night. The patient also been using respiratory inhalers as presc ribed and does require pain medication for the postoperative changes in the masslike density in the lung. 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 07/23/2024 the patient is here for a pulmonary follow-up visit. The patient overall has been doing fair. He has been still complaining of the same similar symptoms shortness of breath chest discomfort fatigue. He is tolerating the medications of this hard for him to tolerate the CellCept because it makes him more fatigued. He has also felt some palpitations. He has been taking some ove e-qsz-wvmisqe stimulants. So I told him that he either has to take the rqaf-oqs-oifkafa stimulants or the Provigil but not both. He has had some palpitations already. He continues uses CPAP at night. CPAP therapy continues to be affecting beneficial he does use it for more than 4 hours a night. He did have blood work back in February he did have some slight elevations in the total bili in the alkaline phosphatase so therefore will have blood work done today. He has also had an elevated IgE in the past will recheck those as well. He is continuing to receive the assistance through the [facility] paperwork. For his chronic condition. Will follow-up in 3 months with PFTs. In the meantime will increase his inhaled cortical steroid to Trelegy 200 since he is having some increased diminished breath sounds. He is wearing a mask while working training dim minimize his exposure to the dust in the workplace. 10/18/2024 the patient is here for pulmonary follow-up visit. Overall the patient has been doing okay. He does have his good days and bad days with his breathing. He has been using his inhalers with good effect. He did undergo pulmonary function studies. I did personally review them and also component to his PFTs from 2020. It appears that he has a partial reversible obstruction consistent with asthma. He may have a component of occupational asthma. The patient in the meantime continues to take his mycophenolate for the parenchymal disease. Seems to be tolerating it well. His lung capacity appears to be little better than before which is reassuring. In addition to that he did have blood work including an elevated fasting blood sugar. He is currently not taking any systemic corticosteroids. Although the Trelegy does have a little minimal amount of steroids to consider. Not enough to warrant any changes though. He will work closely with primary care regarding his elevated sugar. Have some lower extremity edema. He does take additional sodium specially and Gatorade. He is going to start cutting down on the sodium. The patient also has been on amlodipine that can cause extremity edema. The patient can try a diuretic for couple days and see if he has any relief. But in the meantime he is going to work on low-sodium diet. He will follow-up sometime in 3-4 months. If you have any issues prior to that he will call for an earlier assessment. 02/21/2025 the patient is here for a pulmonary follow-up visit. He is still continues to have similar complaints. Hard time doing his job especially being exposed to significant inorganic dose. Even using a mask he is still being exposed significant dust. He does have worsening respiratory symptoms while working sometimes he needs to take a day off because of the exposures worsen his respiratory capacity. He continues to take the mycophenolate although hard for him to take a full dose because it does cause significant fatigue and adverse effects. Although the last CT scan that he had back in February 2024 demonstrates some slight improvement in the parenchymal masslike density therefore it something that we want to continue if he can not tolerate it. We did try to increase the dose but he could not tolerate it. Will plan to repeat the CAT scan February of 2025 to address the nodular masslike density. The patient also has been having issues with his system. Having some urinary frequency and some hematuria. He is going to undergo a cystoscopy soon. I do not believe that those findings are related to the underlying pulmonary process. The patient also has been using the CPAP. CPAP therapy has been affecting beneficial he does use it for more than 4 hours a night. He has been working on weight loss. Already lost 12 lb which is reassuring. He will continue do so. He will follow-up after the CAT scan sometime in March if he has any issues prior to that he will call for an earlier assessment. 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 Pulmonary nodules Surgical History History of lung surgery History of vasectomy Hx of cholecystectomy History of splenectomy History of knee surgery Family History Mother Embolism Father HTN (hypertension) Partial sight in both eyes Hypercholesteremia Sister Sleep apnea Kidney disease HTN (hypertension) Asthma Arthritis Paternal Grandmother Cancer Social History Housing: House Alcohol intake: never Patient Tobacco Use Status: Former Tobacco user Tobacco use type: Cigarette e-Cigarette/Vaping Use: Never Used Second Hand Smoke Exposure: No service: No Current occupational status: employed Current occupational exposures/hazards: No Cognitive needs: No Hearing needs: No Vision needs: Yes Review of Systems Const Reports difficulty sleeping, Reports fatigue and Reports weight loss Eyes Denies loss of vision ENT Denies dizziness and Denies hearing loss Card Reports chest pain, Denies claudication, Denies leg edema, Denies lightheadedness, Reports palpitations, Reports dyspnea, Reports dyspnea on exertion and Denies orthopnea Resp Denies cough, Denies excessive phlegm production, Reports pain on inspiration, Reports pain with cough, Reports dyspnea, Reports dyspnea on exertion and Denies wheezing GI Denies abdominal pain, Denies hematochezia, Denies change in bowel habits, Denies change in stool character, Denies heartburn, Denies nausea and Denies vomiting Denies dysuria and Reports urinary frequency Musc Denies arthralgias, Denies muscle weakness, Denies numbness and Denies other (Frequent falls) Skin/Breast Denies nail changes and Denies rash Neuro Denies dizziness, Denies loss of vision, Denies memory loss and Denies numbness Psych Denies depression and Denies memory loss Endo Reports fatigue and Reports palpitations Aller/Immun Denies wheezing Physical Exam Vital Signs: Last Vital Signs Pulse 62 02/21/25 15:16 BP 130/66 02/21/25 15:16 Pulse Ox 96 02/21/25 15:16 Oxygen Delivery Method Room Air 02/21/25 15:16 BMI result Body Mass Index 32.8 Const General: alert Neck Neck: Yes normal visual inspection, Yes full ROM and Yes no lymphadenopathy Chest Chest palpation & inspection: tenderness rib Resp Auscultation: diminished lung sounds Cardio Rate: regular rate Rhythm: regular rhythm Heart sounds: S1 normal heart sound present and S2 normal heart sound present GI Palpation (GI): Soft to palpation and nontender Auscultation: normal bowel sounds Skin General skin exam: rashes and/or lesions noted Assessment & Plan Assessment & Plan (1) 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 CT chest without any worsening. But no improvement. Code(s): J64 - Unspecified pneumoconiosis Category: Medical (2) Lung mass: Code(s): R91.8 - Other nonspecific abnormal finding of lung field Category: Medical (3) Dyspnea: Code(s): R06.00 - Dyspnea, unspecified Category: Medical Qualifiers: Dyspnea type: dyspnea on exertion Qualified Code(s): R06.00 - Dyspnea, unspecified (4) Chest pain: Code(s): R07.9 - Chest pain, unspecified Category: Medical Qualifiers: Chest pain type: chest pain on breathing Qualified Code(s): R07.1 - Chest pain on breathing (5) CINTHIA (obstructive sleep apnea): Code(s): G47.33 - Obstructive sleep apnea (adult) (pediatric) Category: Medical (6) Chronic fatigue: Code(s): R53.82 - Chronic fatigue, unspecified Category: Medical (7) Asthma: Comment: Occupational asthma, allergic asthma Code(s): J45.909 - Unspecified asthma, uncomplicated Category: Medical Qualifiers: Asthma complication type: uncomplicated Asthma persistence: persistent Asthma severity: moderate Qualified Code(s): J45.40 - Moderate persistent asthma, uncomplicated Plan Needs to avoid all inorganic dust based on the fact that he already has evidence of interstitial lung disease. continue APAP to treat his severe CINTHIA, mask N20 large with Chin strap continue Daliresp, decrease to every other day Continue Trelegy 200mcg Continue Gabapentin at night Pain management: toradol as needed, lidoderm patch, gabapentin continue Cellcept 500mg BID, will try increasing by 1/2 tab to minimize side effects Modafinil 100mg daily Low Na diet CT chest 02/2025 F/U 2-3 months Orders: Orders 2 CT chest wo IV con 03/21/25 R91.8 - Other nonspecific abnormal finding of lung field Medications: Refilled lidocaine 5% (Lidoderm) leave on most painful area for up to 12 hrs 1 patch topical DAILY 30 ea 11RF 30 days G89.12 - Acute post-thoracotomy pain Coding Level of Care Code New Pt Level 5 (78792) Complex EM visit Add On G2211 Diagnoses Pneumoconiosis J64 Lung mass R91.8 Dyspnea on exertion R06.00 Dyspnea type: dyspnea on exertion Chest pain on breathing R07.1 Chest pain type: chest pain on breathing CINTHIA (obstructive sleep apnea) G47.33 Chronic fatigue R53.82 Moderate persistent asthma without complication J45.40 Asthma complication type: uncomplicated Asthma persistence: persistent Asthma severity: moderate Time Spent (min) 55
--- OUTSIDE RECORDS SUMMARY | 2025-02-21 18:25 | XMS_ITS | Clinical Summary ---
Author Organization [facility] Address [address] [place] [phone] Phone Care Team Providers Care Health Record Technician Name Role Phone Unknown, Unknown Primary Care [...] file Group ID:Not on file Type:Medicaid Address: [place] [id number] [employer] PPO HEALTH SAFETY NET PARTIAL [employer] PPO HEALTH SAFETY NET PARTIAL [employer] PPO HEALTH SAFETY NET PARTIAL [employer]IG[employer] PPO Member Subscriber Plan / Payer (Ef fective 2022-Present) Name:Deanna Donan Relation to Subscriber:Self Name:Yazan Don Payer ID:Not on file Group ID:Not on file Type:Medicaid Address: [address] PPO Care Teams Health Record Technician Relationship Specialty Start Date End Date Unknown, Unknown, PCP - General 07/23/22 Additional Source Comments The information contained in this document represents components of the legal health record. It is not the complete legal health record.[facility]
--- OUTSIDE RECORDS SUMMARY | 2025-02-21 18:25 | XMS_ITS | Clinical Summary ---
Author Organization [facility] Address [address] [place] [address] Care Team Providers Care Hr Analyst Name Role Phone Manuel Coleman MD Primary Care Provider [phone] Allergies No known active allergies Medications Medication [...] age to complete this topic Care Teams Hr Analyst Relationship Specialty Start Date End Date Manuel Coleman MD [address] [place] [id number] PCP - General Hospitalist Medicine 05/09/22
== END 2025-02-21 16:04 | disposition home or self-care (01) ==
LOC: HO.HPS 15:00
PROVIDERS: PCP Physician Assistant; Visit Provider Hospitalist
DX: J64 Unspecified pneumoconiosis (principal); R91.8 Other nonspecific abnormal finding of lung field; R06.00 Dyspnea, unspecified; R07.1 Chest pain on breathing; G47.33 Obstructive sleep apnea (adult) (pediatric); R53.82 Chronic fatigue, unspecified; J45.40 Moderate persistent asthma, uncomplicated
CPT/HCPCS: 99215

== ENCOUNTER 2025-04-20 13:05 | Outpatient (REF) | payer OTHER, SELFPAY ==
--- NOTE | ~2025-04-20 | XR_ITS ---
EXAMINATION: XR CHEST 2 VIEWS HISTORY: R05.9 - Cough, unspecified COMPARISON: Comparison is made with the prior examination dated 06/16/2020. FINDINGS: PA and lateral views of the chest are submitted. A left apical masslike opacity is unchanged in appearance and was previously evaluated with chest CT. There is scarring on the left. The right lung is clear. There is no pleural effusion, pneumothorax, or pulmonary vascular congestion. The heart is normal in size. The bones are intact. XR/XR chest 2V IMPRESSION: No acute cardiopulmonary abnormality. Electronically signed by: Cuco Olson MD 04/20/2025 02:01 PM [facility]
[2025-04-20 17:02] LABS: Resp Syncy Virus RNA Qual PCR NEGATIVE (Negative); SARS COV2 PCR INHOUSE NEGATIVE (Negative)
== END 2025-04-20 13:06 | disposition home or self-care (01) ==
LOC: HO.XRAY 13:05
PROVIDERS: PCP Physician Assistant; Visit Provider Internal Medicine
DX: R09.89 Other specified symptoms and signs involving the circulatory and respiratory systems (principal); R05.9 Cough, unspecified
CPT/HCPCS: 71046; 87637; 87880

== ENCOUNTER 2025-04-20 13:05 | Outpatient (AMB) | payer OTHER, SELFPAY ==
--- NOTE | 2025-04-20 13:08 | A.OFFPC_ITS ---
Vital Signs 04/20/25 13:09 Height 5 ft 5 in Weight 196 lb BMI 32.6 BP 164/54 H Blood Pressure Location Rt brachial Position Sitting Pulse 114 H Pulse Source Pulse Oximeter Temp 101.7 F H Temp Source Temporal Artery Scan Pulse Oximetry (%) 97 Oxygen Delivery Method Room Air Intake Visit Reasons: Strong Cough Labor Contract Analyst Required: No Accompanied by: Self / Same As Patient Allergies No Known Allergies Allergy (Verified 04/20/25 13:08) Medication List - Last Reconciled 04/20/25 by Amber Allen MD albuterol sulfate 90 mcg/actuation (ProAir HFA) 2 inhalations inhalation Q6H PRN 30 days amlodipine 5 mg PO DAILY 90 days betamethasone dipropionate 0.05% 1 appl topical DAILY PRN 2 weeks cholecalciferol (vitamin D3) 50 mcg PO DAILY clotrimazole 1% 1 appl topical BID 4 weeks clotrimazole-betamethasone 1-0.05 % 1 appl topical BID 2 weeks fluticasone propionate 50 mcg/actuation 0 mcg intranasal yclingfegrh-weqjtectj-jqsayeqf 200-62.5-25 mcg (Trelegy Ellipta) 1 inh inhalation DAILY 30 days furosemide (Lasix) 20 mg PO DAILY gabapentin 600 mg (2 x 300 mg) PO BEDTIME lidocaine 5% (Lidoderm) 1 patch topical DAILY 30 days loratadine 10 mg PO DAILY meloxicam 15 mg PO DAILY 30 days modafinil (Provigil) 100 mg PO DAILY 30 days mycophenolate mofetil 1,000 mg (2 x 500 mg) PO BID 30 days oxybutynin chloride ER 5 mg PO DAILY tamsulosin 0.4 mg PO DAILY PRN tramadol 50 mg PO DAILY PRN 30 days Tobacco use date assessed: 02/09/25 Dental Screening Dental Screen Date: 02/09/25 HPI HPI Comments History of Present Illness Details The patient is a 59-year-old male with PMH of pneumoconiosis, lung mnass s/p Left lobectomy, asthma, and necrotizing granulomatous inflammation of the lung presenting with an acute onset of cough, fever, and back pain. His symptoms began yesterday with a slight cough, for which he took NyQuil. This morning, he developed a fever, which reached a maximum of 101.7 ?F, accompanied by back pain and joint pain. He describes the cough as dry and non-productive, which causes his throat to feel dry. The patient has a significant past medical history, including a prior lung surgery for nodules, which has left him with one and a half lungs. 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 The paitent is on Mycophenolate mofetil for these conditions. His current medications include amlodipine, vitamin D, clotrimazole, Lasix, gabapentin, modafinil, and mycophenolate. He also takes meloxicam and uses tramadol as needed for pain. [facility] Medical History Chronic fatigue Silicosis Chest pain Lung mass Asthma-COPD overlap syndrome Dyspnea Pulmonary nodules Pneumoconiosis Asthma Necrotizing granulomatous inflammation of lung Organizing pneumonia Pulmonary nodules Surgical History History of lung surgery History of vasectomy Hx of cholecystectomy History of splenectomy History of knee surgery Family History Mother Embolism Father HTN (hypertension) Partial sight in both eyes Hypercholesteremia Sister Sleep apnea Kidney disease HTN (hypertension) Asthma Arthritis Paternal Grandmother Cancer Social History Housing: House Alcohol intake: never Patient Tobacco Use Status: Former Tobacco user Tobacco use type: Cigarette e-Cigarette/Vaping Use: Never Used Second Hand Smoke Exposure: No service: No Current occupational status: employed Current occupational exposures/hazards: No Cognitive needs: No Hearing needs: No Vision needs: Yes Questionnaire Thrive Questionnaire Date Thrive assessed: 02/09/25 I am a: Patient What is your living situation today?: I have a steady place to live Within the past 12 months, did the food you bought not last and you didn't have the money to get more?: I choose not to answer this question Within the past 12 months, did you worry whether your food would run out before you got money to buy more?: I choose not to answer this question Do you have trouble paying for medicines?: I choose not to answer this question Do you have trouble getting transportation to medical appointments?: I choose not to answer this question Do you have trouble paying your heating and electricity bill?: I choose not to answer this question Do you have trouble taking care of your child, family member or friend?: I choose not to answer this question Do you have trouble with day-to-day activities such as bathing, preparing meals, shopping, managing finances, etc.?: I choose not to answer this question Are you currently unemployed and looking for a job?: I choose not to answer this question Are you interested in more education?: I choose not to answer this question Currently or been in a relationship where the following occur: No concerns reported THRIVE Score: 0 GUILHERME-7 AMB Questionnaire GUILHERME-7 Date GUILHERME - 7 assessed: 08/17/24 Source: Developed by Drs. Cuco Grullon, Angie Gonzalez, Mark Davis and colleagues, with an educational agata from [employer]. Review of Systems Const Details: As per HPI. Physical exam (Primary Care) Vital Signs: Last Vital Signs Temp 101.7 F H 04/20/25 13:09 Pulse 114 H 04/20/25 13:09 BP 164/54 H 04/20/25 13:09 Pulse Ox 97 04/20/25 13:09 Oxygen Delivery Method Room Air 04/20/25 13:09 BMI result Body Mass Index 32.6 Tobacco/Smoking Status: Tobacco use Status Tobacco use date assessed 02/09/25 04/20/25 13:16 Patient Tobacco Use Status Former Tobacco user 04/20/25 13:16 Tobacco use type Cigarette 04/20/25 13:16 e-Cigarette/Vaping Use Never Used 04/20/25 13:16 Thrive Assessment: Date of Thrive Assessment Date Thrive assessed 02/09/25 04/20/25 13:16 Currently or been in a relationship where the following occur: No concerns reported Const Other: Pertinent findings are in BOLD GENERAL APPEARANCE NAD, activity normal for age, well developed/ well nourished, no cyanosis, pallor, or diaphoresis. EYES lids/conjunctiva normal. EARS/NOSE/THROAT Mucous membranes moist, nares normal, lips/teeth normal uvula midline without oral pharyngeal erythema, exudate or swelling TMs normal bilaterally. No lymphangitis/lymphedema. HEAD/NECK normocephalic atraumatic, no facial trauma, neck is supple. Mildly erythematous tonsils. RESPIRATORY respiratory effort normal, speaks in full sentences, no tripod position, no accessory muscle use. Lungs clear to auscultation without rhonchi, wheezes, rales CARDIAC Regular rate and rhythm, no edema. ABDOMINAL Soft, ND/NT. No evidence of fluid wave. No pulsatile masses on exam, rebound tenderness, Calderon sign or pain over Mcburney's point. MUSCLES/EXTREMITIES No abnormal range of motion, no swelling. SKIN Warm, pink and dry. No rashes, dermatoses, petechiae or lesions. NEUROLOGICAL Speech is clear and appropriate. Normal level of consciousness. Gait and coordination are normal. 5/5 strength in all extremities. PSYCH Normal mood and affect. Judgement/competence is appropriate Results AMB Rapid Strep AMB Rapid Strep Negative Last Edit by THOR Shen on 04/20/25 13:4 2 Coding Level of Care Code Est Pt Level 3 (98706) Diagnoses Acute febrile illness R50.9 Assessment & Plan Assessment & Plan (1) Acute febrile illness: Code(s): R50.9 - Fever, unspecified Category: Medical Plan: - The patient is a 59-year-old immunocompromised male with a history of partial lung resection presenting with acute onset of fever, dry cough, and myalgias. - The differential diagnosis includes influenza, COVID-19, RSV, or a bacterial superinfection. - A nasal swab for COVID-19, influenza, and RSV will be performed. - A throat swab for streptococcus will also be obtained due to his immun ocompromised status. Negative. - A chest X-ray will be ordered to rule out pneumonia. Negative. - Augmentin 875 mg/125 mg will be prescribed, one tablet twice daily for 7 days, to provide empiric antibiotic coverage due to his high-risk status, regardless of the swab results. - The patient was advised to continue using tpvg-dpr-jwcqwqg medications like NyQuil for symptomatic relief. - He will follow up in 10 days to monitor his condition. Plan I discussed with the patient and his that while I suspect his symptoms may be due to the flu, we will conduct nasopharyngeal swabs for COVID-19, influenza, and RSV, as well as a throat swab for strep which came rain negative, to be thorough. I explained that due to his significant medical history, including being immunodeficient, being on mycophenolate, and having a partially resected lung, it is prudent to start antibiotics immediately to cover for a potential bacterial infection. Therefore, I am prescribing a 7-day course of Augmentin, which he should take even if the viral test results are positive. I informed them that I am also ordering a chest x-ray to assess for pneumonia. Which came back negative. I recommended he continue using dbgf-vtt-rukmohl medications like NyQuil for symptom management and scheduled a follow-up in 10 days to monitor his progress. Orders: Orders XR chest 2V Today R05.9 - Cough, unspecified AMB Rapid Strep Screen Today Z13.9 - Encounter for screening, unspecified SARS-CoV2/FLU/RSV Today R09.89 - Other specified symptoms and signs involving the circulatory and respiratory systems Medications: New amoxicillin-pot clavulanate 875-125 mg 1 tab PO BID 14 tabs 0RF Refilled meloxicam 15 mg PO DAILY 30 tabs 0RF 30 days
[2025-04-20 13:09] VITALS: BP 164/54; PULSE 114; TEMP 38.7; O2SAT 97; BMI 32.6
--- OUTSIDE RECORDS SUMMARY | 2025-04-20 13:09 | XMS_ITS | Clinical Summary ---
Author Organization [facility] Prior to 09/25/24 Address [address] [place] [address] Care Team Providers Care Logistic Specialist Name Role Phone Manuel Coleman MD Primary Care Provider [phone] Allergies No known active allergies Medications Medication [...] Screening (Colonoscopy) 10/07/2011 Influenza Vaccine (#1) 2024 0, 05/09/2016, 05/09/2016, Additional history exists Pneumococcal Vaccine (3 of 3 - PPSV23 or PCV20) 01/26/2025 01/27/2020, 08/27/2017 DTap / Tdap / Td (2 - Td or Tdap) 05/09/2026 05/09/2016 RSV Ped < 20 months Aged Out No longe r eligible based on patient's age to complete this topic Care Teams Logistic Specialist Relationship Specialty Start Date End Date Manuel Coleman MD [address] [place] [phone] PCP - General Hospitalist Medicine 05/09/22
--- OUTSIDE RECORDS SUMMARY | 2025-04-20 13:09 | XMS_ITS | Clinical Summary ---
Author Organization [facility] Address [address] [place] [phone] Phone Care Team Providers Care Char Filter Operator Helper Name Role Phone Unknown, Unknown Primary [...] file Group ID:Not on file Type:Medicaid Address: [place] [id number] [employer] PPO HEALTH SAFETY NET PARTIAL [employer] PPO HEALTH SAFETY NET PARTIAL [employer] PPO HEALTH SAFETY NET PARTIAL [employer] PPO Member Subscriber Plan / Payer (Ef fective 2022-Present) Name:Deanna Donan Relation to Subscriber:Self Name:Yazan Don Payer ID:Not on file Group ID:Not on file Type:Medicaid Address: [address] PPO Care Teams Char Filter Operator Helper Relationship Specialty Start Date End Date Unknown, Unknown, PCP - General 07/23/22 Additional Source Comments The information contained in this document represents components of the legal health record. It is not the complete legal health record.[facility]
== END 2025-04-20 13:36 | disposition home or self-care (01) ==
LOC: HO.HMCH 13:06
PROVIDERS: PCP Physician Assistant; Visit Provider Internal Medicine
DX: Z13.9 Encounter for screening, unspecified (principal); R50.9 Fever, unspecified

== ENCOUNTER → 2025-04-20 13:46 | Outpatient (BNV) | payer OTHER, SELFPAY | PROVIDERS: PCP Physician Assistant; Visit Provider Radiology Diagnostic Radiology | DX: R05.9 Cough, unspecified (principal) | CPT/HCPCS: 71046 ==

== ENCOUNTER 2025-04-27 10:26 | Outpatient (AMB) | payer OTHER, SELFPAY ==
--- NOTE | 2025-04-27 10:28 | MHC.OFFVIS ---
Vital Signs 04/27/25 10:31 Height 5 ft 5 in Weight 194 lb 0.108 oz BMI 32.3 BP 132/70 Blood Pressure Location Rt brachial Position Sitting Pulse 75 Pulse Source Pulse Oximeter Pulse Oximetry (%) 96 Oxygen Delivery Method Room Air Intake Visit Reasons: Adrenal gland disorder Intake Note: Patient present today for Adrenal Gland Disorder. Oncology Coordinator Required: No Accompanied by: Spouse Allergies No Known Allergies Allergy (Verified 04/27/25 10:32) Medication List - Last Reconciled 04/27/25 by Cuco Gtz MD albuterol sulfate 90 mcg/actuation (ProAir HFA) 2 inhalations inhalation Q6H PRN 30 days amlodipine 5 mg PO DAILY 90 days amoxicillin-pot clavulanate 875-125 mg 1 tab PO BID betamethasone dipropionate 0.05% 1 appl topical DAILY PRN 2 weeks cholecalciferol (vitamin D3) 50 mcg PO DAILY clotrimazole 1% 1 appl topical BID 4 weeks clotrimazole-betamethasone 1-0.05 % 1 appl topical BID 2 weeks fluticasone propionate 50 mcg/actuation 0 mcg intranasal njkzalaqokv-xssunjhvk-hrbmgorn 200-62.5-25 mcg (Trelegy Ellipta) 1 inh inhalation DAILY 30 days furosemide (Lasix) 20 mg PO DAILY gabapentin 600 mg (2 x 300 mg) PO BEDTIME lidocaine 5% (Lidoderm) 1 patch topical DAILY 30 days loratadine 10 mg PO DAILY meloxicam 15 mg PO DAILY 30 days modafinil (Provigil) 100 mg PO DAILY 30 days mycophenolate mofetil 1,000 mg (2 x 500 mg) PO BID 30 days oxybutynin chloride ER 5 mg PO DAILY tamsulosin 0.4 mg PO DAILY PRN tramadol 50 mg PO DAILY PRN 30 days HPI Comments Details: The patient is a 59-year-old male presenting with an incidental adrenal lesion seen on a CT scan. The lesion was not symptomatic at the time of discovery. The patient does not report any frequent episodes of sweating, palpitations, or headaches beyond an isolated incident four years ago. He denies symptoms such as abdominal pain, diarrhea, weight change, and unusual skin markings. The patient's medical history includes hypertension, for which he is on Amlodipine. He admits to easy bruising but not as a result of anticoagulation therapy. - Amlodipine for Hypertension - Cardiovascular: Denies episodes of significant sweating, palpitations, aside from one past episode four years ago. - Gastrointestinal: Denies abdominal pain and diarrhea. - Dermatologic: Denies purplish stretch craft; admits easy bruising. - General: Denies significant weight gain or weight loss. Had CT chest 03/17/2024 for which revealed 1 cm low density nodule left adrenal gland which measures -6 Hounsfield units. Denies history of spells with headache, flushing, diaphoresis, abdominal pain or diarrhea. Some weight gain, frequent infections, +easy bruisability, -development of violaceous striae. History of HTN, controlled on 1 agents. No history of anticoagulant use. Denies any weight loss, orthostatic symptoms, hypoglycemia. No history of malignancy or TB. Imaging: Labs: Workup for hypersecretion including pheochromocytoma and Ghent's and primary hyperaldosteronism with negative [facility] Medical History Chronic fatigue Silicosis Chest pain Lung mass Asthma-COPD overlap syndrome Dyspnea Pulmonary nodules Pneumoconiosis Asthma Necrotizing granulomatous inflammation of lung Organizing pneumonia Pulmonary nodules Surgical History History of lung surgery History of vasectomy Hx of cholecystectomy History of splenectomy History of knee surgery Family History Mother Embolism Father HTN (hypertension) Partial sight in both eyes Hypercholesteremia Sister Sleep apnea Kidney disease HTN (hypertension) Asthma Arthritis Paternal Grandmother Cancer Social History Housing: House Alcohol intake: never Patient Tobacco Use Status: Former Tobacco user Tobacco use type: Cigarette e-Cigarette/Vaping Use: Never Used Second Hand Smoke Exposure: No service: No Current occupational status: employed Current occupational exposures/hazards: No Cognitive needs: No Hearing needs: No Vision needs: Yes Physical Exam Vital Signs: Last Vital Signs Pulse 75 04/27/25 10:31 BP 132/70 04/27/25 10:31 Pulse Ox 96 04/27/25 10:31 Oxygen Delivery Method Room Air 04/27/25 10:31 BMI result Body Mass Index 32.3 Assessment & Plan Assessment & Plan (1) Adrenal adenoma: Code(s): D35.00 - Benign neoplasm of unspecified adrenal gland Category: Medical Plan: 58-year-old male with a history of an incidentally discovered left adrenal adenoma which appears to have benign characteristics on CAT scan with low density. Workup for hypersecretion was negative Plan is for continued observation. Patient returned for follow up visit 1 year's time Coding Level of Care Code Est Pt Level 3 (89514) Diagnoses Adrenal adenoma D35.00
[2025-04-27 10:31] VITALS: BP 132/70; PULSE 75; O2SAT 96; BMI 32.3
--- OUTSIDE RECORDS SUMMARY | 2025-04-27 11:40 | XMS_ITS | Clinical Summary ---
Author Organization [facility] Prior to 09/25/24 Address [address] [place] [address] Care Team Providers Care Quill Cleaner Name Role Phone Manuel Coleman MD Primary Care Provider [phone] Allergies No known active allergies Medications Medication [...] age to complete this topic Care Teams Quill Cleaner Relationship Specialty Start Date End Date Manuel Coleman MD [address] [place] [phone] PCP - General Hospitalist Medicine 05/09/22
--- OUTSIDE RECORDS SUMMARY | 2025-04-27 11:40 | XMS_ITS | Clinical Summary ---
Author Organization [facility] Address [address] [place] [phone] Phone Care Team Providers Care Corporate Safety Coordinator Name Role Phone Unknown, Unknown Primary Care [...] file Group ID:Not on file Type:Medicaid Address: [place] [id number] [employer] P[employer] HEALTH SAFETY NET PARTIAL [employer] PPO HEALTH SAFETY NET PARTIAL [employer] PPO HEALTH SAFETY NET PARTIAL [employer] PPO Member Subscriber Plan / Payer (Ef fective 2022-Present) Name:Deanna Donan Relation to Subscriber:Self Name:Yazan Don Payer ID:Not on file Group ID:Not on file Type:Medicaid Address: [address] PPO Care Teams Corporate Safety Coordinator Relationship Specialty Start Date End Date Unknown, Unknown, PCP - General 07/23/22 Additional Source Comments The information contained in this document represents components of the legal health record. It is not the complete legal health record.[facility]
== END 2025-04-27 10:44 | disposition home or self-care (01) ==
LOC: HO.ENCR 10:26
PROVIDERS: PCP Physician Assistant; Visit Provider Internal Medicine Endocrinology, Diabetes & Metabolism
DX: D35.00 Benign neoplasm of unspecified adrenal gland (principal)
CPT/HCPCS: 99213